=== PATIENT | male | born 1945 | race Caucasian/White ===

== ENCOUNTER → 2017-03-29 | Outpatient (CLI) | payer MEDICARE, BC ==
--- NOTE | 2017-03-29 14:06 | RADIOLOGY REPORT (SQ) ---
EXAM DESCRIPTION: CT ABD/PELVIS WITH IV ONLY COMPLETED DATE/TIME: 03/29/2017 1:30 pm REASON FOR STUDY: ABDOMINAL PAIN R10.11 RIGHT UPPER QUADRANT PAIN R11.2 NAUSEA WITH VOMITING, UNSP ECIFIED R10.9 UNSPECIFIED ABDOMINAL PAIN COMPARISON: None. TECHNIQUE: CT scan of the abdomen and pelvis performed using helical scanning technique with dynamic intravenous contrast injection. No oral contrast. Images reviewed with lung, soft tissue, and bone windows. Reconstructed coronal and sagittal MPR images reviewed. Delayed images for evaluation of the urinary system also acquired. All images stored on PACS. All CT scanners at this facility use dose modulation, iterative reconstruction, and/or weight based d osing when appropriate to reduce radiation dose to as low as reasonably achievable (ALARA). [facility]: Dose Right [facility]: CareDose [facility]: Dose Right [facility]: Teradose 4D [facility]: A V.E.T.S.c.a.r.e. CONTRAST TYPE AND DOSE: contrast/concentration: Isovue 370.00 mg/ml; Total Contrast Delivered: 100.0 ml; Total Saline Delivered: 72.0 ml RENAL FUNCTION: Creatinine 0.8 RADIATION DOSE: Up-to-date CT equipment and radiation dose reduction techniques were employed. CTDIv ol: 16.0 - 18.2 mGy. DLP: 1996 mGy-cm.. LIMITATIONS: None. FINDINGS: LOWER CHEST: Small hiatal hernia. Coronary artery calcifications. Lung bases are clear. LIVER: Normal size. No masses. No dilated ducts. SPLEEN: Normal size. No focal lesions. PANCREAS: No masses. No significant calcifications. No adjacent inflammation or peripancreatic fluid collections. Pancreatic duct not dilated. GALLBLADDER: No identified stones by CT criteria. No inflammatory changes to suggest cholecystitis. ADRENAL GLANDS: No significant masses or asymmetry. RIGHT KIDNEY AND URETER: No solid masses. An 8 mm right ureteral stone is present at the level of t he L3-4 disc space, best shown on axial image 55 and coronal image 58. This causes moderate right-si ded hydronephrosis and upper hydroureter. LEFT KIDNEY AND URETER: No solid masses. No significant calcifications. No hydronephrosis or hydr oureter. AORTA AND VESSELS: No aneurysm. No dissection. Renal arteries, SMA, celiac without stenosis. RETROPERITONEUM: No retroperitoneal adenopathy, hemorrhage or masses. BOWEL AND PERITONEAL CAVITY: No masses or inflammatory changes. No free fluid or peritoneal masses. Few descending and sigmoid colon diverticuli. APPENDIX: Normal. PELVIS: No mass. No free fluid. Normal bladder. ABDOMINAL WALL: No masses. No hernias. BONES: Diffuse degenerative changes lower lumbar spine. OTHER: No other significant finding. IMPRESSION: 8 mm right ureteral stone causing moderate right-sided hydronephrosis and hydroureter. Report called to Alfreda DEGROOT, 1400 hours 03/29/2017 TECHNICAL DOCUMENTATION: JOB ID: [id number] Quality ID # [id number]: Final reports with documentation of one or more dose reduction techniques (e.g., Au tomated exposure control, adjustment of the mA and/or kV according to patient size, use of iterative reconstruction technique) 2010 [employer]- All Rights Reserved
== END ==
LOC: RAD 11:50
PROVIDERS: ATTEND Physician Assistant
DX: R10.9 Unspecified abdominal pain (principal)
CPT/HCPCS: 74177; 82565

== ENCOUNTER 2017-07-13 13:00 | Emergency (ER) | payer MEDICARE, BC ==
--- NOTE | 2017-07-13 13:27 | ER Document Report ---
HPI - HPI Notes: Patient is a 72-year-old male with a history of progressive supranuclear palsy, RLS, hypertension who presents to the ED for evaluation status post fall from his motorized wheelchair prior to arrival. Roller Skater states that his wheel caught an object and tipped him over and he landed in the grass. Roller Skater states that he did not hit his head, lose consciousness, or have any nausea vomiting. Patient states that his glasses cut the left side of his nose, but he has no other pain or discomfort. Family states that they just wanted him checked out as precautionary. Patient states that he feels well and is ready to go home. They have not noticed any other bruising, swelling, or changes in his mentation/speech/behavior. Denies any drug allergies. Denies any headache , fever, head injury, neck pain, recent illness, URI, sore throat, chest pain, palpitations, syncope, cough, shortness of breath, wheeze, dyspnea, abdominal pain, nausea/vomiting/diarrhea, urinary retention, dysuria, hematuria, back pain , joint pain, loss of control of bowel or bladder, numbness/tingling, saddle anesthesia, muscle paralysis/weakness, or rash. - ROS Notes: REVIEW OF SYSTEMS: CONSTITUTIONAL : Denies fever, chills, or sweats. Denies recent illness. EENT: Denies eye, ear, throat, or mouth pain or symptoms. Denies nasal or sinus congestion or discharge. Denies throat, tongue, or mouth swelling or difficulty swallowing. CARDIOVASCULAR: Denies chest pain. Denies palpitations or racing or irregular heart beat. Denies ankle edema. RESPIRATORY: Denies cough, cold, or chest congestion. Denies shortness of breath, difficulty breathing, or wheezing. GASTROINTESTINAL: Denies abdominal pain or distention. Denies nausea, vomiting , or diarrhea. Denies blood in vomitus, stools, or per rectum. Denies black, tarry stools. Denies constipation. GENITOURINARY: Denies difficulty urinating, painful urination, burning, frequency, blood in urine, or discharge. MUSCULOSKELETAL: see hpi. Denies back or neck pain or stiffness. Denies joint pain or swelling. SKIN: see hpi NEUROLOGICAL: see hpi. Denies confusion or altered mental status. Denies passing out or loss of consciousness. Denies dizziness or lightheadedness. Denies headache. Denies weakness or paralysis or loss of use of either side. Denies problems with gait or speech. Denies sensory loss, numbness, or tingling. Denies seizures. PSYCHIATRIC: Denies anxiety or stress. Denies depression, suicidal ideation, or homicidal ideation. ALL OTHER SYSTEMS REVIEWED AND NEGATIVE. Dictation was performed using [employer] voice recognition software Past Medical History - Social History Smoking Status: Never Smoker Family History: Reviewed & Not Pertinent Vertical Provider Document - CONSTITUTIONAL Agree With Documented VS: Yes Notes: PHYSICAL EXAMINATION: GENERAL: Well-appearing, well-nourished and in no acute distress. A&Ox4 HEAD: Atraumatic, normocephalic. Non-tender. No lucero sign EYES: Pupils equal round and reactive to light, extraocular movements intact, sclera anicteric, conjunctiva are normal. No raccoon eyes/entrapment ENT: EAC clear b/l. TM's intact b/l without erythema, fluid, or perforation. Nares patent and without discharge. oropharynx clear without exudates. No tonsilar hypertrophy or erythema. Moist mucous membranes. No sinus tenderness. No hemotympanum/CSF discharge. Nose: Small 0.5cm abrasion to the left lateral nose. Septum midline. No epistaxis. NECK: Normal range of motion, supple without lymphadenopathy. No rigidity. No midline tenderness. Spurling negative. NEXUS negative. Chest: No flail chest. equal rise/fall. Non-tender. no ecchymosis. LUNGS: Breath sounds clear to auscultation bilaterally and equal. No wheezes rales or rhonchi. HEART: Regular rate and rhythm without murmurs, rubs, gallops. ABDOMEN: Soft, nontender, nondistended abdomen. No guarding, no rebound. No masses appreciated. Normal bowel sounds present. No CVA tenderness bilaterally. No ecchymosis. Musculoskeletal: Ext b/l: FROM to passive/active. Strength 5+/5. No deficits noted. No bony tenderness of extremities. Back: FROM to passive/active. Strength 5+/5. No vertebral point tenderness, stepoffs, or deformities. No other bony tenderness or ecchymosis. Extremities: No cyanosis, clubbing, or edema b/l. Peripheral pulses 2+. Capillary refill less than 2 seconds. NEUROLOGICAL: MMSE intact. Cranial nerves grossly intact. Normal speech. Normal sensory, motor exams. Reflexes 2+ b/l. ALDEN's negative. Pronator drift negative. Heel/christianson, finger/nose wnl. PSYCH: Normal mood, normal affect. SKIN: Warm, Dry, normal turgor, no rashes or lesions noted. - INFECTION CONTROL TRAVEL OUTSIDE OF THE [place] IN LAST 30 DAYS: No Course - Re-evaluation Re-evalutation: 07/13/17 13:27 Patient is an afebrile, well-hydrated, 72-year-old male who presents the ED with an abrasion to the left lateral nose. Vitals are stable. PE is otherwise unremarkable for any patient does have a history acute focal neurological deficits. Pt does have a h/o progressive supranuclear palsy and RLS, but family states he is at baseline with his speech/behavior/mentation. No other imaging warranted at this time based on H&P. Low suspicion for any acute glaucoma, temporal arteritis, meningitis, intracranial hemorrhage, ischemic stroke, or fracture at this time. Patient is aware that his condition can change from initial presentation and that he needs to monitor symptoms closely for any acute changes. The small abrasion the left lateral nose was cleaned and bacitracin was placed prior to discharge. Recommend conservative measures for symptoms with close monitoring. Recheck with your PCM in 3-5 days. Return to the ED with any worsening/concerning symptoms otherwise as reviewed in discharge. Patient, family, and caretakers are in agreement. Discharge - Discharge Clinical Impression: Nose abrasion, non-infected Fall from motorized mobility scooter Qualifiers: Encounter type: initial encounter Qualified Code(s): V00.831A - Fall from motorized mobility scooter, initial encounter Condition: Stable Disposition: HOME, SELF-CARE Instructions: Abrasions of the Face ([facility]) Additional Instructions: Rest, Ice if needed Triple antibiotic ointment as directed Monitor for any signs of infection is Tylenol/ibuprofen as needed Light stretches daily Strength exercises as able Moist heat and massage may help F/u with your PCP in 3-5 days for a recheck Consider consult(s) with Orthopedics/physical therapy for ongoing/worsening symptoms Return to the ED with any worsening symptoms and/or development of fever, headache, chest pain, palpitations, syncope, shortness of breath, trouble breathing, abdominal pain, n/v/d, muscle weakness/paralysis, numbness/tingling, swelling, redness, or other worsening symptoms that are concerning to you. Forms: Elevated Blood Pressure Referrals: SADIQ ARMSTRONG MD [NO LOCAL MD] - Follow up in 3-5 days
[2017-07-13 13:41] VITALS: BP 159/77
== END 2017-07-13 13:40 | disposition home or self-care (01) ==
LOC: ER 13:00
DX: S00.31XA Abrasion of nose, initial encounter (principal); V00.831A Fall from motorized mobility scooter, initial encounter; G23.1 Progressive supranuclear ophthalmoplegia [Steele-Richardson-Olszewski]
CPT/HCPCS: 99283

== ENCOUNTER 2018-01-01 10:49 | Inpatient (IN) | payer MEDICARE, BC ==
[2018-01-01] MEDS ORDERED: NORMAL SALINE 1000 ML 1,000 ML IV ONE ×2 (11:02→13:44)
--- NOTE | 2018-01-01 11:04 | ER Document Report ---
ED Medical Screen (RME) - General Chief Complaint: Breathing Difficulty Stated Complaint: BREATHING ISSUES Time Seen by Provider: 01/01/18 10:57 Notes: RAPID MEDICAL EVALUATION DISCLOSURE I have seen this patient as part of a Rapid Medical Evaluation and, if applicable, placed any initially appropriate orders. The patient will be seen and fully evaluated, including a full history and physical exam, by a provider ( in Main ED or Fast Track) when a room becomes available. 72-year-old male PMH Progresive Supranuclear Palsy here with who states he has had cough congestion ongoing for the past few days and has been progressively worsening. They called the PCP and he was prescribed Bactrim, of which he is on day 2, and he is not getting any better per the . He is having not only worsening cough but now shortness of breath. He has no prior history of pneumonia they report. He is also having some subjective fevers but unmeasured. EXAM Diffuse coarse breath sounds Normal aeration Mild tachycardia 110s TRAVEL OUTSIDE OF THE [place] IN LAST 30 DAYS: No - Related Data Allergies/Adverse Reactions: acetaminophen [From Percocet] Allergy (Verified 01/01/18 10:50) erythromycin base [From Staticin] Allergy (Verified 01/01/18 10:50) ethyl alcohol [From Staticin] Allergy (Verified 01/01/18 10:50) oxycodone [From Percocet] Allergy (Verified 01/01/18 10:50) Sulfa (Sulfonamide Antibiotics) Allergy (Verified 01/01/18 10:50) Past Medical History Renal/ Medical History: Denies: Hx Peritoneal Dialysis Past Surgical History: Reports: Hx Open Heart Surgery Physical Exam - Vital signs Vitals: Pulse Resp BP Pulse Ox 113 H 26 H 164/89 H 94 01/01/18 10:54 01/01/18 10:54 01/01/18 10:54 01/01/18 10:54 Course - Vital Signs Vital signs: Temp Pulse Resp BP Pulse Ox 113 H 26 H 164/89 H 94 01/01/18 10:54 01/01/18 10:54 01/01/18 10:54 01/01/18 10:54
--- NOTE | 2018-01-01 11:40 | ER Document Report ---
ED General - General Chief Complaint: Breathing Difficulty Stated Complaint: BREATHING ISSUES Time Seen by Provider: 01/01/18 10:57 TRAVEL OUTSIDE OF THE [place] IN LAST 30 DAYS: No - HPI Patient complains to provider of: Difficulty breathing Notes: Patient has a history of progressive supranuclear palsy coming in today for difficulty breathing PCP is Dr. Frank Mensah according to family members patient was recently seen by Dr. Mensah because of difficulty breathing was started on Bactrim patient is on day 2 of his Bactrim. Patient according to the at bedside does have a DNR. Otherwise no changes in the patient's recent medications no traveled states patient felt hot however no fever noted. Patient's had increased secretions that are thick however no color changes clear sputum. States the difficulty breathing has worsened over the last few days. Upon my evaluation patient is tachypneic however no signs of hypoxia denies any chest pain abdominal pain states slight nausea - Related Data Allergies/Adverse Reactions: acetaminophen [From Percocet] Allergy (Verified 01/01/18 10:50) erythromycin base [From Staticin] Allergy (Verified 01/01/18 10:50) ethyl alcohol [From Staticin] Allergy (Verified 01/01/18 10:50) oxycodone [From Percocet] Allergy (Verified 01/01/18 10:50) Sulfa (Sulfonamide Antibiotics) Allergy (Verified 01/01/18 10:50) Past Medical History - Social History Smoking Status: Former Smoker Chew tobacco use (# tins/day): No Frequency of alcohol use: None Drug Abuse: None Family History: Reviewed & Not Pertinent Patient has suicidal ideation: No Patient has homicidal ideation: No Renal/ Medical History: Denies: Hx Peritoneal Dialysis Past Surgical History: Reports: Hx Open Heart Surgery Review of Systems - Review of Systems Constitutional: No symptoms reported EENT: No symptoms reported Cardiovascular: No symptoms reported Respiratory: Cough, Short of breath Gastrointestinal: No symptoms reported Genitourinary: No symptoms reported Male Genitourinary: No symptoms reported Musculoskeletal: No symptoms reported Skin: No symptoms reported Hematologic/Lymphatic: No symptoms reported Neurological/Psychological: No symptoms reported -: Yes All other systems reviewed and negative Physical Exam - Vital signs Vitals: Pulse Resp BP Pulse Ox 113 H 26 H 164/89 H 94 01/01/18 10:54 01/01/18 10:54 01/01/18 10:54 01/01/18 10:54 Interpretation: Tachypneic - General General appearance: Appears well, Alert - HEENT Head: Normocephalic, Atraumatic Eyes: Normal Pupils: PERRL - Respiratory Respiratory status: Respiratory distress - Mild tachypnea, Tachypnea Chest status: Nontender Breath sounds: Rhonchi - Course right greater than left tracheal sounds as well Chest palpation: Normal - Cardiovascular Rhythm: Regular Heart sounds: Normal auscultation Murmur: No - Abdominal Inspection: Normal Distension: No distension Bowel sounds: Normal Tenderness: Nontender Organomegaly: No organomegaly - Back Back: Normal, Nontender - Extremities General upper extremity: Normal inspection, Nontender General lower extremity: Normal inspection, Nontender - Neurological Neuro grossly intact: Yes Cognition: Normal Orientation: AAOx4 [place] Coma Scale Eye Opening: Spontaneous [place] Coma Scale Verbal: Oriented [place] Coma Scale Motor: Obeys Commands [place] Coma Scale Total: 15 Cranial nerves: Other - Slurring garbled speech according to family members is normal due to his progressive supranuclear palsy Sensory: Normal - Psychological Associated symptoms: Normal affect, Normal mood - Skin Skin Temperature: Warm Skin Moisture: Dry Skin Color: Normal Course - Re-evaluation Re-evalutation: 01/01/18 15:25 Patient is tracheal coarse lung sounds to be distant thick secretions patient was given IV fluids and given DuoNeb and 3% normal saline which did improve his lung sounds however patient continued to be tachypneic no significant hypoxia noted this. He will ranged between 90 and 95 however because of increased respiratory rate and elevation of lactic acid placed patient on BiPAP for further evaluation. Discussed with hospitalist will admit the patient chest x- ray read as negative but I am concerned for possible aspiration is that the patient's lung sounds are more coarse on the right than left therefore we will cover Levaquin - Vital Signs Vital signs: Temp Pulse Resp BP Pulse Ox 113 H 33 H 145/78 H 99 01/01/18 10:54 01/01/18 14:16 01/01/18 11:33 01/01/18 14:16 - Laboratory Result Diagrams: 01/01/18 11:25 01/01/18 11:25 Laboratory results interpreted by me: 01/01/18 01/01/18 01/01/18 11:25 11:25 11:25 Monocytes % 16.1 H VBG pH Glucose 136 H Lactic Acid 2.7 H 01/01/18 11:25 Monocytes % VBG pH 7.44 H Glucose Lactic Acid Critical Care Note - Critical Care Note Total time excluding time spent on procedures (mins): 35 Comments: Patient required BiPAP for mild restrictive stress Discharge - Discharge Clinical Impression: Progressive supranuclear palsy Aspiration pneumonia Qualifiers: Aspiration pneumonia type: unspecified Laterality: unspecified laterality Lung location: unspecified part of lung Qualified Code(s): J69.0 - Pneumonitis due to inhalation of food and vomit Condition: Stable Disposition: ADMITTED INPATIENT [facility] Unit Admitted: [facility]
[2018-01-01 12:09] LABS: ABSOLUTE EOSINOPHILS # (AUTO) 0.1 10^3/uL (0.0-0.6); ABSOLUTE LYMPHOCYTES (AUTO) 0.9 10^3/uL (0.5-4.7); ABSOLUTE NEUT (AUTO) 4.1 10^3/uL (1.7-8.2); BASOPHILS % (AUTO) 0.8 % (0-2); EOSINOPHILS % (AUTO) 1.8 % (0-6); HEMATOCRIT 48.1 % (37.9-51.0); HEMOGLOBIN 16.5 g/dL (13.5-17.0); LYMPHOCYTES % (AUTO) 14.5 % (13-45); MEAN CORPUSCULAR HEMOGLOBIN 32.7 pg (27.0-33.4); MEAN CORPUSCULAR HGB CONC 34.2 g/dL (32.0-36.0); MEAN CORPUSCULAR VOLUME 95 fl (80-97); MONOCYTES % (AUTO) 16.1 % (3-13); PLATELET COUNT 228 10^3/uL (150-450); RED BLOOD COUNT 5.05 10^6/uL (4.35-5.55); RED CELL DISTRIBUTION WIDTH 13.7 % (11.5-14.0); SEGMENTED NEUTROPHILS % (AUTO) 66.8 % (42-78); TOTAL CELLS COUNTED % (AUTO) 100 %; WHITE BLOOD COUNT 6.2 10^3/uL (4.0-10.5)
[2018-01-01 12:10] LABS: VENOUS BLOOD BASE EXCESS 0.8 mmol/L; VENOUS BLOOD HCO3 24.4 mmol/L (20-32); VENOUS BLOOD PCO2 36.4 mmHg (35-63); VENOUS BLOOD PH 7.44 (7.30-7.42)
--- NOTE | 2018-01-01 12:14 | RADIOLOGY REPORT (SQ) ---
EXAM DESCRIPTION: CHEST 2 VIEWS COMPLETED DATE/TIME: 01/01/2018 11:59 am REASON FOR STUDY: cough congestion; eval pneumonia COMPARISON: None. EXAM PARAMETERS: NUMBER OF VIEWS: two views TECHNIQUE: Digital Frontal and Lateral radiographic views of the chest acquired. RADIATION DOSE: NA LIMITATIONS: none FINDINGS: LUNGS AND PLEURA: No opacities, masses or pneumothorax. No pleural effusion. MEDIASTINUM AND HILAR STRUCTURES: No masses or contour abnormalities. HEART AND VASCULAR STRUCTURES: Heart normal size. No evidence for failure. BONES: No acute findings. HARDWARE: CABG. OTHER: No other significant finding. IMPRESSION: NO ACUTE RADIOGRAPHIC FINDING IN THE CHEST. TECHNICAL DOCUMENTATION: JOB ID: [id number] [employer]- All Rights Reserved Reading location - IP/workstation name: [email or web address]
[2018-01-01 12:29] LABS: ALANINE AMINOTRANSFERASE 31 U/L (21-72); ALBUMIN 4.3 g/dL (3.5-5.0); ALKALINE PHOSPHATASE 93 U/L (38-126); ANION GAP 13 (5-19); ASPARTATE AMINO TRANSFERASE 32 U/L (17-59); BILIRUBIN,DIRECT 0.4 mg/dL (0.0-0.4); BILIRUBIN,TOTAL 0.7 mg/dL (0.2-1.3); BLOOD UREA NITROGEN 13 mg/dL (7-20); CALCIUM 9.6 mg/dL (8.4-10.2); CARBON DIOXIDE 24 mmol/L (22-30); CHLORIDE 107 mmol/L (98-107); GLUCOSE 136 mg/dL (75-110); POTASSIUM 3.7 mmol/L (3.6-5.0); SODIUM 144.2 mmol/L (137-145); TOTAL PROTEIN 7.3 g/dL (6.3-8.2)
[2018-01-01] MEDS ORDERED: IPRATROPIUM/ALBUTEROL 0.5-2.5 MG/3 ML AMPUL NEB ONE ×2 (12:30→16:00)
[2018-01-01] MEDS ORDERED: SODIUM CHLORIDE 3% FOR INHALATION 15 ML AMPUL NEB PRN (12:50)
[2018-01-01] MEDS ORDERED: LEVOFLOXACIN 500 MG/D5W RTU 500 MG/100 ML RTUPB IV ONE (14:24)
[2018-01-01] MEDS ORDERED: ONDANSETRON HCL INJ/PF 4 MG/2 ML SDV IV PRN (14:44)
--- NOTE | 2018-01-01 15:03 | PDOC H&P ---
History of Present Illness Admission Date/PCP: SADIQ ARMSTRONG MD History of Present Illness: SURYA ALEXIS is a 72 year old male patient who carries the diagnosis of progressive supranuclear palsy brought by EMS his chief complaint of shortness of breath. Since patient has supra nuclear palsy his speech has profound nasal quality so it is difficult to comprehend his speech. Brief history is obtained from his and reviewing chart this. Per his patient has had cough, congestion and shortness of breath. For the above- mentioned complaint is patient visited his primary care physician who started him on Bactrim. After taking for 2 days his conditions gets worse so they brought him to hospital. When he arrived patient is tachypneic with respiratory rate of 30, and tachycardic with heart rate of 113. His labs are unremarkable with the exception of mildly elevated lactic acid which is 2.7. Chest x-ray is also unremarkable. Probably patient has aspiration pneumonia. Further detailed history and review of systems unobtainable. Past Medical History Neurological History Note: Progressive supranuclear palsy Past Surgical History Past Surgical History: Reports: Other Social History Smoking Status: Former Smoker Frequency of Alcohol Use: None Hx Recreational Drug Use: No Drugs: None - Advance Directive Resuscitation Status: Do Not Resuscitate Family History Family History: Reviewed & Not Pertinent, CAD Parental Family History Reviewed: Yes Children Family History Reviewed: Yes Sibling(s) Family History Reviewed.: Yes Medication/Allergy Allergies/Adverse Reactions: acetaminophen [From Percocet] Allergy (Verified 01/01/18 10:50) erythromycin base [From Staticin] Allergy (Verified 01/01/18 10:50) ethyl alcohol [From Staticin] Allergy (Verified 01/01/18 10:50) oxycodone [From Percocet] Allergy (Verified 01/01/18 10:50) Sulfa (Sulfonamide Antibiotics) Allergy (Verified 01/01/18 10:50) Review of Systems ROS unobtainable: Other - Because of nausea quality of his speech Physical Exam Vital Signs: Temp Pulse Resp BP Pulse Ox 113 H 34 H 145/78 H 95 01/01/18 10:54 01/01/18 11:33 01/01/18 11:33 01/01/18 11:44 Intake & Output 12/31/17 01/01/18 01/02/18 06:59 06:59 06:59 Weight 97.522 kg General appearance: PRESENT: mild distress Head exam: PRESENT: atraumatic, normocephalic Eye exam: PRESENT: conjunctiva pink, EOMI, PERRLA. ABSENT: scleral icterus Neck exam: ABSENT: carotid bruit, JVD, lymphadenopathy, thyromegaly Respiratory exam: PRESENT: crackles, rhonchi, tachypnea Cardiovascular exam: PRESENT: tachycardia GI/Abdominal exam: PRESENT: normal bowel sounds, soft. ABSENT: distended, guarding, mass, organolmegaly, rebound, tenderness Neurological exam: PRESENT: alert, awake Psychiatric exam: PRESENT: appropriate affect, normal mood. ABSENT: homicidal ideation, suicidal ideation Results Laboratory Results: 01/01/18 11:25 01/01/18 11:25 01/01/18 01/01/18 01/01/18 11:25 11:25 11:25 WBC 6.2 RBC 5.05 Hgb 16.5 Hct 48.1 MCV 95 MCH 32.7 MCHC 34.2 RDW 13.7 Plt Count 228 Seg Neutrophils % 66.8 Lymphocytes % 14.5 Monocytes % 16.1 H Eosinophils % 1.8 Basophils % 0.8 Absolute Neutrophils 4.1 Absolute Lymphocytes 0.9 Absolute Monocytes 1.0 Absolute Eosinophils 0.1 Absolute Basophils 0.0 VBG pH VBG pCO2 VBG HCO3 VBG Base Excess Sodium 144.2 Potassium 3.7 Chloride 107 Carbon Dioxide 24 Anion Gap 13 BUN 13 Creatinine 0.81 Est GFR ( Amer) > 60 Est GFR (Non-Af Amer) > 60 Glucose 136 H Lactic Acid 2.7 H Calcium 9.6 Total Bilirubin 0.7 AST 32 ALT 31 Alkaline Phosphatase 93 Total Protein 7.3 Albumin 4.3 01/01/18 11:25 WBC RBC Hgb Hct MCV MCH MCHC RDW Plt Count Seg Neutrophils % Lymphocytes % Monocytes % Eosinophils % Basophils % Absolute Neutrophils Absolute Lymphocytes Absolute Monocytes Absolute Eosinophils Absolute Basophils VBG pH 7.44 H VBG pCO2 36.4 VBG HCO3 24.4 VBG Base Excess 0.8 Sodium Potassium Chloride Carbon Dioxide Anion Gap BUN Creatinine Est GFR ( Amer) Est GFR (Non-Af Amer) Glucose Lactic Acid Calcium Total Bilirubin AST ALT Alkaline Phosphatase Total Protein Albumin Impressions: Chest X-Ray 01/01/18 11:01 IMPRESSION: NO ACUTE RADIOGRAPHIC FINDING IN THE CHEST. Assessment & Plan - Diagnosis (1) Aspiration pneumonia Qualifiers: Lung location: unspecified part of lung Is this a current diagnosis for this admission?: Yes Plan: Patient has been started on clindamycin, DuoNeb, BiPAP and supplemental oxygen. (2) Progressive supranuclear palsy Is this a current diagnosis for this admission?: Yes Plan: Continue his home medication. - Time Time Spent: 30 to 50 Minutes - Inpatient Certification Medical Necessity: Need Close Monitoring Due to Risk of Patient Decompensation, Need for IV Antibiotics
[2018-01-01] MEDS ORDERED: ENOXAPARIN SODIUM INJ 40 MG/0.4 ML DISP.SYRIN SUBCUT ONE (15:30)
[2018-01-01] MEDS ORDERED: CLINDAMYCIN RTU 600 MG/D5W 50 ML IV ONE (16:00)
[2018-01-01] MEDS ORDERED: NITROGLYCERIN 0.4 MG/TAB 25 TAB/BOTTLE SL PRN (17:37)
[2018-01-01] MEDS ORDERED: (PENDING PHARMACY ID) (Ketotifen Fumarate [Refresh] 1 DROP) OU SCH (18:00)
[2018-01-01] MEDS ORDERED: ASPIRIN 81 MG TABLET, ENT COATED PO ONE (18:30)
[2018-01-01] MEDS ORDERED: EZETIMIBE 10 MG TABLET PO ONE (18:30)
[2018-01-01] MEDS ORDERED: CITALOPRAM HYDROBROMIDE 20 MG TABLET PO ONE (18:30)
[2018-01-01] MEDS ORDERED: IPRATROPIUM BROMIDE HFA 17 MCG/PUFF 200 PUFF/12.9 GM MDI IH ONE (19:26)
[2018-01-01] MEDS: PANTOPRAZOLE SODIUM 40 MG VIAL IV SCH (19:30)
[2018-01-01] MEDS: IPRATROPIUM BROMIDE 0.06% NASAL SPRAY 15 ML NASL SCH (19:31)
[2018-01-01] MEDS: IPRATROPIUM/ALBUTEROL 0.5-2.5 MG/3 ML AMPUL NEB SCH (20:03)
[2018-01-01] MEDS ORDERED: TEMAZEPAM 15 MG CAPSULE ONE (20:57)
[2018-01-01] MEDS: QUETIAPINE FUMARATE 25 MG TABLET PO SCH (21:12)
[2018-01-01] MEDS: TEMAZEPAM 15 MG CAPSULE PO SCH (21:12)
[2018-01-01] MEDS: CLINDAMYCIN 600 MG/D5W RTU 600 MG/50 ML RTUPB IV SCH (21:12)
[2018-01-01] MEDS: HYDROCODONE/ACETAMINOPHEN 5-325 MG TABLET PO SCH (21:12)
[2018-01-01] MEDS ORDERED: MINERAL OIL OU SCH (22:00)
[2018-01-01] MEDS ORDERED: PETROLATUM WHITE OU SCH (22:00)
[2018-01-02] MEDS: IPRATROPIUM/ALBUTEROL 0.5-2.5 MG/3 ML AMPUL NEB SCH ×4 (01:54→19:56)
[2018-01-02 05:13] LABS: ABSOLUTE EOSINOPHILS # (AUTO) 0.1 10^3/uL (0.0-0.6); ABSOLUTE LYMPHOCYTES (AUTO) 1.3 10^3/uL (0.5-4.7); ABSOLUTE MONOCYTES (AUTO) 0.9 10^3/uL (0.1-1.4); ABSOLUTE NEUT (AUTO) 2.8 10^3/uL (1.7-8.2); BASOPHILS % (AUTO) 0.5 % (0-2); LYMPHOCYTES % (AUTO) 24.5 % (13-45); MEAN CORPUSCULAR HEMOGLOBIN 32.9 pg (27.0-33.4); MEAN CORPUSCULAR HGB CONC 33.9 g/dL (32.0-36.0); MEAN CORPUSCULAR VOLUME 97 fl (80-97); MONOCYTES % (AUTO) 18.5 % (3-13); PLATELET COUNT 190 10^3/uL (150-450); RED BLOOD COUNT 4.34 10^6/uL (4.35-5.55); RED CELL DISTRIBUTION WIDTH 13.8 % (11.5-14.0); SEGMENTED NEUTROPHILS % (AUTO) 55.5 % (42-78); TOTAL CELLS COUNTED % (AUTO) 100 %; WHITE BLOOD COUNT 5.1 10^3/uL (4.0-10.5)
[2018-01-02 05:17] LABS: HEMOGLOBIN 14.3 g/dL (13.5-17.0)
[2018-01-02 05:29] LABS: ANION GAP 11 (5-19); BLOOD UREA NITROGEN 19 mg/dL (7-20); CALCIUM 8.8 mg/dL (8.4-10.2); CARBON DIOXIDE 26 mmol/L (22-30); CHLORIDE 109 mmol/L (98-107); GLUCOSE 92 mg/dL (75-110); POTASSIUM 3.7 mmol/L (3.6-5.0); SODIUM 145.8 mmol/L (137-145)
[2018-01-02] MEDS: CLINDAMYCIN 600 MG/D5W RTU 600 MG/50 ML RTUPB IV SCH ×3 (05:40→21:13)
[2018-01-02] MEDS: HYDROCODONE/ACETAMINOPHEN 5-325 MG TABLET PO SCH ×3 (05:41→21:13)
[2018-01-02] MEDS ORDERED: (PENDING PHARMACY ID) (Multivit-Min/Fa/Lycopen/Lutein [Centrum Silver Men Tablet] 1 EACH) PO SCH (10:00)
[2018-01-02] MEDS ORDERED: RAMIPRIL 10 MG CAPSULE PO SCH (10:00)
[2018-01-02] MEDS: EZETIMIBE 10 MG TABLET PO SCH (10:35)
[2018-01-02] MEDS: AMLODIPINE BESYLATE 10 MG TABLET PO SCH (10:35)
[2018-01-02] MEDS: ASPIRIN 81 MG TABLET, ENT COATED PO SCH (10:36)
[2018-01-02] MEDS: CITALOPRAM HYDROBROMIDE 20 MG TABLET PO SCH (10:36)
[2018-01-02] MEDS: IPRATROPIUM BROMIDE 0.06% NASAL SPRAY 15 ML NASL SCH ×3 (10:38→17:33)
[2018-01-02] MEDS: PREDNISOLONE ACETATE 1% OPH SUSP 5 ML OD SCH (10:39)
[2018-01-02] MEDS: POLYETHYLENE GLYCOL 3350 POWDER 17 GM/1 PACKET PO SCH (10:39)
[2018-01-02] MEDS: ENOXAPARIN SODIUM INJ 40 MG/0.4 ML DISP.SYRIN SUBCUT SCH (10:40)
[2018-01-02] MEDS ORDERED: RAMIPRIL 2.5 MG CAPSULE PO ONE (11:30)
[2018-01-02] MEDS ORDERED: RAMIPRIL 10 MG CAPSULE PO ONE (11:30)
--- NOTE | 2018-01-02 13:21 | PDOC PROGRESS REPORT ---
Subjective Progress Note for:: 01/02/18 Subjective:: I seen patient prepped and draped in bed and radiating to his breakfast. He is awake alert and communicative. Reportedly patient has a restful night after he started on BiPAP. Reason For Visit: ASPIRATION PNEUMONIA Physical Exam Vital Signs: Temp Pulse Resp BP Pulse Ox 98.1 F 83 30 H 133/74 H 96 01/02/18 07:10 01/02/18 08:19 01/02/18 08:19 01/02/18 07:10 01/02/18 08:19 Intake & Output 01/01/18 01/02/18 01/03/18 06:59 06:59 06:59 Intake Total 120 Output Total 0 Balance 120 Weight 96.9 kg General appearance: PRESENT: no acute distress, well-developed, well-nourished Eye exam: PRESENT: conjunctiva pink, EOMI, PERRLA. ABSENT: scleral icterus Neck exam: ABSENT: carotid bruit, JVD, lymphadenopathy, thyromegaly Respiratory exam: PRESENT: clear to auscultation feliz Cardiovascular exam: PRESENT: RRR. ABSENT: diastolic murmur, rubs, systolic murmur GI/Abdominal exam: PRESENT: normal bowel sounds, soft. ABSENT: distended, guarding, mass, organolmegaly, rebound, tenderness Neurological exam: PRESENT: alert, awake Psychiatric exam: PRESENT: normal mood Results Laboratory Results: 01/02/18 04:43 01/02/18 04:43 01/01/18 01/02/18 01/02/18 15:49 04:43 04:43 WBC 5.1 RBC 4.34 L Hgb 14.3 D Hct 42.0 MCV 97 MCH 32.9 MCHC 33.9 RDW 13.8 Plt Count 190 Seg Neutrophils % 55.5 Lymphocytes % 24.5 Monocytes % 18.5 H Eosinophils % 1.0 Basophils % 0.5 Absolute Neutrophils 2.8 Absolute Lymphocytes 1.3 Absolute Monocytes 0.9 Absolute Eosinophils 0.1 Absolute Basophils 0.0 Sodium 145.8 H Potassium 3.7 Chloride 109 H Carbon Dioxide 26 Anion Gap 11 BUN 19 Creatinine 0.67 Est GFR ( Amer) > 60 Est GFR (Non-Af Amer) > 60 Glucose 92 Lactic Acid 1.4 Calcium 8.8 Magnesium 2.4 H Impressions: Chest X-Ray 01/01/18 11:01 IMPRESSION: NO ACUTE RADIOGRAPHIC FINDING IN THE CHEST. Assessment & Plan - Diagnosis (1) Aspiration pneumonia Qualifiers: Aspiration pneumonia type: unspecified Laterality: unspecified laterality Lung location: unspecified part of lung Qualified Code(s): J69.0 - Pneumonitis due to inhalation of food and vomit Is this a current diagnosis for this admission?: Yes Plan: I will continue his clindamycin. (2) Progressive supranuclear palsy Is this a current diagnosis for this admission?: Yes Plan: Continue his home medication. - Time Time Spent with patient: 25-34 minutes
[2018-01-02] MEDS: PANTOPRAZOLE SODIUM 40 MG VIAL IV SCH (17:33)
[2018-01-02] MEDS: QUETIAPINE FUMARATE 25 MG TABLET PO SCH (21:13)
[2018-01-02] MEDS: TEMAZEPAM 15 MG CAPSULE PO SCH (21:13)
[2018-01-03] MEDS: IPRATROPIUM/ALBUTEROL 0.5-2.5 MG/3 ML AMPUL NEB SCH ×3 (02:08→14:04)
[2018-01-03 05:29] LABS: ABSOLUTE EOSINOPHILS # (AUTO) 0.1 10^3/uL (0.0-0.6); ABSOLUTE MONOCYTES (AUTO) 0.9 10^3/uL (0.1-1.4); BASOPHILS % (AUTO) 0.6 % (0-2); EOSINOPHILS % (AUTO) 1.5 % (0-6); HEMATOCRIT 42.1 % (37.9-51.0); HEMOGLOBIN 14.4 g/dL (13.5-17.0); LYMPHOCYTES % (AUTO) 14.7 % (13-45); MEAN CORPUSCULAR HEMOGLOBIN 32.6 pg (27.0-33.4); MEAN CORPUSCULAR HGB CONC 34.1 g/dL (32.0-36.0); MEAN CORPUSCULAR VOLUME 95 fl (80-97); MONOCYTES % (AUTO) 12.7 % (3-13); PLATELET COUNT 211 10^3/uL (150-450); RED BLOOD COUNT 4.42 10^6/uL (4.35-5.55); RED CELL DISTRIBUTION WIDTH 13.6 % (11.5-14.0); SEGMENTED NEUTROPHILS % (AUTO) 70.5 % (42-78); TOTAL CELLS COUNTED % (AUTO) 100 %
[2018-01-03 05:53] LABS: ANION GAP 12 (5-19); BLOOD UREA NITROGEN 14 mg/dL (7-20); CALCIUM 8.9 mg/dL (8.4-10.2); CARBON DIOXIDE 27 mmol/L (22-30); CHLORIDE 108 mmol/L (98-107); GLUCOSE 113 mg/dL (75-110); POTASSIUM 3.9 mmol/L (3.6-5.0); SODIUM 147.4 mmol/L (137-145)
[2018-01-03] MEDS: HYDROCODONE/ACETAMINOPHEN 5-325 MG TABLET PO SCH (06:28)
[2018-01-03] MEDS: CLINDAMYCIN 600 MG/D5W RTU 600 MG/50 ML RTUPB IV SCH (06:28)
--- NOTE | 2018-01-03 09:12 | PDOC DISCHARGE SUMMARY ---
General - Admit/Disc Date/PCP Admission Date/Primary Care Provider: 01/01/18 15:37 SADIQ ARMSTRONG MD Discharge Date: 01/03/18 - Discharge Diagnosis (1) Aspiration pneumonia Is this a current diagnosis for this admission?: Yes (2) Progressive supranuclear palsy Is this a current diagnosis for this admission?: Yes - Additional Information Resuscitation Status: Do Not Resuscitate Discharge Diet: Regular Discharge Activity: Other - Patient does not ambulate Prescriptions: Clindamycin HCl 300 mg PO Q8 #14 capsule Ipratropium/Albuterol Sulfate [Duoneb 3 ml Ampul] 3 ml NEB RTQ12 #14 [email or web address] Home Medications: Amlodipine Besylate [Norvasc 10 mg Tablet] 10 mg PO DAILY 01/01/18 Aspirin [Aspirin EC] 81 mg PO DAILY 01/01/18 Citalopram Hydrobromide [Celexa] 20 mg PO DAILY 01/01/18 Ezetimibe [Zetia 10 mg Tablet] 10 mg PO DAILY 01/01/18 Famotidine [Pepcid 20 mg Tablet] 20 mg PO BID 01/01/18 Hydrocodone/Acetaminophen [Hydrocodone-Acetamin 5-325 mg] 1 each PO Q8 01/01/18 Ipratropium [place] [Atrovent 0.06% Nasal [place]] 2 spray NASL TID 01/01/18 Ketotifen Fumarate [Refresh] 1 drop OU TID 01/01/18 Mineral Oil/Petrolatum,White [Refresh P.m. Ointment] 1 drop OU QHS 01/01/18 Multivit-Min/FA/Lycopen/Lutein [Centrum Silver Men Tablet] 1 each PO DAILY 01/01 Nitroglycerin [Nitrostat 0.4 mg (1/150 Gr) Tabs 25/Bottle] 1 tab SL Q5MP PRN Polyethylene Glycol 3350 [Miralax Powder 17 gm/Packet] 1 packet PO DAILY Prednisolone Acetate [Pred Forte] 1 drop OD DAILY 01/01/18 Quetiapine Fumarate [Seroquel] 25 mg PO QHS 01/01/18 Ramipril [Altace 10 mg Capsule] 12.5 mg PO DAILY 01/01/18 Temazepam [Restoril] 30 mg PO QHS 01/01/18 Clindamycin HCl 300 mg PO Q8 #14 capsule 01/03/18 Ipratropium/Albuterol Sulfate [Duoneb 3 ml Ampul] 3 ml NEB RTQ12 #14 vial.neb History of Present Illness History of Present Illness: SRUYA ALEXIS is a 72 year old male patient who carries the diagnosis of progressive supranuclear palsy brought by EMS his chief complaint of shortness of breath. Since patient has supra nuclear palsy his speech has profound nasal quality so it is difficult to comprehend his speech. Brief history is obtained from his and reviewing chart this. Per his patient has had cough, congestion and shortness of breath. For the above- mentioned complaint is patient visited his primary care physician who started him on Bactrim. After taking for 2 days his conditions gets worse so they brought him to hospital. When he arrived patient is tachypneic with respiratory rate of 30, and tachycardic with heart rate of 113. His labs are unremarkable with the exception of mildly elevated lactic acid which is 2.7. Chest x-ray is also unremarkable. Probably patient has aspiration pneumonia. Further detailed history and review of systems unobtainable. Hospital Course Hospital Course: This is a 72 years old male patient presented with chief complaint of shortness of breath. Since patient has underlying progressive supranuclear palsy which affected his his respiration and swallowing the possibility of aspiration pneumonia considered and patient has been managed with supplemental oxygen, clindamycin and bronchodilators. Patient has been doing throughout his stay. His vital signs are stable and his labs are within normal limits and patient is good for discharge. Patient discharged with clindamycin and nebulizer machine for bronchodilator. I will continue all his home medication and follow-up with his primary care physician. Physical Exam Vital Signs: Temp Pulse Resp BP Pulse Ox 97.5 F 97 18 144/70 H 97 01/03/18 07:47 01/03/18 08:37 01/03/18 08:37 01/03/18 07:47 01/03/18 08:37 Intake & Output 01/02/18 01/03/18 01/04/18 06:59 06:59 06:59 Intake Total 120 694 Output Total 0 770 Balance 120 -76 Weight 96.9 kg 98.2 kg General appearance: PRESENT: no acute distress, well-developed, well-nourished Head exam: PRESENT: atraumatic, normocephalic Respiratory exam: PRESENT: clear to auscultation feliz. ABSENT: rales, rhonchi, wheezes Cardiovascular exam: PRESENT: RRR. ABSENT: diastolic murmur, rubs, systolic murmur GI/Abdominal exam: PRESENT: normal bowel sounds, soft. ABSENT: distended, guarding, mass, organolmegaly, rebound, tenderness Neurological exam: PRESENT: alert, awake Results Laboratory Results: 01/03/18 05:15 01/03/18 05:15 01/03/18 01/03/18 05:15 05:15 WBC 7.0 RBC 4.42 Hgb 14.4 Hct 42.1 MCV 95 MCH 32.6 MCHC 34.1 RDW 13.6 Plt Count 211 Seg Neutrophils % 70.5 Lymphocytes % 14.7 Monocytes % 12.7 Eosinophils % 1.5 Basophils % 0.6 Absolute Neutrophils 5.0 Absolute Lymphocytes 1.0 Absolute Monocytes 0.9 Absolute Eosinophils 0.1 Absolute Basophils 0.0 Sodium 147.4 H Potassium 3.9 Chloride 108 H Carbon Dioxide 27 Anion Gap 12 BUN 14 Creatinine 0.63 Est GFR ( Amer) > 60 Est GFR (Non-Af Amer) > 60 Glucose 113 H Calcium 8.9 Impressions: Chest X-Ray 01/01/18 11:01 IMPRESSION: NO ACUTE RADIOGRAPHIC FINDING IN THE CHEST. Qualifiers - * PATIENT BEING DISCHARGED WITH ANY OF THE FOLLOWING DIAGNOSIS: No
[2018-01-03 09:26] VITALS: BP 147/76
[2018-01-03] MEDS ORDERED: RAMIPRIL 10 MG CAPSULE PO SCH (10:00)
[2018-01-03] MEDS ORDERED: RAMIPRIL 2.5 MG CAPSULE PO SCH (10:00)
[2018-01-03] MEDS: POLYETHYLENE GLYCOL 3350 POWDER 17 GM/1 PACKET PO SCH (10:17)
[2018-01-03] MEDS: CITALOPRAM HYDROBROMIDE 20 MG TABLET PO SCH (10:19)
[2018-01-03] MEDS: ASPIRIN 81 MG TABLET, ENT COATED PO SCH (10:20)
[2018-01-03] MEDS: EZETIMIBE 10 MG TABLET PO SCH (10:20)
[2018-01-03] MEDS: AMLODIPINE BESYLATE 10 MG TABLET PO SCH (10:20)
[2018-01-03] MEDS: PREDNISOLONE ACETATE 1% OPH SUSP 5 ML OD SCH (10:21)
[2018-01-03] MEDS: IPRATROPIUM BROMIDE 0.06% NASAL SPRAY 15 ML NASL SCH (10:21)
[2018-01-03] MEDS: ENOXAPARIN SODIUM INJ 40 MG/0.4 ML DISP.SYRIN SUBCUT SCH (10:22)
[2018-01-03] MEDS ORDERED: CARBOXYMETHYLCELLULOSE SOD 0.5% 0.4 ML DROPERETTE OU SCH ×2 (14:00)
[2018-01-03] MEDS ORDERED: MINERAL OIL/PETROLATUM,WHITE OPH OINT 3.5 GM OU SCH (22:00)
[2018-01-04] MEDS ORDERED: MULTIVITAMIN TABLET PO SCH (10:00)
== END 2018-01-03 14:43 | disposition home or self-care (01) | DRG 178 ==
LOC: ER 10:49 → EH 15:37 → 3W 16:52
PROVIDERS: ADMIT Internal Medicine; ATTEND Internal Medicine
PROC: 3E0F73Z Introduction of Anti-inflammatory into Respiratory Tract, Via Natural or Artificial Opening (ICD-10-PCS; principal; 2018-01-01)
PROC: 5A09457 Assistance with Respiratory Ventilation, 24-96 Consecutive Hours, Continuous Positive Airway Pressure (ICD-10-PCS; 2018-01-01)
DX: J69.0 Pneumonitis due to inhalation of food and vomit (principal); G23.1 Progressive supranuclear ophthalmoplegia [Steele-Richardson-Olszewski]; Z66 Do not resuscitate; Z79.899 Other long term (current) drug therapy; Z79.82 Long term (current) use of aspirin; Z87.891 Personal history of nicotine dependence; Z82.49 Family history of ischemic heart disease and other diseases of the circulatory system; Z88.6 Allergy status to analgesic agent; Z88.3 Allergy status to other anti-infective agents; Z88.2 Allergy status to sulfonamides
CPT/HCPCS: 36415; 71046; 80048; 80053; 82803; 83605; 83735; 84443; 85025; 87040; 94640; 94660; 96361; 96365; 99291; J1650; J1956; J3490; J7030; J7620; S0164

== ENCOUNTER 2018-01-10 09:41 | Inpatient (IN) | payer MEDICARE, BC ==
--- NOTE | 2018-01-10 10:20 | ER Document Report ---
ED Medical Screen (RME) - General Chief Complaint: Breathing Difficulty Stated Complaint: BREATHING ISSUES Time Seen by Provider: 01/10/18 10:16 Notes: RAPID MEDICAL EVALUATION DISCLOSURE I have seen this patient as part of a Rapid Medical Evaluation and, if applicable, placed any initially appropriate orders. The patient will be seen and fully evaluated, including a full history and physical exam, by a provider ( in Main ED or Fast Track) when a room becomes available. 72-year-old male recently discharged for aspiration pneumonia back again with complaints of shortness of breath and cough that has worsened since discharge. He is on his last day of antibiotics today. The cough is not productive. They deny fevers chills. EXAM CTAB RRR TRAVEL OUTSIDE OF THE [place] IN LAST 30 DAYS: No - Related Data Allergies/Adverse Reactions: acetaminophen [From Percocet] Allergy (Verified 01/10/18 10:18) erythromycin base [From Staticin] Allergy (Verified 01/10/18 10:18) ethyl alcohol [From Staticin] Allergy (Verified 01/10/18 10:18) oxycodone [From Percocet] Allergy (Verified 01/10/18 10:18) Njjfdwb-Xxq-Vwo Reductase Inhibitor Allergy (Verified 01/10/18 10:18) Sulfa (Sulfonamide Antibiotics) Allergy (Verified 01/10/18 10:18) Past Medical History - Social History Chew tobacco use (# tins/day): No Frequency of alcohol use: None Drug Abuse: None Renal/ Medical History: Denies: Hx Peritoneal Dialysis Psychiatric Medical History: Reports: Hx Depression Past Surgical History: Reports: Hx Open Heart Surgery, Other - Immunizations History of Influenza Vaccine for 05/2017 - 10/2017 Season: Unknown Physical Exam - Vital signs Vitals: Temp Resp BP 98.4 F 22 H 144/87 H 01/10/18 09:48 01/10/18 09:48 01/10/18 09:48 Course - Vital Signs Vital signs: Temp Pulse Resp BP Pulse Ox 98.4 F 22 H 144/87 H 01/10/18 09:48 01/10/18 09:48 01/10/18 09:48 Doctor's Discharge - Discharge Referrals: SADIQ ARMSTRONG MD [Primary Care Provider] - Follow up as needed
--- NOTE | 2018-01-10 11:16 | RADIOLOGY REPORT (SQ) ---
EXAM DESCRIPTION: CHEST 2 VIEWS COMPLETED DATE/TIME: 01/10/2018 11:07 am REASON FOR STUDY: cough SOB COMPARISON: 01/01/2018. EXAM PARAMETERS: NUMBER OF VIEWS: two views TECHNIQUE: Digital Frontal and Lateral radiographic views of the chest acquired. RADIATION DOSE: NA LIMITATIONS: none FINDINGS: LUNGS AND PLEURA: No opacities, masses or pneumothorax. No pleural effusion. MEDIASTINUM AND HILAR STRUCTURES: No masses or contour abnormalities. HEART AND VASCULAR STRUCTURES: Heart normal size. No evidence for failure. BONES: No acute findings. HARDWARE: Sternotomy wires. OTHER: No other significant finding. IMPRESSION: NO ACUTE RADIOGRAPHIC FINDING IN THE CHEST. TECHNICAL DOCUMENTATION: JOB ID: [id number]- All Rights Reserved Reading location - IP/workstation name: [email or web address]
[2018-01-10] MEDS ORDERED: IPRATROPIUM/ALBUTEROL 0.5-2.5 MG/3 ML AMPUL NEB ONE ×2 (11:17→18:00)
[2018-01-10 11:18] LABS: ABSOLUTE BASOPHILS # (AUTO) 0.1 10^3/uL (0.0-0.2); ABSOLUTE EOSINOPHILS # (AUTO) 0.1 10^3/uL (0.0-0.6); ABSOLUTE LYMPHOCYTES (AUTO) 1.4 10^3/uL (0.5-4.7); ABSOLUTE MONOCYTES (AUTO) 1.4 10^3/uL (0.1-1.4); BASOPHILS % (AUTO) 0.4 % (0-2); EOSINOPHILS % (AUTO) 0.8 % (0-6); HEMATOCRIT 49.7 % (37.9-51.0); HEMOGLOBIN 16.8 g/dL (13.5-17.0); LYMPHOCYTES % (AUTO) 8.7 % (13-45); MEAN CORPUSCULAR HEMOGLOBIN 32.5 pg (27.0-33.4); MEAN CORPUSCULAR HGB CONC 33.9 g/dL (32.0-36.0); MEAN CORPUSCULAR VOLUME 96 fl (80-97); MONOCYTES % (AUTO) 8.6 % (3-13); PLATELET COUNT 335 10^3/uL (150-450); RED BLOOD COUNT 5.18 10^6/uL (4.35-5.55); RED CELL DISTRIBUTION WIDTH 14.1 % (11.5-14.0); SEGMENTED NEUTROPHILS % (AUTO) 81.5 % (42-78); TOTAL CELLS COUNTED % (AUTO) 100 %; WHITE BLOOD COUNT 15.9 10^3/uL (4.0-10.5)
[2018-01-10 11:33] LABS: ANION GAP 10 (5-19); BLOOD UREA NITROGEN 14 mg/dL (7-20); CALCIUM 9.6 mg/dL (8.4-10.2); CARBON DIOXIDE 26 mmol/L (22-30); CHLORIDE 109 mmol/L (98-107); GLUCOSE 145 mg/dL (75-110); POTASSIUM 4.6 mmol/L (3.6-5.0); SODIUM 144.8 mmol/L (137-145)
[2018-01-10 12:12] LABS: VENOUS BLOOD BASE EXCESS -9.4 mmol/L; VENOUS BLOOD HCO3 12.4 mmol/L (20-32); VENOUS BLOOD PH 7.46 (7.30-7.42)
--- NOTE | 2018-01-10 12:17 | ER Document Report ---
ED Respiratory Problem - General Chief Complaint: Breathing Difficulty Stated Complaint: BREATHING ISSUES Time Seen by Provider: 01/10/18 10:16 Notes: Patient is here complaining of difficulty breathing. Patient has a history of apparent aspiration pneumonia recently and was admitted to this hospital over a week ago and discharge after a few days stay, exactly 1 week ago on an antibiotic and a nebulizer to use twice a day. He is not on any steroids. He says he has a cough which sounds congested, but is not able to get up any phlegm. Patient complains of abdominal pains when he does cough. Last bowel movement was yesterday. No vomiting. Has not been running any fevers. He has a known diagnosis of PSP (progressive supranuclear palsy) which apparently causes him some difficulty with his breathing. He does not have a history of COPD or other lung disease. Does not smoke. TRAVEL OUTSIDE OF THE [place] IN LAST 30 DAYS: No - Related Data Allergies/Adverse Reactions: acetaminophen [From Percocet] Allergy (Verified 01/10/18 10:18) erythromycin base [From Staticin] Allergy (Verified 01/10/18 10:18) ethyl alcohol [From Staticin] Allergy (Verified 01/10/18 10:18) oxycodone [From Percocet] Allergy (Verified 01/10/18 10:18) Rhwtrct-Ryv-Wyq Reductase Inhibitor Allergy (Verified 01/10/18 10:18) Sulfa (Sulfonamide Antibiotics) Allergy (Verified 01/10/18 10:18) Past Medical History - Social History Smoking Status: Never Smoker Chew tobacco use (# tins/day): No Frequency of alcohol use: None Drug Abuse: None Family History: Reviewed & Not Pertinent Patient has suicidal ideation: No Patient has homicidal ideation: No - Past Medical History Cardiac Medical History: Reports: Hx Hypertension Pulmonary Medical History: Reports: Hx Pneumonia - Aspiration Denies: Hx Asthma, Hx COPD Neurological Medical History: Denies: Hx Cerebrovascular Accident Psychiatric Medical History: Reports: Hx Depression Past Surgical History: Reports: Hx Coronary Artery Bypass Graft, Hx Open Heart Surgery - CABGx3, Other Review of Systems - Review of Systems Notes: REVIEW OF SYSTEMS: CONSTITUTIONAL : Denies fever. Vital signs are essentially normal. EENT: Denies eye, ear, nose or mouth or throat pain or other symptoms. Speech sounds as if patient is having difficulty controlling his sputum. CARDIOVASCULAR: Denies chest pain. RESPIRATORY: Has a cough, but can get phlegm up. Shortness of breath. See HPI. GASTROINTESTINAL: Has abdominal pain with coughing. Last bowel movement yesterday. GENITOURINARY: Denies difficulty or painful urinating, urinary frequency, blood in urine. MUSCULOSKELETAL: Denies back or neck pain. Denies joint pain or swelling. SKIN: Denies rash or skin lesions. NEUROLOGICAL: Denies LOC or altered mental status. Denies headache. Denies sensory loss or motor deficits. Difficulty swallowing. ALL OTHER SYSTEMS REVIEWED AND NEGATIVE. Physical Exam - Vital signs Vitals: Temp Resp BP 98.4 F 22 H 144/87 H 01/10/18 09:48 01/10/18 09:48 01/10/18 09:48 Interpretation: Normal - Notes Notes: PHYSICAL EXAMINATION: GENERAL: Ill-appearing, although in no acute distress. Triage vital signs are all essentially normal. HEAD: Atraumatic, normocephalic. EYES: Pupils equal round and reactive to light, extraocular movements intact. ENT: oropharynx clear without exudates. Moist mucous membranes. Patient speech sounds as if he is having difficulty handling secretions. NECK: Normal range of motion, supple. LUNGS: Breath sounds with a few scattered rhonchi, but no significant wheezes. Somewhat shallow and increased heart rate. HEART: Regular rate and rhythm without murmurs. ABDOMEN: Soft, nontender. Appears somewhat distended, but not tender and no guarding or rebound. No masses. BACK: No tenderness throughout entire back. EXTREMITIES: Normal range of motion without pain. NEUROLOGICAL: Speech sounds slightly slurred and compromised by oral secretions and handling the same. Gait not tested because of patient's discomfort. Grossly normal sensory, motor, and reflex exams. Awake, alert, and oriented x3. PSYCH: Normal mood, normal affect. SKIN: Warm, dry, no rashes. Course - Re-evaluation Re-evalutation: 01/10/18 12:35 Nebulizer treatments seem to help some, but patient says he cannot cough up any phlegm. In light of the patient's elevated white count as well as his significantly decreased PCO2, I have spoken with the hospitalist who will readmit the patient for more aggressive pulmonary care. - Vital Signs Vital signs: Temp Pulse Resp BP Pulse Ox 98.4 F 22 H 144/87 H 01/10/18 09:48 01/10/18 09:48 01/10/18 09:48 - Laboratory Result Diagrams: 01/10/18 10:44 01/10/18 10:44 Laboratory results interpreted by me: 01/10/18 01/10/18 01/10/18 10:44 10:44 11:50 WBC 15.9 H RDW 14.1 H Seg Neutrophils % 81.5 H Lymphocytes % 8.7 L Absolute Neutrophils 13.0 H VBG pH 7.46 H VBG pCO2 18.0 L* VBG HCO3 12.4 L Chloride 109 H Glucose 145 H 01/10/18 12:36 WBC noted. Venous PCO2 noted. - Diagnostic Test Radiology results interpreted by ri: 01/10/18 12:35 Chest x-ray is normal. Discharge - Discharge Clinical Impression: Pneumonia Condition: Fair Disposition: ADMITTED INPATIENT Admitting Provider: Hospitalist Unit Admitted: Telemetry Referrals: SADIQ ARMSTRONG MD [Primary Care Provider] - Follow up as needed
[2018-01-10] MEDS ORDERED: LIDOCAINE 1% INJ-PF (10 MG/ML) 30 ML SDV NEB ONE (14:12)
--- NOTE | 2018-01-10 14:13 | RADIOLOGY REPORT (SQ) ---
EXAM DESCRIPTION: CTA CHEST COMPLETED DATE/TIME: 01/10/2018 1:53 pm REASON FOR STUDY: sob, cough. r/o PE or PNA COMPARISON: None. TECHNIQUE: CT scan of the chest performed using helical scanning technique with dynamic intravenous contrast injection. Images reviewed with lung, soft tissue and bone windows. Reconstructed coronal and sagittal MPR images reviewed. Additional 3 dimensional post-processing performed to develop Maximal Intensity Projection images (HI P). All images stored on PACS. All CT scanners at this facility use dose modulation, iterative reconstruction, and/or weight based d osing when appropriate to reduce radiation dose to as low as reasonably achievable (ALARA). [facility]: Dose Right [facility]: CareDose [facility]: Dose Right [facility]: Teradose 4D [facility]: [place] CONTRAST TYPE AND DOSE: contrast/concentration: Isovue 370.00 mg/ml; Total Contrast Delivered: 80.0 ml; Total Saline Delivered: 90.0 ml Contrast bolus optimized for the pulmonary arteries. Not diagnostic for the aorta. RENAL FUNCTION: BUN 14 creatinine 0.69. RADIATION DOSE: CT Rad equipment meets quality standard of care and radiation dose reduction techniq ues were employed. CTDIvol: 28.1 - 30.7 mGy. DLP: 1131 mGy-cm. . LIMITATIONS: None. FINDINGS: LUNGS AND PLEURA: No masses, infiltrates, pneumothorax. No pleural effusions, calcificati ons. AORTA AND GREAT VESSELS: No aneurysm. Contrast bolus not optimized for the aorta. HEART: No pericardial effusion. No significant coronary artery calcifications. PULMONARY ARTERIES: No emboli visualized in the main pulmonary arteries or the segmental branches. HILAR AND MEDIASTINAL STRUCTURES: No identified masses or abnormal nodes. HARDWARE: Sternotomy wires. UPPER ABDOMEN: No significant findings. Limited exam. THYROID AND OTHER SOFT TISSUES: No masses. No adenopathy. BONES: No acute or significant finding. 3D MIPS: Confirm above findings. OTHER: No other significant finding. IMPRESSION: NORMAL CTA OF THE CHEST. NO PULMONARY EMBOLI. COMMENT: Quality ID # [id number]: Final reports with documentation of one or more dose reduction techniques (e.g., Automated exposure control, adjustment of the mA and/or kV according to patient size, use of iterative reconstruction technique) TECHNICAL DOCUMENTATION: JOB ID: [id number] [employer]- All Rights Reserved Reading location - IP/workstation name: [email or web address]
[2018-01-10] MEDS ORDERED: ONDANSETRON 4 MG TAB.RAPDIS PO PRN (16:25)
[2018-01-10] MEDS ORDERED: ONDANSETRON HCL INJ/PF 4 MG/2 ML SDV IV PRN (16:25)
[2018-01-10] MEDS: PIPERACILLIN SODIUM/TAZOBACTAM 3.375 GM in NORMAL SALINE 100 ML IV SCH ×2 (18:40→23:51)
[2018-01-10] MEDS: NORMAL SALINE 1000 ML 1,000 ML IV PRN (18:41)
[2018-01-10] MEDS: IPRATROPIUM/ALBUTEROL 0.5-2.5 MG/3 ML AMPUL NEB SCH ×2 (20:14→23:49)
--- NOTE | 2018-01-10 20:14 | PDOC H&P ---
History of Present Illness Admission Date/PCP: 01/10/18 13:12 SADIQ ARMSTRONG MD History of Present Illness: SURYA LUNSFORD is a 72 year old male with progressive supranuclear palsy. He was just discharged from our facility a week ago where he was treated for aspiration pneumonia. He was sent out on p.o. clindamycin. The patient's neurologic status has worsened over recent months. The patient's family states that he was doing fine at home but developed increasing cough and congestion and he was brought back to the hospital for further evaluation and treatment. Today when I saw the patient he states that he has to cough. He states that his abdomen is sore from the frequent coughing. It is very difficult for him to communicate. A good review of systems could not be obtained Past Medical History Cardiac Medical History: Reports: Hypertension Pulmonary Medical History: Reports: Pneumonia - Aspiration Denies: Asthma, Chronic Obstructive Pulmonary Disease (COPD) EENT Medical History: Reports: None Neurological Medical History: Reports: None Endocrine Medical History: Reports: None Renal/ Medical History: Reports: None Malignancy Medical History: Reports: None GI Medical History: Reports: None Musculoskeltal Medical History: Reports: None Skin Medical History: Reports: None Psychiatric Medical History: Reports: Depression Traumatic Medical History: Reports: None Hematology: Reports: None Past Surgical History Past Surgical History: Reports: Coronary Artery Bypass Graft, Other Social History Information Source: Relative Lives with: Spouse/Significant other Smoking Status: Never Smoker Frequency of Alcohol Use: None Hx Recreational Drug Use: No Drugs: None Hx Prescription Drug Abuse: No - Advance Directive Resuscitation Status: Do Not Resuscitate Surrogate healthcare decision maker:: His Emma Lunsford is his surrogate decision maker. Family History Family History: Reviewed & Not Pertinent Parental Family History Reviewed: Yes Children Family History Reviewed: Yes Sibling(s) Family History Reviewed.: Yes Medication/Allergy Home Medications: Amlodipine Besylate [Norvasc 10 mg Tablet] 10 mg PO DAILY 01/10/18 Aspirin [Ecotrin 81 mg EC Tablet] 81 mg PO DAILY 01/10/18 Baclofen [Baclofen 10 mg Tablet] 5 mg PO Q8 01/10/18 Carboxymethylcellulos/Glycerin [Refresh Optive Gel Eye Drops] 1 drop OU BID 12/23 Citalopram Hydrobromide [Citalopram HBr] 20 mg PO DAILY 01/10/18 Ezetimibe [Zetia 10 mg Tablet] 10 mg PO QHS 01/10/18 Famotidine [Pepcid 20 mg Tablet] 20 mg PO BID 01/10/18 Hydrocodone/Acetaminophen [Hydrocodone-Acetamin 7.5-325] 1 tab PO Q8HP PRN 01/10 Ipratropium/Albuterol Sulfate [Iprat-Albut 0.5-3(2.5) mg/3 ml] 3 ml NEB Q8HP PRN 01/10/18 Mineral Oil/Petrolatum,White [Refresh P.m. Ointment] 1 applic OU QHS 01/10/18 Polyethylene Glycol 3350 [Miralax Powder 17 gm/Packet] 17 gm PO DAILY 01/10/18 Prednisolone Acetate [Pred Forte] 1 drop OD DAILY 01/10/18 Quetiapine Fumarate [Seroquel 25 mg Tablet] 25 mg PO QHS 01/10/18 Ramipril [Altace 10 mg Capsule] 10 mg PO DAILY 01/10/18 Ramipril [Altace 2.5 mg Capsule] 2.5 mg PO DAILY 01/10/18 Temazepam [Restoril] 30 mg PO QHS 01/10/18 Allergies/Adverse Reactions: erythromycin base [From Staticin] Allergy (Verified 01/10/18 10:18) ethyl alcohol [From Staticin] Allergy (Verified 01/10/18 10:18) oxycodone [From Percocet] Allergy (Verified 01/10/18 10:18) Nigvlfr-Cpy-Ssp Reductase Inhibitor Allergy (Verified 01/10/18 10:18) Sulfa (Sulfonamide Antibiotics) Allergy (Verified 01/10/18 10:18) Review of Systems ROS unobtainable: Other - The patient is unable to speak coherently. He is able to tell me that he is having shortness of breath and that the coughing hurts his abdomen. Otherwise further review of systems could not be obtained Physical Exam Vital Signs: Temp Pulse Resp BP Pulse Ox 97.8 F 89 28 H 152/73 H 97 01/10/18 14:41 01/10/18 14:41 01/10/18 14:41 01/10/18 14:41 01/10/18 14:41 Intake & Output 01/09/18 01/10/18 01/11/18 06:59 06:59 06:59 Weight 92.2 kg General appearance: PRESENT: other - Acutely ill appearing patient that is frequently coughing and moaning. Head exam: PRESENT: atraumatic, normocephalic Eye exam: PRESENT: conjunctiva pink, EOMI, PERRLA. ABSENT: scleral icterus Mouth exam: PRESENT: moist, tongue midline Neck exam: ABSENT: carotid bruit, JVD, lymphadenopathy, thyromegaly Respiratory exam: PRESENT: clear to auscultation feliz, other - This was not an ideal exam. He is frequently coughing but his lungs sound fairly clear Cardiovascular exam: PRESENT: RRR. ABSENT: diastolic murmur, rubs, systolic murmur Vascular exam: PRESENT: normal capillary refill GI/Abdominal exam: PRESENT: normal bowel sounds, soft, tenderness - Somewhat tender in the upper abdomen due to the frequent coughing. ABSENT: distended, guarding, mass, organolmegaly, rebound Rectal exam: PRESENT: deferred Extremities exam: ABSENT: calf tenderness, clubbing, pedal edema Musculoskeletal exam: ABSENT: ambulatory Neurological exam: PRESENT: alert, awake, oriented to person, oriented to place , oriented to time, oriented to situation, other - Poor coordination but good muscle strength.. ABSENT: motor sensory deficit Psychiatric exam: PRESENT: appropriate affect, normal mood. ABSENT: homicidal ideation, suicidal ideation Skin exam: PRESENT: dry, intact, warm. ABSENT: cyanosis, rash Results Impressions: Chest/Abdomen CTA 01/10/18 00:00 IMPRESSION: NORMAL CTA OF THE CHEST. NO PULMONARY EMBOLI. Chest X-Ray 01/10/18 10:19 IMPRESSION: NO ACUTE RADIOGRAPHIC FINDING IN THE CHEST. Assessment & Plan - Diagnosis (1) Aspiration pneumonitis Is this a current diagnosis for this admission?: Yes Plan: The patient did have a CT scan of his chest. No evidence of a kim pneumonia. I do believe he is chronically aspirating. I am going to get speech therapy to evaluate him. He had a video swallow about a year ago. This likely will need to be repeated. We may need to further modify his diet. I am going to place him on IV Zosyn. (2) Progressive supranuclear palsy Is this a current diagnosis for this admission?: Yes Plan: Again this seems to be worsening. The patient's family states that he was supposed to be evaluated as an outpatient by physical therapy and occupational therapy but he got sick with the pneumonia and was hospitalized during his previous hospitalization. I am going to consult physical therapy and occupational therapy to see what they can do. Again speech therapy will be consulted as well. (3) Dysphagia Is this a current diagnosis for this admission?: Yes Plan: I will consult speech therapy. (4) Ambulatory dysfunction Is this a current diagnosis for this admission?: Yes Plan: I am going to get physical therapy and occupational therapy to see the patient. The patient can no longer ambulate. He has good muscle tone but poor coordination and truncal instability. The patient's family picks him up and puts him in a wheelchair every day. (5) Hyperglycemia Is this a current diagnosis for this admission?: Yes Plan: Of undetermined significance. He will have a chemistry panel drawn in the morning. (6) Do not resuscitate Is this a current diagnosis for this admission?: Yes Plan: I did confirm this with the patient. He does not want to be intubated and he does not want his care escalated to the ICU. He does not want pressors or chest compressions. He does want aggressive treatment otherwise for now. - Time Time Spent: 50 to 70 Minutes - Inpatient Certification Medical Necessity: Need for IV Antibiotics - The patient will be fully admitted to the hospital. I expect his hospitalization will span greater than 2 midnights. He needs evaluation by the therapist. He needs treatment for his aspiration pneumonitis. Timing of disposition will be determined by his clinical course, Other
[2018-01-10] MEDS: TEMAZEPAM 15 MG CAPSULE PO SCH (21:21)
[2018-01-10] MEDS: HYDROCODONE/ACETAMINOPHEN 7.5-325 MG TABLET PO PRN (21:21)
[2018-01-10] MEDS: EZETIMIBE 10 MG TABLET PO SCH (21:21)
[2018-01-10] MEDS: QUETIAPINE FUMARATE 25 MG TABLET PO SCH (21:21)
[2018-01-10] MEDS: BACLOFEN 10 MG TABLET PO SCH (21:26)
[2018-01-10] MEDS ORDERED: (PENDING PHARMACY ID) (Temazepam [Restoril] 30 MG) PO SCH (22:00)
[2018-01-11] MEDS: IPRATROPIUM/ALBUTEROL 0.5-2.5 MG/3 ML AMPUL NEB SCH ×5 (03:42→20:53)
[2018-01-11 05:29] LABS: ABSOLUTE BASOPHILS # (AUTO) 0.1 10^3/uL (0.0-0.2); ABSOLUTE EOSINOPHILS # (AUTO) 0.2 10^3/uL (0.0-0.6); ABSOLUTE LYMPHOCYTES (AUTO) 1.7 10^3/uL (0.5-4.7); ABSOLUTE MONOCYTES (AUTO) 1.1 10^3/uL (0.1-1.4); ABSOLUTE NEUT (AUTO) 3.9 10^3/uL (1.7-8.2); BASOPHILS % (AUTO) 0.8 % (0-2); EOSINOPHILS % (AUTO) 2.2 % (0-6); LYMPHOCYTES % (AUTO) 24.2 % (13-45); MEAN CORPUSCULAR HEMOGLOBIN 32.7 pg (27.0-33.4); MEAN CORPUSCULAR HGB CONC 33.9 g/dL (32.0-36.0); MEAN CORPUSCULAR VOLUME 96 fl (80-97); PLATELET COUNT 222 10^3/uL (150-450); RED BLOOD COUNT 4.36 10^6/uL (4.35-5.55); RED CELL DISTRIBUTION WIDTH 14.1 % (11.5-14.0); SEGMENTED NEUTROPHILS % (AUTO) 56.8 % (42-78); TOTAL CELLS COUNTED % (AUTO) 100 %; WHITE BLOOD COUNT 6.9 10^3/uL (4.0-10.5)
[2018-01-11 05:42] LABS: ALANINE AMINOTRANSFERASE 30 U/L (21-72); ALBUMIN 3.3 g/dL (3.5-5.0); ALKALINE PHOSPHATASE 55 U/L (38-126); ANION GAP 8 (5-19); ASPARTATE AMINO TRANSFERASE 23 U/L (17-59); BILIRUBIN,DIRECT 0.3 mg/dL (0.0-0.4); BILIRUBIN,TOTAL 1.1 mg/dL (0.2-1.3); BLOOD UREA NITROGEN 17 mg/dL (7-20); CARBON DIOXIDE 27 mmol/L (22-30); CHLORIDE 109 mmol/L (98-107); GLUCOSE 88 mg/dL (75-110); PHOSPHORUS 4.2 mg/dL (2.5-4.5); SODIUM 144.2 mmol/L (137-145); TOTAL PROTEIN 5.7 g/dL (6.3-8.2)
[2018-01-11 05:45] LABS: HEMOGLOBIN 14.2 g/dL (13.5-17.0)
[2018-01-11] MEDS: BACLOFEN 10 MG TABLET PO SCH ×3 (05:48→20:51)
[2018-01-11] MEDS: PIPERACILLIN SODIUM/TAZOBACTAM 3.375 GM in NORMAL SALINE 100 ML IV SCH ×3 (06:05→17:44)
[2018-01-11] MEDS: LANSOPRAZOLE 30 MG TAB.RAP.DR PO SCH (06:06)
[2018-01-11] MEDS: HYDROCODONE/ACETAMINOPHEN 7.5-325 MG TABLET PO PRN ×2 (08:22→17:58)
[2018-01-11] MEDS: MAG HYDROX/AL HYDROX/SIMETH SUSP 30 ML UDCUP PO PRN ×2 (08:39→18:02)
[2018-01-11] MEDS: AMLODIPINE BESYLATE 10 MG TABLET PO SCH (09:12)
[2018-01-11] MEDS: CITALOPRAM HYDROBROMIDE 20 MG TABLET PO SCH (09:13)
[2018-01-11] MEDS: ENOXAPARIN SODIUM INJ 40 MG/0.4 ML DISP.SYRIN SUBCUT SCH (09:13)
[2018-01-11] MEDS: DOCUSATE SODIUM 100 MG CAPSULE PO SCH (09:13)
[2018-01-11] MEDS: RAMIPRIL 10 MG CAPSULE PO SCH (09:14)
[2018-01-11 10:56] LABS: ARTERIAL BLOOD BASE EXCESS 0.6 mmol/L; ARTERIAL BLOOD H2CO3 1.19 mmol/L (1.05-1.35); ARTERIAL BLOOD O2 SATURATION 95.3 % (94-98); ARTERIAL BLOOD PCO2 39.7 mmHg (35-45); ARTERIAL BLOOD PH 7.42 (7.35-7.45); ARTERIAL BLOOD PO2 74.9 mmHg (80-100); ARTERIAL BLOOD TOTAL CO2 26.2 mmol/L (23-27)
[2018-01-11 10:57] LABS: ARTERIAL BLOOD FIO2 21%
[2018-01-11] MEDS: NORMAL SALINE 1000 ML 1,000 ML IV PRN (13:10)
--- NOTE | 2018-01-11 13:23 | RADIOLOGY REPORT (SQ) ---
EXAM DESCRIPTION: DIMAS SWALLOW COMPLETED DATE/TIME: 01/11/2018 10:14 am REASON FOR STUDY: difficulty swallowing COMPARISON: None. TECHNIQUE: Videofluoroscopic swallowing examination was performed in conjunction with speech patholo gy. Videofluoroscopic imaging was obtained and reviewed and these are the findings: RADIATION DOSE: 1 minutes 56 seconds of fluoroscopy was used. 1 images saved to PACS. LIMITATIONS: None FINDINGS: The patient was brought into the fluoro room and placed upright on a modified barium swall ow chair. The patient was then given multiple consistencies mixed with barium to swallow under live fluoroscopic video guidance. According to the Speech Pathologist there was suggestion of aspiration with thin liquids. Contrast was not seen entering the trachea although the patient did have a coughi ng fit. IMPRESSION: SUSPECT TRACHEAL ASPIRATION WITH THIN LIQUIDS.PLEASE SEE SPEECH PATHOLOGIST REPORT FOR O THER FINDINGS AND RECOMMENDATIONS. COMMENT: Quality ID [id number]: Final reports for procedures using fluoroscopy that document radiation exp osure indices, or exposure time and number of fluorographic images (if radiation exposure indices are not available) TECHNICAL DOCUMENTATION: JOB ID: [id number] [employer]- All Rights Reserved Reading location - IP/workstation name: [email or web address]
--- NOTE | 2018-01-11 15:12 | PDOC CONSULTATION ---
Consultation Consult Date: 01/10/18 Attending physician:: DEBORAH GARCIA Consult reason:: dypsnea History of Present Illness Admission Date/PCP: 01/10/18 13:12 SADIQ ARMSTRONG MD History of Present Illness: SURYA ALEXIS is a 72 year old male,, admitted for acute onset of shortness of breath patient status post discharge 2 weeks ago for hospitalization resulting in aspiration pneumonitis. 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 History is difficult as the patient cannot speak. He has made it known to his family that no way should perform only like to have a feeding tube. Past Medical History Cardiac Medical History: Reports: Hypertension Pulmonary Medical History: Reports: Pneumonia - Aspiration Denies: Asthma, Chronic Obstructive Pulmonary Disease (COPD) Psychiatric Medical History: Reports: Depression Past Surgical History Past Surgical History: Reports: Coronary Artery Bypass Graft, Other Social History Information Source: [facility] Records Lives with: Family Smoking Status: Never Smoker Frequency of Alcohol Use: None Hx Recreational Drug Use: No Drugs: None Hx Prescription Drug Abuse: No - Advance Directive Resuscitation Status: Do Not Resuscitate Family History Parental Family History Reviewed: No Children Family History Reviewed: No Sibling(s) Family History Reviewed.: No Medication/Allergy Home Medications: Amlodipine Besylate [Norvasc 10 mg Tablet] 10 mg PO DAILY 01/10/18 Aspirin [Ecotrin 81 mg EC Tablet] 81 mg PO DAILY 01/10/18 Baclofen [Baclofen 10 mg Tablet] 5 mg PO Q8 01/10/18 Carboxymethylcellulos/Glycerin [Refresh Optive Gel Eye Drops] 1 drop OU BID 12/23 Citalopram Hydrobromide [Citalopram HBr] 20 mg PO DAILY 01/10/18 Ezetimibe [Zetia 10 mg Tablet] 10 mg PO QHS 01/10/18 Famotidine [Pepcid 20 mg Tablet] 20 mg PO BID 01/10/18 Hydrocodone/Acetaminophen [Hydrocodone-Acetamin 7.5-325] 1 tab PO Q8HP PRN 01/10 Ipratropium/Albuterol Sulfate [Iprat-Albut 0.5-3(2.5) mg/3 ml] 3 ml NEB Q8HP PRN 01/10/18 Mineral Oil/Petrolatum,White [Refresh P.m. Ointment] 1 applic OU QHS 01/10/18 Polyethylene Glycol 3350 [Miralax Powder 17 gm/Packet] 17 gm PO DAILY 01/10/18 Prednisolone Acetate [Pred Forte] 1 drop OD DAILY 01/10/18 Quetiapine Fumarate [Seroquel 25 mg Tablet] 25 mg PO QHS 01/10/18 Ramipril [Altace 10 mg Capsule] 10 mg PO DAILY 01/10/18 Ramipril [Altace 2.5 mg Capsule] 2.5 mg PO DAILY 01/10/18 Temazepam [Restoril] 30 mg PO QHS 01/10/18 Multivitamin [Multiple Vitamins] 1 each PO DAILY 01/11/18 Allergies/Adverse Reactions: erythromycin base [From Staticin] Allergy (Verified 01/10/18 10:18) ethyl alcohol [From Staticin] Allergy (Verified 01/10/18 10:18) oxycodone [From Percocet] Allergy (Verified 01/10/18 10:18) Gcintnq-Qap-Imr Reductase Inhibitor Allergy (Verified 01/10/18 10:18) Sulfa (Sulfonamide Antibiotics) Allergy (Verified 01/10/18 10:18) Review of Systems ROS unobtainable: Due to mental status Physical Exam Vital Signs: Temp Pulse Resp BP Pulse Ox 97.8 F 89 28 H 152/73 H 97 01/10/18 14:41 01/10/18 14:41 01/10/18 14:41 01/10/18 14:41 01/10/18 14:41 Intake & Output 01/09/18 01/10/18 01/11/18 06:59 06:59 06:59 Weight 92.2 kg General appearance: PRESENT: no acute distress, disheveled, obese Head exam: PRESENT: atraumatic, normocephalic Eye exam: PRESENT: conjunctiva pale, EOMI. ABSENT: nystagmus, periorbital swelling, scleral icterus Mouth exam: PRESENT: dry mucosa, neck supple, tongue midline Neck exam: ABSENT: carotid bruit, JVD, lymphadenopathy, thyromegaly, tracheal deviation, tracheostomy Respiratory exam: PRESENT: decreased breath sounds, prolonged expiratory phas, rales, rhonchi, unlabored, wheezes. ABSENT: retraction, stridor Cardiovascular exam: PRESENT: RRR, +S1, +S2 Pulses: PRESENT: normal radial pulses GI/Abdominal exam: PRESENT: normal bowel sounds, soft Extremities exam: ABSENT: calf tenderness, clubbing Musculoskeletal exam: ABSENT: deformity, dislocation Neurological exam: PRESENT: awake, oriented to person, oriented to place Skin exam: PRESENT: dry, warm Results Impressions: Chest/Abdomen CTA 01/10/18 00:00 IMPRESSION: NORMAL CTA OF THE CHEST. NO PULMONARY EMBOLI. Chest X-Ray 01/10/18 10:19 IMPRESSION: NO ACUTE RADIOGRAPHIC FINDING IN THE CHEST. Assessment & Plan - Diagnosis (1) Aspiration pneumonitis Is this a current diagnosis for this admission?: Yes Plan: Aspiration demonstrated on modified barium swallow (2) Progressive supranuclear palsy Is this a current diagnosis for this admission?: Yes Plan: He stated currently patient does not want feeding to essentially will have an overwhelming aspiration pneumonitis which cannot be cured.
--- NOTE | 2018-01-11 15:14 | PDOC PROGRESS REPORT ---
Subjective Progress Note for:: 01/11/18 Subjective:: Unchanged Reason For Visit: PNEUMONIA Physical Exam Vital Signs: Temp Pulse Resp BP Pulse Ox 98.4 F 94 22 H 150/98 H 100 01/11/18 08:00 01/11/18 08:00 01/11/18 08:00 01/11/18 08:00 01/11/18 08:00 Intake & Output 01/10/18 01/11/18 01/12/18 06:59 06:59 06:59 Intake Total 40 1198 Balance 40 1198 Weight 92.3 kg General appearance: PRESENT: no acute distress, disheveled Head exam: PRESENT: atraumatic, normocephalic Eye exam: PRESENT: conjunctiva pale, EOMI. ABSENT: nystagmus, periorbital swelling, scleral icterus Mouth exam: PRESENT: dry mucosa, neck supple, tongue midline Neck exam: ABSENT: carotid bruit, JVD, lymphadenopathy, thyromegaly, tracheal deviation, tracheostomy Respiratory exam: PRESENT: decreased breath sounds, prolonged expiratory phas, rales, rhonchi, unlabored. ABSENT: retraction, stridor Cardiovascular exam: PRESENT: RRR, +S1, +S2 Pulses: PRESENT: normal radial pulses GI/Abdominal exam: PRESENT: normal bowel sounds, soft Extremities exam: ABSENT: calf tenderness, clubbing Musculoskeletal exam: ABSENT: deformity, dislocation Neurological exam: PRESENT: awake, oriented to person Skin exam: PRESENT: dry, warm Results Laboratory Results: 01/11/18 04:56 01/11/18 04:56 01/11/18 01/11/18 04:56 04:56 WBC 6.9 RBC 4.36 Hgb 14.2 D Hct 42.0 MCV 96 MCH 32.7 MCHC 33.9 RDW 14.1 H Plt Count 222 Seg Neutrophils % 56.8 Lymphocytes % 24.2 Monocytes % 16.0 H Eosinophils % 2.2 Basophils % 0.8 Absolute Neutrophils 3.9 Absolute Lymphocytes 1.7 Absolute Monocytes 1.1 Absolute Eosinophils 0.2 Absolute Basophils 0.1 Sodium 144.2 Potassium 4.0 Chloride 109 H Carbon Dioxide 27 Anion Gap 8 BUN 17 Creatinine 0.74 Est GFR ( Amer) > 60 Est GFR (Non-Af Amer) > 60 Glucose 88 Calcium 9.0 Phosphorus 4.2 Magnesium 2.5 H Total Bilirubin 1.1 AST 23 ALT 30 Alkaline Phosphatase 55 Total Protein 5.7 L Albumin 3.3 L 01/11/18 04:56 NT-Pro-B Natriuret Pep 116 Impressions: Chest/Abdomen CTA 01/10/18 00:00 IMPRESSION: NORMAL CTA OF THE CHEST. NO PULMONARY EMBOLI. Chest X-Ray 01/10/18 10:19 IMPRESSION: NO ACUTE RADIOGRAPHIC FINDING IN THE CHEST. Assessment & Plan - Diagnosis (1) Aspiration pneumonitis Is this a current diagnosis for this admission?: Yes Plan: Aspiration demonstrated on modified barium swallow (2) Progressive supranuclear palsy Is this a current diagnosis for this admission?: Yes Plan: He stated currently patient does not want feeding to essentially will have an overwhelming aspiration pneumonitis which cannot be cured.
[2018-01-11] MEDS ORDERED: HYDROCODONE BIT/HOMATROPINE SYRUP 5 ML UDCUP PO PRN (15:31)
--- NOTE | 2018-01-11 15:47 | PDOC PROGRESS REPORT ---
Subjective Progress Note for:: 01/11/18 Subjective:: The patient is resting in his bed with his family at the bedside. He states he is having pain in his lower abdomen when he coughs. He continues to have a cough. He states he feels bad. His speech is quite limited so a good review of systems cannot be obtained. Reason For Visit: PNEUMONIA Physical Exam Vital Signs: Temp Pulse Resp BP Pulse Ox 98.4 F 94 22 H 128/71 H 96 01/11/18 11:51 01/11/18 11:51 01/11/18 11:51 01/11/18 11:51 01/11/18 11:51 Intake & Output 01/10/18 01/11/18 01/12/18 06:59 06:59 06:59 Intake Total 40 1198 Balance 40 1198 Weight 92.3 kg General appearance: PRESENT: no acute distress - This is, other - Quite ill- appearing. He is frequently coughing and holding his abdomen. He does look much improved since yesterday however Head exam: PRESENT: atraumatic, normocephalic Mouth exam: PRESENT: moist, tongue midline Respiratory exam: PRESENT: other - It is difficult to listen to his lungs as he moans with every breath. Cardiovascular exam: PRESENT: RRR. ABSENT: diastolic murmur, rubs, systolic murmur GI/Abdominal exam: PRESENT: normal bowel sounds, soft, tenderness - Across the suprapubic area. ABSENT: distended, guarding, mass, organolmegaly, rebound Rectal exam: PRESENT: deferred Neurological exam: PRESENT: alert, awake, oriented to person, oriented to place , oriented to time, oriented to situation, CN II-XII grossly intact, other - He has speech difficulties. ABSENT: motor sensory deficit Psychiatric exam: PRESENT: appropriate affect, normal mood. ABSENT: homicidal ideation, suicidal ideation Skin exam: PRESENT: dry, intact, warm. ABSENT: cyanosis, rash Results Laboratory Results: 01/11/18 04:56 01/11/18 04:56 01/11/18 01/11/18 01/11/18 04:56 04:56 10:39 WBC 6.9 RBC 4.36 Hgb 14.2 D Hct 42.0 MCV 96 MCH 32.7 MCHC 33.9 RDW 14.1 H Plt Count 222 Seg Neutrophils % 56.8 Lymphocytes % 24.2 Monocytes % 16.0 H Eosinophils % 2.2 Basophils % 0.8 Absolute Neutrophils 3.9 Absolute Lymphocytes 1.7 Absolute Monocytes 1.1 Absolute Eosinophils 0.2 Absolute Basophils 0.1 Carbonic Acid 1.19 HCO3/H2CO3 Ratio 21:1 ABG pH 7.42 ABG pCO2 39.7 ABG pO2 74.9 L ABG HCO3 25.0 ABG O2 Saturation 95.3 ABG Base Excess 0.6 FiO2 21% Sodium 144.2 Potassium 4.0 Chloride 109 H Carbon Dioxide 27 Anion Gap 8 BUN 17 Creatinine 0.74 Est GFR ( Amer) > 60 Est GFR (Non-Af Amer) > 60 Glucose 88 Calcium 9.0 Phosphorus 4.2 Magnesium 2.5 H Total Bilirubin 1.1 AST 23 ALT 30 Alkaline Phosphatase 55 Total Protein 5.7 L Albumin 3.3 L 01/11/18 04:56 NT-Pro-B Natriuret Pep 116 Impressions: Chest/Abdomen CTA 01/10/18 00:00 IMPRESSION: NORMAL CTA OF THE CHEST. NO PULMONARY EMBOLI. Chest X-Ray 01/10/18 10:19 IMPRESSION: NO ACUTE RADIOGRAPHIC FINDING IN THE CHEST. Modified Barium Swallow 01/11/18 07:00 IMPRESSION: SUSPECT TRACHEAL ASPIRATION WITH THIN LIQUIDS.PLEASE SEE SPEECH PATHOLOGIST REPORT FOR OTHER FINDINGS AND RECOMMENDATIONS. Assessment & Plan - Diagnosis (1) Aspiration pneumonitis Is this a current diagnosis for this admission?: Yes Plan: For now he will continue IV Zosyn. This is day #2 of treatment. Certainly his white blood cell count is normalized and he looks much better. He still has a significant cough. Going to give him some Hycodan cough syrup to quiet it. I will also place him on Mucinex. He did have a video swallow today that revealed aspiration. We will await recommendations from the speech therapist. (2) Progressive supranuclear palsy Is this a current diagnosis for this admission?: Yes Plan: The patient was evaluated by physical therapy and occupational therapy today. He actually was able to ambulate a short distance with lots of assistance. We will await recommendations from physical therapy but per the family they would like home health services set up at discharge. (3) Dysphagia Is this a current diagnosis for this admission?: Yes Plan: A video swallow revealed aspiration. We will await recommendations from speech therapy. (4) Ambulatory dysfunction Is this a current diagnosis for this admission?: Yes Plan: The patient is actually doing fairly well with physical therapy. We will set up home health at discharge. (5) Hyperglycemia Is this a current diagnosis for this admission?: Yes Plan: Resolved. Likely reactive (6) Do not resuscitate Is this a current diagnosis for this admission?: Yes - Time Time Spent with patient: 15-24 minutes - Inpatient Certification Medical Necessity: Need for IV Antibiotics, Other - Inpatient hospitalization remains necessary. I am going to continue parenteral antibiotics for a few days as he was just discharged last week and readmitted. We will continue to work with the therapist and look forward to speech therapy's recommendations.
[2018-01-11] MEDS: IPRATROPIUM 0.03% NASL SCH (17:43)
--- NOTE | 2018-01-11 17:51 | ST Inp Modified Barium Swallow ---
Medical Diagnosis - Medical Diagnoses Medical Diagnosis Description & ICD-10 Code(s): aspiration pneumonia ST Inpatient [facility] [place] - General Date: 01/11/18 - History History Obtained From: Other - EMR -: Medical - prior medical history of aspiration pneumonia, progressive supraneuclear palsy. baseline diet mechanical soft and thin liquids Medications: Medications Reviewed Allergies: No known allergies - Subjective Current Nutritional Means: PO Current PO Diet: Soft - with thin liquids Current Symptoms: Hx of asp. pneumonia Pain: Patient reports, 0/5 - Objective Assessment: Upright, Left Lateral - Food Trials Food Trials Used: Thin liquids, Pureed, Regular The Patient: Was Able to Self Feed - Assessment Labial Function: Within Normal Limits Lingual Function: Impaired - mild - Pharyngeal Stage Initiation of Pharyngeal Stage: Normal Decreased Laryngeal Elevation: No Reduced Pressure Generation: No Reduced Tongue Base Retraction: No Pre-Swallowing Pooling in Valleculae: Mild - with liquids only Pre-Swallowing Pooling in Pyriforms: None Reduced Thyro-Hyiod Approximation: No Reduced Epiglottic Excursion: No Reduced Pharyngeal Peristalsis: No Multiple Swallows With: Cleared w/ Dry Swallow Post Swallow Residuals in Valleculae: None Post Swallow Residuals in Pyriforms: None - Impression/Summary Laryngeal Penetration: Yes, Cough, after swallow - seen only with subsequent sips of thin liquid, possible aspiration, not definitive Patient Presents With: Pharyngeal stage dysph., Mild-Moderate Risk of Aspiration: Mild - Recommendations Solid Diet Recommendations: Mechanical Soft Liquid Diet Recommendations: Thin Strict Aspitarion Precautions: Yes Dysphagia Therapy with BROKER ASSISTANT: No Recommended Techniques: Fully Upright During Meal, Small Bites and Sips - single cup sips for liquids - Time Total Time: 20 Total Timed Minutes: 20
[2018-01-11] MEDS: GUAIFENESIN 600 MG TABLET.SA PO SCH (22:18)
[2018-01-11] MEDS: QUETIAPINE FUMARATE 25 MG TABLET PO SCH (22:19)
[2018-01-11] MEDS: EZETIMIBE 10 MG TABLET PO SCH (22:19)
[2018-01-11] MEDS: TEMAZEPAM 15 MG CAPSULE PO SCH (22:19)
[2018-01-12] MEDS: PIPERACILLIN SODIUM/TAZOBACTAM 3.375 GM in NORMAL SALINE 100 ML IV SCH ×4 (00:09→17:48)
[2018-01-12] MEDS: IPRATROPIUM/ALBUTEROL 0.5-2.5 MG/3 ML AMPUL NEB SCH ×7 (00:24→23:42)
[2018-01-12] MEDS: LANSOPRAZOLE 30 MG TAB.RAP.DR PO SCH (05:23)
[2018-01-12] MEDS: BACLOFEN 10 MG TABLET PO SCH ×3 (05:23→22:31)
[2018-01-12 05:27] LABS: ABSOLUTE EOSINOPHILS # (AUTO) 0.2 10^3/uL (0.0-0.6); ABSOLUTE LYMPHOCYTES (AUTO) 1.6 10^3/uL (0.5-4.7); ABSOLUTE MONOCYTES (AUTO) 0.9 10^3/uL (0.1-1.4); BASOPHILS % (AUTO) 0.8 % (0-2); EOSINOPHILS % (AUTO) 3.7 % (0-6); HEMATOCRIT 40.9 % (37.9-51.0); HEMOGLOBIN 13.8 g/dL (13.5-17.0); LYMPHOCYTES % (AUTO) 27.8 % (13-45); MEAN CORPUSCULAR HEMOGLOBIN 32.3 pg (27.0-33.4); MEAN CORPUSCULAR HGB CONC 33.6 g/dL (32.0-36.0); MEAN CORPUSCULAR VOLUME 96 fl (80-97); MONOCYTES % (AUTO) 15.6 % (3-13); PLATELET COUNT 206 10^3/uL (150-450); RED BLOOD COUNT 4.26 10^6/uL (4.35-5.55); SEGMENTED NEUTROPHILS % (AUTO) 52.1 % (42-78); TOTAL CELLS COUNTED % (AUTO) 100 %; WHITE BLOOD COUNT 5.8 10^3/uL (4.0-10.5)
[2018-01-12 05:57] LABS: ALANINE AMINOTRANSFERASE 25 U/L (21-72); ALBUMIN 3.2 g/dL (3.5-5.0); ALKALINE PHOSPHATASE 56 U/L (38-126); ANION GAP 9 (5-19); ASPARTATE AMINO TRANSFERASE 21 U/L (17-59); BILIRUBIN,DIRECT 0.3 mg/dL (0.0-0.4); BILIRUBIN,TOTAL 0.8 mg/dL (0.2-1.3); BLOOD UREA NITROGEN 14 mg/dL (7-20); CALCIUM 8.6 mg/dL (8.4-10.2); CARBON DIOXIDE 27 mmol/L (22-30); CHLORIDE 110 mmol/L (98-107); GLUCOSE 81 mg/dL (75-110); PHOSPHORUS 3.7 mg/dL (2.5-4.5); POTASSIUM 3.9 mmol/L (3.6-5.0); SODIUM 145.6 mmol/L (137-145); TOTAL PROTEIN 5.5 g/dL (6.3-8.2)
[2018-01-12] MEDS: HYDROCODONE/ACETAMINOPHEN 7.5-325 MG TABLET PO PRN ×2 (09:30→22:42)
[2018-01-12] MEDS: ENOXAPARIN SODIUM INJ 40 MG/0.4 ML DISP.SYRIN SUBCUT SCH (09:30)
[2018-01-12] MEDS: IPRATROPIUM 0.03% NASL SCH ×2 (09:30→17:48)
--- NOTE | 2018-01-12 11:22 | RADIOLOGY REPORT (SQ) ---
EXAM DESCRIPTION: U/S ABDOMEN COMPLETE W/O DOP COMPLETED DATE/TIME: 01/12/2018 11:05 am REASON FOR STUDY: abdominal pain. Hx of kidney stones, suprapubic pa COMPARISON: None TECHNIQUE: Dynamic and static grayscale images acquired of the abdomen and recorded on PACS. Graceo nal selected color Doppler and spectral images recorded. LIMITATIONS: Study limited due to acoustical interference from fat or from air in the bowel. FINDINGS: PANCREAS: Obscured. LIVER: Partially obscured. No masses. No dilated ducts. LIVER VASCULATURE: Normal directional flow of the main portal vein and hepatic veins. GALLBLADDER: No stones. Normal wall thickness. No pericholecystic fluid. ULTRASOUND-DETECTED BENTLEY'S SIGN: Negative. INTRAHEPATIC DUCTS AND COMMON DUCT:CBD obscured. Intrahepatic ducts normal caliber. No filling defec ts. INFERIOR VENA CAVA: Obscured. AORTA: Partially obscured. RIGHT KIDNEY: Normal size. Normal echogenicity. No solid or suspicious masses. No hydronephrosis. No calcifications. LEFT KIDNEY: Normal size. Normal echogenicity. No solid or suspicious masses. No hydronephrosis. No calcifications. SPLEEN:Normal size. No solid masses. PERITONEAL AND PLEURAL SPACES: No ascites or effusions. OTHER: No other significant finding. IMPRESSION: NO SIGNIFICANT FINDING IN THE VISUALIZED ABDOMEN. TECHNICAL DOCUMENTATION: JOB ID: [id number] [employer]- All Rights Reserved Reading location - IP/workstation name: [facility]
--- NOTE | 2018-01-12 12:20 | PDOC PROGRESS REPORT ---
Subjective Progress Note for:: 01/12/18 Subjective:: The patient is resting in his bed. He continues to do quite well. Speech therapy has not made any changes to his diet. I discussed the plan of care with family at the bedside. I am tentatively thinking about discharging the patient home tomorrow and they are in agreement with this plan. We are going to give him 1 more day of broad-spectrum IV antibiotics here in the hospital. The patient himself it is difficult to understand. He is able to tell me that he still has some abdominal pain. I did give the patient the results of his abdominal ultrasound which was normal. I believe he just has musculoskeletal pain from the frequent coughing and I have told him this. He was bladder scanned yesterday he did not have any significant residual urine. Reason For Visit: PNEUMONIA Physical Exam Vital Signs: Temp Pulse Resp BP Pulse Ox 98.7 F 88 18 134/75 H 95 01/12/18 08:00 01/12/18 11:44 01/12/18 11:44 01/12/18 08:00 01/12/18 11:44 Intake & Output 01/11/18 01/12/18 01/13/18 06:59 06:59 06:59 Intake Total 40 2982 Output Total 550 Balance 40 2432 Weight 92.3 kg 93.2 kg General appearance: PRESENT: no acute distress, well-developed, well-nourished, other - Chronically ill-appearing. Head exam: PRESENT: atraumatic, normocephalic Mouth exam: PRESENT: moist, tongue midline Neck exam: ABSENT: carotid bruit, JVD, lymphadenopathy, thyromegaly Respiratory exam: PRESENT: clear to auscultation feliz. ABSENT: rales, rhonchi, wheezes Cardiovascular exam: PRESENT: RRR. ABSENT: diastolic murmur, rubs, systolic murmur GI/Abdominal exam: PRESENT: normal bowel sounds, soft. ABSENT: distended, guarding, mass, organolmegaly, rebound, tenderness Rectal exam: PRESENT: deferred Extremities exam: PRESENT: full ROM. ABSENT: calf tenderness, clubbing, pedal edema Neurological exam: PRESENT: alert, altered, awake, oriented to person, oriented to place, oriented to time, oriented to situation, abnormal gait, ataxia - He has significant speech issues and coordination issues as well. Good muscle strength however, other Psychiatric exam: PRESENT: appropriate affect, normal mood. ABSENT: homicidal ideation, suicidal ideation Skin exam: PRESENT: dry, intact, warm. ABSENT: cyanosis, rash Results Laboratory Results: 01/12/18 04:54 01/12/18 04:54 01/12/18 01/12/18 04:54 04:54 WBC 5.8 RBC 4.26 L Hgb 13.8 Hct 40.9 MCV 96 MCH 32.3 MCHC 33.6 RDW 14.0 Plt Count 206 Seg Neutrophils % 52.1 Lymphocytes % 27.8 Monocytes % 15.6 H Eosinophils % 3.7 Basophils % 0.8 Absolute Neutrophils 3.0 Absolute Lymphocytes 1.6 Absolute Monocytes 0.9 Absolute Eosinophils 0.2 Absolute Basophils 0.0 Sodium 145.6 H Potassium 3.9 Chloride 110 H Carbon Dioxide 27 Anion Gap 9 BUN 14 Creatinine 0.72 Est GFR ( Amer) > 60 Est GFR (Non-Af Amer) > 60 Glucose 81 Calcium 8.6 Phosphorus 3.7 Magnesium 2.6 H Total Bilirubin 0.8 AST 21 ALT 25 Alkaline Phosphatase 56 Total Protein 5.5 L Albumin 3.2 L 01/11/18 04:56 NT-Pro-B Natriuret Pep 116 Impressions: Chest/Abdomen CTA 01/10/18 00:00 IMPRESSION: NORMAL CTA OF THE CHEST. NO PULMONARY EMBOLI. Chest X-Ray 01/10/18 10:19 IMPRESSION: NO ACUTE RADIOGRAPHIC FINDING IN THE CHEST. Modified Barium Swallow 01/11/18 07:00 IMPRESSION: SUSPECT TRACHEAL ASPIRATION WITH THIN LIQUIDS.PLEASE SEE SPEECH PATHOLOGIST REPORT FOR OTHER FINDINGS AND RECOMMENDATIONS. Abdomen Ultrasound 01/12/18 00:00 IMPRESSION: NO SIGNIFICANT FINDING IN THE VISUALIZED ABDOMEN. Assessment & Plan - Diagnosis (1) Aspiration pneumonitis Is this a current diagnosis for this admission?: Yes Plan: For now he will continue IV Zosyn. This is day #3 of treatment. Certainly his white blood cell count has normalized and he looks much better. He still has a significant cough. He did have a video swallow yesterday that revealed aspiration. Speech therapy does not recommend modifying his diet. (2) Progressive supranuclear palsy Is this a current diagnosis for this admission?: Yes Plan: The patient was evaluated by physical therapy and occupational therapy today. He actually was able to ambulate a short distance with lots of assistance. The patient will be discharged with home health services (3) Dysphagia Is this a current diagnosis for this admission?: Yes Plan: A video swallow revealed aspiration. No changes to his diet (4) Ambulatory dysfunction Is this a current diagnosis for this admission?: Yes Plan: The patient is actually doing fairly well with physical therapy. We will set up home health at discharge. (5) Hyperglycemia Is this a current diagnosis for this admission?: Yes (6) Do not resuscitate Is this a current diagnosis for this admission?: Yes - Time Time Spent with patient: 25-34 minutes - Inpatient Certification Medical Necessity: Need for IV Antibiotics - Inpatient hospitalization is necessary for iv ABX. Hopefully home tomorrow.
[2018-01-12] MEDS: RAMIPRIL 10 MG CAPSULE PO SCH (13:54)
[2018-01-12] MEDS: AMLODIPINE BESYLATE 10 MG TABLET PO SCH (13:55)
[2018-01-12] MEDS: DOCUSATE SODIUM 100 MG CAPSULE PO SCH (13:55)
[2018-01-12] MEDS: GUAIFENESIN 600 MG TABLET.SA PO SCH ×2 (13:55→22:38)
[2018-01-12] MEDS: CITALOPRAM HYDROBROMIDE 20 MG TABLET PO SCH (13:56)
[2018-01-12] MEDS: HYDROCODONE BIT/HOMATROPINE 5-1.5 MG TABLET PO PRN ×2 (16:23→22:46)
[2018-01-12] MEDS: TEMAZEPAM 15 MG CAPSULE PO SCH (22:38)
[2018-01-12] MEDS: QUETIAPINE FUMARATE 25 MG TABLET PO SCH (22:38)
[2018-01-12] MEDS: EZETIMIBE 10 MG TABLET PO SCH (22:39)
[2018-01-13] MEDS: PIPERACILLIN SODIUM/TAZOBACTAM 3.375 GM in NORMAL SALINE 100 ML IV SCH ×3 (00:22→12:00)
[2018-01-13] MEDS: IPRATROPIUM/ALBUTEROL 0.5-2.5 MG/3 ML AMPUL NEB SCH ×3 (04:00→11:39)
[2018-01-13 05:25] LABS: ABSOLUTE EOSINOPHILS # (AUTO) 0.2 10^3/uL (0.0-0.6); ABSOLUTE LYMPHOCYTES (AUTO) 1.7 10^3/uL (0.5-4.7); ABSOLUTE NEUT (AUTO) 3.7 10^3/uL (1.7-8.2); BASOPHILS % (AUTO) 0.6 % (0-2); EOSINOPHILS % (AUTO) 2.8 % (0-6); HEMATOCRIT 41.5 % (37.9-51.0); HEMOGLOBIN 14.3 g/dL (13.5-17.0); LYMPHOCYTES % (AUTO) 25.4 % (13-45); MEAN CORPUSCULAR HEMOGLOBIN 32.8 pg (27.0-33.4); MEAN CORPUSCULAR HGB CONC 34.4 g/dL (32.0-36.0); MEAN CORPUSCULAR VOLUME 95 fl (80-97); MONOCYTES % (AUTO) 14.9 % (3-13); PLATELET COUNT 213 10^3/uL (150-450); RED BLOOD COUNT 4.35 10^6/uL (4.35-5.55); RED CELL DISTRIBUTION WIDTH 13.7 % (11.5-14.0); SEGMENTED NEUTROPHILS % (AUTO) 56.3 % (42-78); TOTAL CELLS COUNTED % (AUTO) 100 %; WHITE BLOOD COUNT 6.7 10^3/uL (4.0-10.5)
[2018-01-13 05:57] LABS: ALANINE AMINOTRANSFERASE 21 U/L (21-72); ALBUMIN 3.3 g/dL (3.5-5.0); ALKALINE PHOSPHATASE 58 U/L (38-126); ANION GAP 11 (5-19); ASPARTATE AMINO TRANSFERASE 23 U/L (17-59); BILIRUBIN,DIRECT 0.3 mg/dL (0.0-0.4); BILIRUBIN,TOTAL 0.7 mg/dL (0.2-1.3); BLOOD UREA NITROGEN 9 mg/dL (7-20); CALCIUM 8.9 mg/dL (8.4-10.2); CARBON DIOXIDE 24 mmol/L (22-30); CHLORIDE 110 mmol/L (98-107); GLUCOSE 93 mg/dL (75-110); PHOSPHORUS 3.3 mg/dL (2.5-4.5); POTASSIUM 3.6 mmol/L (3.6-5.0); SODIUM 145.1 mmol/L (137-145); TOTAL PROTEIN 5.6 g/dL (6.3-8.2)
[2018-01-13] MEDS: BACLOFEN 10 MG TABLET PO SCH (06:48)
[2018-01-13] MEDS: LANSOPRAZOLE 30 MG TAB.RAP.DR PO SCH (07:20)
[2018-01-13] MEDS: HYDROCODONE/ACETAMINOPHEN 7.5-325 MG TABLET PO PRN (08:25)
[2018-01-13] MEDS: CITALOPRAM HYDROBROMIDE 20 MG TABLET PO SCH (11:00)
[2018-01-13] MEDS: IPRATROPIUM 0.03% NASL SCH (11:00)
[2018-01-13] MEDS: GUAIFENESIN 600 MG TABLET.SA PO SCH (11:00)
[2018-01-13] MEDS: ENOXAPARIN SODIUM INJ 40 MG/0.4 ML DISP.SYRIN SUBCUT SCH (11:00)
[2018-01-13] MEDS: DOCUSATE SODIUM 100 MG CAPSULE PO SCH (11:00)
[2018-01-13] MEDS: AMLODIPINE BESYLATE 10 MG TABLET PO SCH (11:00)
[2018-01-13] MEDS: RAMIPRIL 10 MG CAPSULE PO SCH (11:00)
--- NOTE | 2018-01-13 11:25 | PDOC DISCHARGE SUMMARY ---
General - Admit/Disc Date/PCP Admission Date/Primary Care Provider: 01/10/18 13:12 SADIQ ARMSTRONG MD Discharge Date: 01/13/18 - Discharge Diagnosis (1) Aspiration pneumonitis Is this a current diagnosis for this admission?: Yes Summary: The patient presented with increased shortness of breath. CT scan did not reveal a definite pneumonia but he certainly had leukocytosis and increased work of breathing at the time of admission. He was placed on IV Zosyn and he quickly improved. He will complete a course of p.o. Augmentin as an outpatient. (2) Progressive supranuclear palsy Is this a current diagnosis for this admission?: Yes Summary: He was evaluated by physical therapy and occupational therapy. He did quite well. The patient's is requesting home health services at the time of discharge. He will follow-up with his neurologist at his next regular appointment. Certainly he seems to be having increasing issues lately. (3) Dysphagia Is this a current diagnosis for this admission?: Yes Summary: He was evaluated by speech therapy. He does have signs of aspiration. They did not recommend making any changes to his diet. At this point he is being discharged on a mechanical soft diet with thin liquids. I am setting up speech therapy at home. (4) Ambulatory dysfunction Is this a current diagnosis for this admission?: Yes Summary: He will continue to work with the therapist in the home setting initially. As he grows stronger the would like him to transition to an outpatient program. (5) Hyperglycemia Is this a current diagnosis for this admission?: Yes Summary: Resolved. Likely reactive (6) Do not resuscitate Is this a current diagnosis for this admission?: Yes - Additional Information Resuscitation Status: Do Not Resuscitate Discharge Diet: Other (Comments) - Mechanical soft with thin liquids Discharge Activity: Activity As Tolerated, Slowly Increase Activity, Supervised Activity Prescriptions: Hydrocodone Bit/Homatropine [Hycodan Syrup 5-1.5 mg/5 ml Ud Cup] 5 ml PO Q4HP PRN #120 ml PRN Reason: Amox Tr/Potassium Clavulanate [Augmentin 875-125 mg Tablet] 1 tab PO BID #20 tablet Guaifenesin [Mucinex Sr 600 mg Tablet.sa] 600 mg PO Q12 #60 tablet.sa Home Medications: Amlodipine Besylate [Norvasc 10 mg Tablet] 10 mg PO DAILY 01/10/18 Aspirin [Ecotrin 81 mg EC Tablet] 81 mg PO DAILY 01/10/18 Baclofen [Baclofen 10 mg Tablet] 5 mg PO Q8 01/10/18 Carboxymethylcellulos/Glycerin [Refresh Optive Gel Eye Drops] 1 drop OU BID 12/23 Citalopram Hydrobromide [Citalopram HBr] 20 mg PO DAILY 01/10/18 Ezetimibe [Zetia 10 mg Tablet] 10 mg PO QHS 01/10/18 Famotidine [Pepcid 20 mg Tablet] 20 mg PO BID 01/10/18 Hydrocodone/Acetaminophen [Hydrocodone-Acetamin 7.5-325] 1 tab PO Q8HP PRN 01/10 Ipratropium/Albuterol Sulfate [Iprat-Albut 0.5-3(2.5) mg/3 ml] 3 ml NEB Q8HP PRN 01/10/18 Mineral Oil/Petrolatum,White [Refresh P.m. Ointment] 1 applic OU QHS 01/10/18 Polyethylene Glycol 3350 [Miralax Powder 17 gm/Packet] 17 gm PO DAILY 01/10/18 Prednisolone Acetate [Pred Forte] 1 drop OD DAILY 01/10/18 Quetiapine Fumarate [Seroquel 25 mg Tablet] 25 mg PO QHS 01/10/18 Ramipril [Altace 10 mg Capsule] 10 mg PO DAILY 01/10/18 Temazepam [Restoril] 30 mg PO QHS 01/10/18 Multivitamin [Multiple Vitamins] 1 each PO DAILY 01/11/18 Amox Tr/Potassium Clavulanate [Augmentin 875-125 mg Tablet] 1 tab PO BID #20 tablet 01/13/18 Guaifenesin [Mucinex Sr 600 mg Tablet.sa] 600 mg PO Q12 #60 tablet.sa 01/13/18 Hydrocodone Bit/Homatropine [Hycodan Syrup 5-1.5 mg/5 ml Ud Cup] 5 ml PO Q4HP PRN #120 ml 01/13/18 History of Present Illness History of Present Illness: SURYA ALEXIS is a 72 year old male with progressive supranuclear palsy. He was just discharged from our facility a week ago where he was treated for aspiration pneumonia. He was sent out on p.o. clindamycin. The patient's neurologic status has worsened over recent months. The patient's family states that he was doing fine at home but developed increasing cough and congestion and he was brought back to the hospital for further evaluation and treatment. Hospital Course Hospital Course: He was admitted to the hospital and started on IV Zosyn. His leukocytosis that was present on admission quickly resolved and his respiratory status improved. The patient did complain of abdominal pain. He had an abdominal ultrasound which was unremarkable. It was felt that his abdominal pain is due to his frequent coughing and he was given Hycodan cough syrup with some relief. He was evaluated by physical therapy and occupational therapy and actually was able to ambulate a short distance. Speech therapy evaluated the patient and performed a video swallow which did reveal some tracheal aspiration. They did not recommend any changes to his diet and wanted him to continue a mechanical soft diet with thin liquids. Over the course of the hospitalization the patient is greatly improved. At the request of the patient's he will be set up with home health physical therapy, occupational therapy speech therapy and nursing at the time of discharge. I would like physical therapy to see the patient to assist with strength and safety training. Occupational therapy for training with ADLs. Speech therapy to help with his speech and also to monitor his swallowing. Nursing to keep an eye on his respiratory status, medications and any lab draws needed by Dr. Armstrong. At this point it is felt that he can safely be discharged home with close outpatient follow-up. He is in stable condition on the day of discharge. Physical Exam Vital Signs: Temp Pulse Resp BP Pulse Ox 97.9 F 91 20 142/78 H 98 01/13/18 08:34 01/13/18 08:34 01/13/18 08:34 01/13/18 08:34 01/13/18 08:34 Intake & Output 01/12/18 01/13/18 01/14/18 06:59 06:59 06:59 Intake Total 2982 2734 Output Total 350 500 Balance 2432 2234 Weight 93.2 kg 93.2 kg General appearance: PRESENT: well-developed, well-nourished Head exam: PRESENT: atraumatic, normocephalic Eye exam: PRESENT: conjunctiva pink, EOMI, PERRLA. ABSENT: scleral icterus Ear exam: PRESENT: normal external ear exam Respiratory exam: PRESENT: other - He has some upper airway rhonchi but overall his lungs sound fairly clear Cardiovascular exam: PRESENT: RRR. ABSENT: diastolic murmur, rubs, systolic murmur Pulses: PRESENT: normal dorsalis pedis pul GI/Abdominal exam: PRESENT: normal bowel sounds, soft. ABSENT: distended, guarding, mass, organolmegaly, rebound, tenderness Rectal exam: PRESENT: deferred Extremities exam: PRESENT: full ROM. ABSENT: calf tenderness, clubbing, pedal edema Neurological exam: PRESENT: alert, awake, oriented to person, oriented to place , oriented to time, oriented to situation, CN II-XII grossly intact, other - The patient has issues with his speech. He has good muscle strength in all 4 of his extremities but lack of motor coordination.. ABSENT: motor sensory deficit Psychiatric exam: PRESENT: appropriate affect, normal mood. ABSENT: homicidal ideation, suicidal ideation Skin exam: PRESENT: dry, intact, warm. ABSENT: cyanosis, rash Results Laboratory Results: 01/13/18 05:00 01/13/18 05:00 01/13/18 01/13/18 05:00 05:00 WBC 6.7 RBC 4.35 Hgb 14.3 Hct 41.5 MCV 95 MCH 32.8 MCHC 34.4 RDW 13.7 Plt Count 213 Seg Neutrophils % 56.3 Lymphocytes % 25.4 Monocytes % 14.9 H Eosinophils % 2.8 Basophils % 0.6 Absolute Neutrophils 3.7 Absolute Lymphocytes 1.7 Absolute Monocytes 1.0 Absolute Eosinophils 0.2 Absolute Basophils 0.0 Sodium 145.1 H Potassium 3.6 Chloride 110 H Carbon Dioxide 24 Anion Gap 11 BUN 9 Creatinine 0.66 Est GFR ( Amer) > 60 Est GFR (Non-Af Amer) > 60 Glucose 93 Calcium 8.9 Phosphorus 3.3 Magnesium 2.5 H Total Bilirubin 0.7 AST 23 ALT 21 Alkaline Phosphatase 58 Total Protein 5.6 L Albumin 3.3 L 01/11/18 04:56 NT-Pro-B Natriuret Pep 116 Impressions: Chest/Abdomen CTA 01/10/18 00:00 IMPRESSION: NORMAL CTA OF THE CHEST. NO PULMONARY EMBOLI. Chest X-Ray 01/10/18 10:19 IMPRESSION: NO ACUTE RADIOGRAPHIC FINDING IN THE CHEST. Modified Barium Swallow 01/11/18 07:00 IMPRESSION: SUSPECT TRACHEAL ASPIRATION WITH THIN LIQUIDS.PLEASE SEE SPEECH PATHOLOGIST REPORT FOR OTHER FINDINGS AND RECOMMENDATIONS. Abdomen Ultrasound 01/12/18 00:00 IMPRESSION: NO SIGNIFICANT FINDING IN THE VISUALIZED ABDOMEN. Qualifiers - * PATIENT BEING DISCHARGED WITH ANY OF THE FOLLOWING DIAGNOSIS: No Plan Time Spent: Greater than 30 Minutes
[2018-01-13 12:52] VITALS: BP 153/92
== END 2018-01-13 13:30 | disposition home health service (06) | DRG 178 ==
LOC: ER 09:41 → EH 13:12 → 4W 15:25
PROVIDERS: ADMIT Internal Medicine; ATTEND Internal Medicine
DX: J69.0 Pneumonitis due to inhalation of food and vomit (principal); G23.1 Progressive supranuclear ophthalmoplegia [Steele-Richardson-Olszewski]; Z66 Do not resuscitate; R13.10 Dysphagia, unspecified; R73.9 Hyperglycemia, unspecified; I10 Essential (primary) hypertension; R26.9 Unspecified abnormalities of gait and mobility; F32.9 Major depressive disorder, single episode, unspecified; Z95.1 Presence of aortocoronary bypass graft; Z79.82 Long term (current) use of aspirin; Z79.899 Other long term (current) drug therapy
CPT/HCPCS: 36415; 36600; 71046; 71275; 74230; 76700; 80048; 80076; 82803; 83605; 83735; 83880; 84100; 85025; 87040; 87070; 87205; 94640; 99285; G8978-GP; G8979-GP; G8987-GO; G8988-GO; G8989-GO; G8996-GN; G8997-GN; G8998-GN; J1650; J2405; J2543; J3490; J7030; J7620

== ENCOUNTER 2019-05-28 19:31 | Inpatient (IN) | payer MEDICARE, BC ==
[2019-05-28 19:52] LABS: HEMATOCRIT 45.5 % (37.9-51.0); HEMOGLOBIN 15.3 g/dL (13.5-17.0); MEAN CORPUSCULAR HEMOGLOBIN 32.2 pg (27.0-33.4); MEAN CORPUSCULAR HGB CONC 33.5 g/dL (32.0-36.0); MEAN CORPUSCULAR VOLUME 96 fl (80-97); PLATELET COUNT 292 10^3/uL (150-450); RED BLOOD COUNT 4.73 10^6/uL (4.35-5.55); WHITE BLOOD COUNT 22.1 10^3/uL (4.0-10.5)
[2019-05-28 19:59] LABS: PROTHROMBIN TIME 15.2 SEC (11.4-15.4)
[2019-05-28 20:05] LABS: ALBUMIN 4.2 g/dL (3.5-5.0); ALKALINE PHOSPHATASE 73 U/L (38-126); ANION GAP 18 (5-19); ASPARTATE AMINO TRANSFERASE 36 U/L (17-59); BILIRUBIN,DIRECT 0.3 mg/dL (0.0-0.4); BILIRUBIN,TOTAL 1.7 mg/dL (0.2-1.3); BLOOD UREA NITROGEN 57 mg/dL (7-20); CALCIUM 10.4 mg/dL (8.4-10.2); CARBON DIOXIDE 21 mmol/L (22-30); CHLORIDE 108 mmol/L (98-107); GLUCOSE 163 mg/dL (75-110); POTASSIUM 4.1 mmol/L (3.6-5.0); TOTAL PROTEIN 7.1 g/dL (6.3-8.2)
[2019-05-28] MEDS ORDERED: ACETAMINOPHEN 650 MG SUPP.RECT PR ONE (20:07)
[2019-05-28] MEDS ORDERED: NORMAL SALINE 1000 ML 1,000 ML IV ONE (20:10)
[2019-05-28] MEDS ORDERED: FAMOTIDINE INJ/PF 20 MG/2 ML SDV IV ONE (20:12)
[2019-05-28 20:13] LABS: ABSOLUTE LYMPHOCYTES# (MANUAL) 1.3 10^3/uL (0.5-4.7); ABSOLUTE MONOCYTES # (MANUAL) 1.3 10^3/uL (0.1-1.4); ANISOCYTOSIS SLIGHT; BASOPHILS % (MANUAL) 0 % (0-2); EOSINOPHILS % (MANUAL) 0 % (0-6); LYMPHOCYTES % (MANUAL) 4 % (13-45); MONOCYTES % (MANUAL) 6 % (3-13); PLATELET COMMENT ADEQUATE; SEGMENTED NEUTROPHILS % (MAN) 88 % (42-78); TOTAL CELLS COUNTED 100
[2019-05-28] MEDS ORDERED: PANTOPRAZOLE SODIUM 40 MG VIAL IV ONE (20:13)
[2019-05-28 20:32] LABS: VENOUS BLOOD BASE EXCESS 1.5 mmol/L; VENOUS BLOOD HCO3 23.9 mmol/L (20-32); VENOUS BLOOD PCO2 31.8 mmHg (35-63); VENOUS BLOOD PH 7.49 (7.30-7.42)
--- NOTE | 2019-05-28 20:32 | RADIOLOGY REPORT (SQ) ---
EXAM DESCRIPTION: XR CHEST 1 VIEW COMPLETED DATE/TME: 05/28/2019 19:34 CLINICAL HISTORY: 74 years, Male, resp distress COMPARISON: Prior study from 02/09/2018 NUMBER OF VIEWS: One TECHNIQUE: Single frontal view of the chest was obtained portably LIMITATIONS: None. FINDINGS: Status post median sternotomy. Cardiac and mediastinal contours are stable. Lungs are clear. No pleural effusion or pneumothorax. IMPRESSION: No acute disease. copyright 2010 [employer]- All Rights Reserved
[2019-05-28] MEDS ORDERED: PIPERACILLIN/TAZOBACTAM 3.375 GM VIAL IV ONE (20:49)
[2019-05-28] MEDS ORDERED: NORMAL SALINE 1000 ML 500 ML IV ONE (22:04)
--- NOTE | 2019-05-28 22:07 | ER Document Report ---
ED General - General Chief Complaint: General Weakness Stated Complaint: FEVER Time Seen by Provider: 05/28/19 20:06 Primary Care Provider: SADIQ ARMSTRONG MD [Primary Care Provider] - Follow up as needed Mode of Arrival: Medic Information source: Patient TRAVEL OUTSIDE OF THE [place] IN LAST 30 DAYS: No - HPI Notes: Patient is a 18-year-old male presents the emergency department with report of a long-standing history of supranuclear palsy Who is unable to ambulate without significant assistance with a gait belt only with bed to chair transfers, has a history of dysphagia and recurrent aspiration pneumonia presents to the emergency department with family with report of increased cough recently with decreased oral intake and one episode of vomiting noted at home that did not have obvious coffee-ground emesis, although when the patient arrived he did have one episode of vomiting that had a slight coffee-ground character but very minimal productivity. The patient was picked up by EMS and had a axillary temperature of 101 and patient was given 1 L normal saline bolus by EMS and temperature on arrival was under 100. Patient reports abdominal pain diffusely but worse through the lower abdomen. There is been no reported constipation or diarrhea or melena. No prior history of urinary retention. patient does have a history of previous decubitus ulcers, but these have currently healed according to family. For at baseline, the patient is Able to answer yes and no but does have significant difficulty with other verbal interactions. Patient is a DNR. - Related Data Allergies/Adverse Reactions: erythromycin base [From Staticin] Allergy (Verified 01/10/18 10:18) ethyl alcohol [From Staticin] Allergy (Verified 01/10/18 10:18) oxycodone [From Percocet] Allergy (Verified 01/10/18 10:18) Aozepgi-Tas-Gxc Reductase Inhibitor Allergy (Verified 01/10/18 10:18) Sulfa (Sulfonamide Antibiotics) Allergy (Verified 01/10/18 10:18) Past Medical History - General Information source: Patient - Social History Smoking Status: Never Smoker Frequency of alcohol use: None Drug Abuse: None Lives with: Family Family History: Reviewed & Not Pertinent Patient has suicidal ideation: No Patient has homicidal ideation: No - Past Medical History Cardiac Medical History: Reports: Hx Hypertension Pulmonary Medical History: Reports: Hx Pneumonia - Aspiration Denies: Hx Asthma, Hx COPD Neurological Medical History: Denies: Hx Cerebrovascular Accident Renal/ Medical History: Denies: Hx Peritoneal Dialysis Psychiatric Medical History: Reports: Hx Depression Past Surgical History: Reports: Hx Coronary Artery Bypass Graft, Hx Open Heart Surgery - CABGx3, Other - Immunizations Hx Pneumococcal Vaccination: 08/08/15 Review of Systems - Review of Systems -: Yes All other systems reviewed and negative Physical Exam - Vital signs Vitals: Resp Pulse Ox 38 H 92 05/28/19 19:39 05/28/19 19:39 - Notes Notes: PHYSICAL EXAMINATION: GENERAL: well-nourished, obvious shaking and rigors on arrival. HEAD: Atraumatic, normocephalic. EYES: Pupils equal round and reactive to light, extraocular movements intact, sclera anicteric, conjunctiva are normal. ENT: Nares patent, oropharynx clear without exudates. Moist mucous membranes. NECK: Normal range of motion, supple without lymphadenopathy LUNGS: Breath sounds clear to auscultation bilaterally and equal. No wheezes rales or rhonchi. HEART: Tachycardic rate of 115 with regular rhythm with 1/6 systolic ejection murmur over apex. ABDOMEN: No masses appreciated. Diffusely tender with distention through the abdomen with pain midepigastric and discomfort mainly over the lower midline abdominal region with minimal bladder distention noted. Musculoskeletal: Normal range of motion, no pitting or edema. No cyanosis. NEUROLOGICAL: Generalized weakness noted without focal unilateral findings. The patient is able to communicate by answering yes and no and other interactions, per the patient's baseline according to the family. PSYCH: Normal mood, normal affect. SKIN: Warm, Dry, normal turgor, no rashes or lesions noted. Patient has areas of healed decubitus ulcers on the gluteal regions bilaterally. No active evidence for infection. Course - Re-evaluation Re-evalutation: 05/28/19 22:14 Blood cultures were obtained on the patient prior to patient receiving IV antibiotics with Zosyn. Patient was given normal saline bolus of greater than 30 cc/kg of normal saline for possible sepsis. Patient was given rectal Tylenol for fever. Patient had a very minimal amount of vomitus that was heme positive with a very slight coffee-ground character. Patient was given IV Pepcid and Protonix. Fernandez catheter was placed in patient and 1 L of urine was returned. Patient has no prior history of urinary retention or small bowel obstruction. Troponin remained stable. No evidence for acute GA or ischemia. Repeat lactic acid improved after rehydration. On repeat exam, the patient was still reporting some abdominal pain with distention. 05/29/19 00:04 Discussion was undertaken with the patient's family, and they confirmed that the patient was a DO NOT RESUSCITATE and the DO NOT RESUSCITATE order was written. The family did request IV fluids and antibiotics and other interventions as indicated. Discussion was undertaken with the hospitalist Dr. Rojas, and he agreed to admit the patient for further evaluation and care. 05/29/19 00:06 - Vital Signs Vital signs: Temp Pulse Resp BP Pulse Ox 99.5 F 28 H 152/81 H 96 05/28/19 23:01 05/28/19 23:01 05/28/19 23:00 05/28/19 23:31 - Laboratory Result Diagrams: 05/28/19 19:10 05/28/19 19:10 Laboratory results interpreted by me: 05/28/19 05/28/19 05/28/19 19:10 19:10 19:10 WBC 22.1 H Seg Neuts % (Manual) 88 H Lymphocytes % (Manual) 4 L Abs Neuts (Manual) 19.4 H VBG pH VBG pCO2 Sodium 146.8 H Chloride 108 H Carbon Dioxide 21 L BUN 57 H Creatinine 1.50 H Est GFR ( Amer) 55 L Est GFR (MDRD) Non-Af 46 L Glucose 163 H POC Glucose Lactic Acid Calcium 10.4 H Total Bilirubin 1.7 H NT-Pro-B Natriuret Pep 2240 H Urine Protein Urine Ketones Urine Urobilinogen Urine Ascorbic Acid 05/28/19 05/28/19 05/28/19 19:55 20:17 20:20 WBC Seg Neuts % (Manual) Lymphocytes % (Manual) Abs Neuts (Manual) VBG pH 7.49 H VBG pCO2 31.8 L Sodium Chloride Carbon Dioxide BUN Creatinine Est GFR ( Amer) Est GFR (MDRD) Non-Af Glucose POC Glucose 127 H Lactic Acid 3.9 H Calcium Total Bilirubin NT-Pro-B Natriuret Pep Urine Protein Urine Ketones Urine Urobilinogen Urine Ascorbic Acid 05/28/19 21:20 WBC Seg Neuts % (Manual) Lymphocytes % (Manual) Abs Neuts (Manual) VBG pH VBG pCO2 Sodium Chloride Carbon Dioxide BUN Creatinine Est GFR ( Amer) Est GFR (MDRD) Non-Af Glucose POC Glucose Lactic Acid Calcium Total Bilirubin NT-Pro-B Natriuret Pep Urine Protein 100 H Urine Ketones TRACE H Urine Urobilinogen 4.0 H Urine Ascorbic Acid 40 H - EKG Interpretation by Me EKG shows normal: Sinus rhythm Additional EKG results interpreted by me: 05/28/19 22:17 EKG as interpreted by me showed sinus tachycardia heart rate of 117 with baseline artifact. There was no gross evidence for acute GA or ischemia noted. There was a slight right axis deviation. There was no old EKG available for comparison. Critical Care Note - Critical Care Note Total time excluding time spent on procedures (mins): 53 Discharge - Discharge Clinical Impression: Lactic acidosis, Small bowel obstruction, Dehydration, Urinary retention Fever Qualifiers: Fever type: unspecified Qualified Code(s): R50.9 - Fever, unspecified Urinary tract infection Qualifiers: Urinary tract infection type: site unspecified Hematuria presence: without hematuria Qualified Code(s): N39.0 - Urinary tract infection, site not specified Vomiting Qualifiers: Vomiting type: unspecified Vomiting Intractability: non-intractable Nausea pre sence: with nausea Qualified Code(s): R11.2 - Nausea with vomiting, unspecified Condition: Serious Disposition: ADMITTED INPATIENT Admitting Provider: Bob (Hospitalist) Unit Admitted: IMCU Referrals: SADIQ ARMSTRONG MD [Primary Care Provider] - Follow up as needed
--- NOTE | 2019-05-28 22:11 | RADIOLOGY REPORT (SQ) ---
EXAM DESCRIPTION: CT ABDOMEN PELVIS WITH IV CONTRAST COMPLETED DATE/TME: 05/28/2019 20:11 CLINICAL HISTORY: 74 years, Male, Fever, abd pain, hematemesis This exam was performed according to our departmental dose-optimization program which includes automated exposure control, adjustment of the mA and/or kVp according to patient size and/or use of iterative reconstruction technique where applicable. FINDINGS: Visualized lung bases are within normal limits. Liver, spleen, pancreas, adrenal glands and kidneys are within normal limits. No hydronephrosis or biliary dilatation. Gallbladder is unremarkable. The stomach is moderately dilated. The proximal small bowel loops are moderately dilated. These can be traced to an abrupt transition in the mid pelvis, beyond which there are decompressed small bowel loops. The appendix is normal. Mild amount of stool in the colon. Bladder decompressed by Fernandez catheter. Prostate is mildly enlarged, measuring 5.5 x 4.2 cm. No abdominal, retroperitoneal or pelvic lymphadenopathy. Abdominal aorta is mildly calcified without aneurysm. IMPRESSION: High-grade distal small bowel obstruction with transition point in the mid pelvis, likely from mechanical bowel obstruction.
[2019-05-28 22:51] LABS: APPEARANCE,URINE CLOUDY; BILIRUBIN,URINE NEGATIVE (NEGATIVE); CALCIUM OXALATE CRYSTALS,URINE FEW /HPF; COLOR,URINE AMBER; GLUCOSE, URINE NEGATIVE (NEGATIVE); KETONES,URINE TRACE mg/dL (NEGATIVE); LEUKOCYTE ESTERASE,URINE NEGATIVE (NEGATIVE); NITRITE,URINE NEGATIVE (NEGATIVE); PROTEIN,URINE 100 mg/dL (NEGATIVE); URINE SPECIFIC GRAVITY 1.027
[2019-05-29] MEDS ORDERED: LIDOCAINE 2% JELLY 30 ML TUBE TOP ONE (00:21)
[2019-05-29] MEDS ORDERED: LIDOCAINE 2% INJ (20 MG/ML) 20 ML MDV INJ ONE (00:46)
[2019-05-29] MEDS ORDERED: PROMETHAZINE HCL INJ 25 MG/1 ML VIAL IV PRN (01:19)
[2019-05-29] MEDS ORDERED: DEXTROSE 50%-WATER 25 GM/50 ML DISP.SYRIN IV PRN ×2 (01:19)
[2019-05-29] MEDS ORDERED: DEXTROSE 40% GEL 15 GM TUBE PO PRN ×2 (01:19)
[2019-05-29] MEDS ORDERED: GLUCAGON,HUMAN RECOMB 1 MG INJ SUBCUT PRN (01:19)
[2019-05-29] MEDS ORDERED: LEVALBUTEROL HCL NEB 0.63 MG/3 ML AMPUL NEB PRN (01:19)
[2019-05-29] MEDS ORDERED: HYDRALAZINE HCL INJ/PF 20 MG/1 ML SDV IV PRN (01:29)
[2019-05-29] MEDS ORDERED: NALBUPHINE HCL INJ 10 MG/1 ML AMPULE IV PRN (01:29)
[2019-05-29] MEDS ORDERED: PHARMACY COMMUNICATION ORDER MC NR (01:30)
[2019-05-29] MEDS ORDERED: MORPHINE SULFATE 10 MG/ML INJ IV ONE (01:36)
[2019-05-29] MEDS ORDERED: PIPERACILLIN/TAZOBACTAM 3.375 GM VIAL IV PRN (01:45)
[2019-05-29 02:17] LABS: FREE T3 2.87 pg/mL (2.77-5.27); FREE T4 (FREE THYROXINE) 1.2 ng/dL (0.78-2.19)
[2019-05-29 02:31] LABS: THYROID STIMULATING HORMONE 1.79 uIU/mL (0.47-4.68)
[2019-05-29] MEDS ORDERED: PIPERACILLIN SODIUM/TAZOBACTAM 3.375 GM in NORMAL SALINE 100 ML IV SCH (03:00)
--- NOTE | 2019-05-29 03:50 | PDOC H&P ---
History of Present Illness Admission Date/PCP: 05/29/19 00:18 SADIQ ARMSTRONG MD Patient complains of: Cough History of Present Illness: SURYA LUNSFORD is a 74 year old male who presents the emergency room via EMS with his family complaining of a cough. Patient has supranuclear palsy and is unable to assist with the communication of his history. Family members admit that he has had a recently increased cough with decreased oral intake and one episode of vomiting at home prior to transport to the ER. EMS reported finding a fever of 101 F at the time of transport. In the emergency room patient was found to have an elevated lactic acid, tachycardia, leukocytosis, fever, r adiographic evidence of a bowel obstruction and acute urinary retention. Patient was treated with IV fluids, Fernandez catheter and an NG tube was placed. He was started on Zosyn as antibiotic therapy and was subsequently admitted to the hospital service for further evaluation treatment. Past Medical History Cardiac Medical History: Reports: Coronary Artery Disease, Hypertension Denies: Myocardial Infarction Pulmonary Medical History: Reports: Pneumonia - Aspiration Denies: Asthma, Chronic Obstructive Pulmonary Disease (COPD) EENT Medical History: Denies: Cataracts, Ears - Hearing aids Neurological Medical History: Reports: Other - Supranuclear palsy Denies: Hemorrhagic CVA, Ischemic CVA, Multiple Sclerosis, Seizures Endocrine Medical History: Denies: Diabetes Mellitus Type 1, Diabetes Mellitus Type 2, Hyperthyroidism, Hypothyroidism Renal/ Medical History: Denies: Chronic Kidney Disease, Nephrolithiasis Malignancy Medical History: Reports: None GI Medical History: Denies: Cirrhosis, Gastroesophageal Reflux Disease, Hepatitis, Peptic Ulcer Disease Musculoskeltal Medical History: Denies: Arthritis, Gout Skin Medical History: Denies: Eczema, Psoriasis Psychiatric Medical History: Reports: Depression Denies: Alcohol Dependency, Substance Abuse, Tobacco Dependency Traumatic Medical History: Reports: None Hematology: Denies: Anemia, Bleeding Tendencies Infectious Medical History: Reports: None Past Surgical History Past Surgical History: Reports: Coronary Artery Bypass Graft, Other - Left eye corneal transplant Social History Information Source: Relative Lives with: Family Smoking Status: Never Smoker Electronic Cigarette use?: No Frequency of Alcohol Use: None Hx Recreational Drug Use: No Drugs: None Hx Prescription Drug Abuse: No - Advance Directive Resuscitation Status: Do Not Resuscitate Surrogate healthcare decision maker:: Emma Lunsford Family History Family History: CAD, Malignancy Parental Family History Reviewed: Yes Children Family History Reviewed: No Sibling(s) Family History Reviewed.: Yes Medication/Allergy Home Medications: Amlodipine Besylate [Norvasc 10 mg Tablet] 10 mg PO DAILY 01/10/18 Aspirin [Ecotrin 81 mg EC Tablet] 81 mg PO DAILY 01/10/18 Baclofen [Baclofen 10 mg Tablet] 5 mg PO Q8 01/10/18 Carboxymethylcellulos/Glycerin [Refresh Optive Gel Eye Drops] 1 drop OU BID 01/10/18 Citalopram Hydrobromide [Citalopram HBr] 20 mg PO DAILY 01/10/18 Ezetimibe [Zetia 10 mg Tablet] 10 mg PO QHS 01/10/18 Famotidine [Pepcid 20 mg Tablet] 20 mg PO BID 01/10/18 Hydrocodone/Acetaminophen [Hydrocodone-Acetamin 7.5-325] 1 tab PO Q8HP PRN 01/10/18 Mineral Oil/Petrolatum,White [Refresh P.m. Ointment] 1 applic OU QHS 01/10/18 Polyethylene Glycol 3350 [Miralax Powder 17 gm/Packet] 17 gm PO DAILY 01/10/18 Prednisolone Acetate [Pred Forte] 1 drop OD DAILY 01/10/18 Quetiapine Fumarate [Seroquel 25 mg Tablet] 25 mg PO QHS 01/10/18 Ramipril [Altace 10 mg Capsule] 10 mg PO DAILY 01/10/18 Temazepam [Restoril] 30 mg PO QHS 01/10/18 Multivitamin [Multiple Vitamins] 1 each PO DAILY 01/11/18 Amox Tr/Potassium Clavulanate [Augmentin 875-125 mg Tablet] 1 tab PO BID #20 tablet 01/13/18 Guaifenesin [Mucinex Sr 600 mg Tablet.sa] 600 mg PO Q12 #60 tablet.sa 01/13/18 Hydrocodone Bit/Homatropine [Hycodan Syrup 5-1.5 mg/5 ml Ud Cup] 5 ml PO Q4HP PRN #120 ml 01/13/18 Ipratropium/Albuterol Sulfate [Iprat-Albut 0.5-3(2.5) mg/3 ml] 3 ml NEB Q8HP PRN #1 pkt 01/13/18 Allergies/Adverse Reactions: erythromycin base [From Staticin] Allergy (Verified 01/10/18 10:18) ethyl alcohol [From Staticin] Allergy (Verified 01/10/18 10:18) oxycodone [From Percocet] Allergy (Verified 01/10/18 10:18) Hoouogc-Bri-Wfv Reductase Inhibitor Allergy (Verified 01/10/18 10:18) Sulfa (Sulfonamide Antibiotics) Allergy (Verified 01/10/18 10:18) Review of Systems ROS unobtainable: Due to mental status - Progressive supranuclear palsy limits patient's ability to communicate Physical Exam Vital Signs: Temp Pulse Resp BP Pulse Ox 99.5 F 28 H 152/81 H 96 05/28/19 23:01 05/28/19 23:01 05/28/19 23:00 05/28/19 23:31 Intake & Output 05/27/19 05/28/19 05/29/19 23:59 23:59 23:59 Intake Total 1500 Output Total 600 Balance 900 Weight 77.111 kg General appearance: PRESENT: cooperative, mild distress - Due to abdominal discomfort Head exam: PRESENT: atraumatic, normocephalic Eye exam: PRESENT: conjunctiva pink. ABSENT: conjunctival injection, scleral icterus Ear exam: PRESENT: normal external ear exam. ABSENT: bleeding, drainage Mouth exam: PRESENT: dry mucosa, neck supple Neck exam: ABSENT: thyromegaly, tracheal deviation Respiratory exam: PRESENT: clear to auscultation feliz, symmetrical, unlabored Cardiovascular exam: PRESENT: RRR, rubs. ABSENT: clicks, gallop Pulses: PRESENT: normal radial pulses, normal dorsalis pedis pul Vascular exam: PRESENT: normal capillary refill. ABSENT: pallor GI/Abdominal exam: PRESENT: diminished bowel sounds, distended, hypoactive bowel sounds, tenderness - Generalized mild tenderness Rectal exam: PRESENT: deferred Extremities exam: ABSENT: joint swelling, pedal edema Musculoskeletal exam: ABSENT: deformity, dislocation Neurological exam: PRESENT: awake, other - Answers yes or no to simple questions and can identify some objects in the room by pointing Psychiatric exam: PRESENT: appropriate affect, normal mood Skin exam: PRESENT: dry, intact, warm. ABSENT: jaundice, rash, urticaria Results Laboratory Results: 05/28/19 19:10 05/28/19 19:10 05/28/19 05/28/19 05/28/19 19:10 19:10 19:55 WBC 22.1 H RBC 4.73 Hgb 15.3 Hct 45.5 MCV 96 MCH 32.2 MCHC 33.5 RDW 14.0 Plt Count 292 Seg Neutrophils % Not Reportable VBG pH VBG pCO2 VBG HCO3 VBG Base Excess Sodium 146.8 H Potassium 4.1 Chloride 108 H Carbon Dioxide 21 L Anion Gap 18 BUN 57 H Creatinine 1.50 H Est GFR ( Amer) 55 L Glucose 163 H Lactic Acid 3.9 H Calcium 10.4 H Total Bilirubin 1.7 H AST 36 Alkaline Phosphatase 73 Total Protein 7.1 Albumin 4.2 Urine Color Urine Appearance Urine pH Ur Specific [place] Urine Protein Urine Glucose (UA) Urine Ketones Urine Blood Urine Nitrite Ur Leukocyte Esterase Urine WBC (Auto) Urine RBC (Auto) 05/28/19 05/28/19 05/28/19 20:17 21:20 22:25 WBC RBC Hgb Hct MCV MCH MCHC RDW Plt Count Seg Neutrophils % VBG pH 7.49 H VBG pCO2 31.8 L VBG HCO3 23.9 VBG Base Excess 1.5 Sodium Potassium Chloride Carbon Dioxide Anion Gap BUN Creatinine Est GFR ( Amer) Glucose Lactic Acid 2.1 Calcium Total Bilirubin AST Alkaline Phosphatase Total Protein Albumin Urine Color GHANSHYAM Urine Appearance CLOUDY Urine pH 5.0 Ur Specific [place] 1.027 Urine Protein 100 H Urine Glucose (UA) NEGATIVE Urine Ketones TRACE H Urine Blood NEGATIVE Urine Nitrite NEGATIVE Ur Leukocyte Esterase NEGATIVE Urine WBC (Auto) 8 Urine RBC (Auto) 3 05/28/19 05/28/19 05/28/19 19:10 19:10 22:25 Troponin I 0.050 0.054 NT-Pro-B Natriuret Pep 2240 H Impressions: Chest X-Ray 05/28/19 19:34 IMPRESSION: No acute disease. copyright 2010 [employer]- All Rights Reserved Abdomen/Pelvis CT 05/28/19 20:11 IMPRESSION: High-grade distal small bowel obstruction with transition point in the mid pelvis, likely from mechanical bowel obstruction. Assessment and Plan - Diagnosis (1) Small bowel obstruction Is this a current diagnosis for this admission?: Yes Plan: Patient will be treated with an NG tube and intermittent suction to decompress his upper GI tract. He will be given supportive and symptomatic cares for nausea, vomiting and abdominal pain. Patient will be treated with Nubain 5 to 10 mg IV every 3 hours on an as needed basis using a sliding scale for pain. Serial laboratory evaluations with CBCs metabolic profiles and magnesium levels will be obtained. Surgical consultation will be obtained if patient is not showing resolution over the next few days. Enemas will be administered as needed to eliminate the constipation/fecal impaction portion of the causation of the bowel obstruction. Patient will receive Reglan 10 mg IV every 6 hours. (2) Urinary tract infection Qualifiers: Urinary tract infection type: site unspecified Hematuria presence: without hematuria Qualified Code(s): N39.0 - Urinary tract infection, site not specified Is this a current diagnosis for this admission?: Yes Plan: Cultures of the urine and blood are pending. Patient will be treated with IV fluid and Zosyn 3.375 grams IV every 6 hours. (3) Urinary retention Is this a current diagnosis for this admission?: Yes Plan: Patient's urinary retention has been addressed with Fernandez catheter which be maintained until he is more medically stable. (4) Acute kidney injury (nontraumatic) Is this a current diagnosis for this admission?: Yes Plan: Patient's acute kidney injury will be treated with IV fluids and will be monitored with frequent evaluation of the patient's metabolic profile. (5) Fever Qualifiers: Fever type: unspecified Qualified Code(s): R50.9 - Fever, unspecified Is this a current diagnosis for this admission?: Yes Plan: Patient's fever will be treated symptomatically with Tylenol 650 mg suppositories every for hours as needed. (6) Lactic acidosis Is this a current diagnosis for this admission?: Yes Plan: Serial lactic acids will be obtained to evaluate for possible sepsis/SIRS (7) Progressive supranuclear palsy Is this a current diagnosis for this admission?: Yes Plan: The patient will be placed back on his medical regimen as soon as he is able to take oral medications. - Time Time Spent with patient: 25-34 minutes Medications reviewed and adjusted accordingly: Yes Anticipated discharge: Home - Inpatient Certification Based on my medical assessment, after consideration of the patient's comorbidities, presenting symptoms, or acuity I expect that the services needed warrant INPATIENT care.: Yes I certify that my determination is in accordance with my understanding of Medicare's requirements for reasonable and necessary INPATIENT services [42 CFR 412.3e].: Yes Medical Necessity: Significant Comorbidiites Make Outpatient Treatment Too Risky, Need Close Monitoring Due to Risk of Patient Decompensation, Need For IV Fluids, Need For Continuous Telemetry Monitoring, Need for Pain Control, Need for IV Antibiotics, Risk of Complication if Not Cared For in Hospital, Risk of Diagnosis Which Will Require Inpatient Eval/Care/Monitoring
[2019-05-29] MEDS: NALBUPHINE HCL INJ 10 MG/1 ML AMPULE IV PRN (04:46)
[2019-05-29] MEDS: METOCLOPRAMIDE HCL INJ/PF 10 MG/2 ML SDV IV SCH ×4 (06:13→21:32)
[2019-05-29] MEDS: IPRATROPIUM BROMIDE 0.02% NEB 0.5 MG/2.5 ML AMPUL NEB SCH ×3 (08:30→23:59)
[2019-05-29] MEDS: LEVALBUTEROL HCL NEB 1.25 MG/3 ML AMPUL NEB SCH ×3 (08:30→23:59)
--- NOTE | 2019-05-29 09:00 | RADIOLOGY REPORT (SQ) ---
EXAM DESCRIPTION: KUB/ABDOMEN (SINGLE VIEW) COMPLETED DATE/TIME: 05/29/2019 1:59 am REASON FOR STUDY: Check Placement of NG Tube COMPARISON: None. NUMBER OF VIEWS: One view. TECHNIQUE: Supine radiographic image of the abdomen acquired. LIMITATIONS: None. FINDINGS: The tip and side hole of the enteric tube project past the gastroesophageal junction and w ithin the gastric lumen. There are sternotomy wires in place. There is no basilar consolidation or pleural effusion. IMPRESSION: The tip and side hole of the enteric tube project past the gastroesophageal junction and within the gastric lumen. TECHNICAL DOCUMENTATION: JOB ID: [id number] [employer]- All Rights Reserved Reading location - IP/workstation name: [email or web address]
--- NOTE | 2019-05-29 09:28 | EKG REPORT ---
SEVERITY:- ABNORMAL ECG - SINUS TACHYCARDIA BORDERLINE RIGHT AXIS DEVIATION NONSPECIFIC REPOL ABNORMALITY, DIFFUSE LEADS : Confirmed by: Anel Anton MD 29-May-2019 09:27:28
[2019-05-29] MEDS: PANTOPRAZOLE SODIUM 40 MG VIAL IV SCH ×2 (10:15→21:32)
[2019-05-29 11:06] LABS: ABSOLUTE LYMPHOCYTES (AUTO) 0.9 10^3/uL (0.5-4.7); ABSOLUTE MONOCYTES (AUTO) 1.8 10^3/uL (0.1-1.4); ABSOLUTE NEUT (AUTO) 11.8 10^3/uL (1.7-8.2); BASOPHILS % (AUTO) 0.2 % (0-2); HEMATOCRIT 40.5 % (37.9-51.0); HEMOGLOBIN 13.5 g/dL (13.5-17.0); LYMPHOCYTES % (AUTO) 6.3 % (13-45); MEAN CORPUSCULAR HEMOGLOBIN 32.4 pg (27.0-33.4); MEAN CORPUSCULAR HGB CONC 33.2 g/dL (32.0-36.0); MEAN CORPUSCULAR VOLUME 97 fl (80-97); MONOCYTES % (AUTO) 12.3 % (3-13); PLATELET COUNT 246 10^3/uL (150-450); RED BLOOD COUNT 4.16 10^6/uL (4.35-5.55); RED CELL DISTRIBUTION WIDTH 14.2 % (11.5-14.0); SEGMENTED NEUTROPHILS % (AUTO) 81.2 % (42-78); TOTAL CELLS COUNTED % (AUTO) 100 %; WHITE BLOOD COUNT 14.5 10^3/uL (4.0-10.5)
[2019-05-29 11:27] LABS: ANION GAP 8 (5-19); BLOOD UREA NITROGEN 54 mg/dL (7-20); CALCIUM 9.3 mg/dL (8.4-10.2); CARBON DIOXIDE 30 mmol/L (22-30); CHLORIDE 109 mmol/L (98-107); GLUCOSE 117 mg/dL (75-110); POTASSIUM 3.9 mmol/L (3.6-5.0)
[2019-05-29] MEDS: RINGERS SOLUTION,LACTATED 1,000 ML IV PRN ×2 (11:35→21:32)
[2019-05-29] MEDS: PIPERACILLIN SODIUM/TAZOBACTAM 3.375 GM in NORMAL SALINE 100 ML IV SCH ×2 (12:53→18:06)
--- NOTE | 2019-05-29 16:38 | PDOC CONSULTATION ---
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 Patient apparently has been constipated for a long time and has been taking MiraLAX almost every day for the past year or so. Family claims the patient's condition is affecting his the muscles for the bowel movement mechanism. He came in with abdominal pains yesterday and CT scan of the abdomen revealed possible small bowel obstruction. Patient denies any nausea or vomiting. Past Medical History Cardiac Medical History: Reports: Coronary Artery Disease, Hypertension Denies: Myocardial Infarction Pulmonary Medical History: Reports: Pneumonia - Aspiration Denies: Asthma, Chronic Obstructive Pulmonary Disease (COPD) EENT Medical History: Denies: Cataracts, Ears - Hearing aids Neurological Medical History: Reports: Other - Supranuclear palsy Denies: Hemorrhagic CVA, Ischemic CVA, Multiple Sclerosis, Seizures Endocrine Medical History: Denies: Diabetes Mellitus Type 1, Diabetes Mellitus Type 2, Hyperthyroidism, Hypothyroidism Renal/ Medical History: Denies: Chronic Kidney Disease, Nephrolithiasis Malignancy Medical History: Reports: None GI Medical History: Denies: Cirrhosis, Gastroesophageal Reflux Disease, Hepatitis, Peptic Ulcer Disease Musculoskeltal Medical History: Denies: Arthritis, Gout Skin Medical History: Denies: Eczema, Psoriasis Psychiatric Medical History: Reports: Depression Denies: Alcohol Dependency, Substance Abuse, Tobacco Dependency Traumatic Medical History: Reports: None Hematology: Denies: Anemia, Bleeding Tendencies Infectious Medical History: Reports: None Past Surgical History Past Surgical History: Reports: Coronary Artery Bypass Graft, Other - Left eye corneal transplant Social History Lives with: Family Smoking Status: Never Smoker Electronic Cigarette use?: No Last Time Smoked: 1961 Frequency of Alcohol Use: None Hx Recreational Drug Use: No Drugs: None Hx Prescription Drug Abuse: No - Advance Directive Resuscitation Status: Do Not Resuscitate Family History Family History: CAD, Malignancy Parental Family History Reviewed: Yes Children Family History Reviewed: No Sibling(s) Family History Reviewed.: No Medication/Allergy Home Medications: Amlodipine Besylate [Norvasc 10 mg Tablet] 10 mg PO DAILY 05/29/19 Aspirin [[place] Aspirin] 81 mg PO DAILY 05/29/19 Baclofen [Baclofen 10 mg Tablet] 10 mg PO QHS 05/29/19 Cetirizine HCl [Zyrtec] 10 mg PO DAILY 05/29/19 Duloxetine HCl [Cymbalta] 60 mg PO DAILY 05/29/19 Erythromycin Base [Erythromycin Oph Oint 1 Gm Ud] 1 applic OD QHS 05/29/19 Ezetimibe [Zetia 10 mg Tablet] 10 mg PO DAILY 05/29/19 Famotidine [Pepcid 20 mg Tablet] 20 mg PO BID 05/29/19 Guaifenesin [Mucinex] 600 mg PO BID 05/29/19 Hydrocodone/Acetaminophen [[place] 5-325 mg Tablet] 1 tab PO Q12 05/29/19 Ipratropium [place] [Atrovent 0.06% Nasal [place]] 2 spray NASL ASDIR PRN 05/29/19 Ketotifen Fumarate [Refresh] 1 drop OP ASDIR PRN 05/29/19 Polyethylene Glycol 3350 [Miralax Powder 17 gm/Packet] 1 packet PO DAILY 05/29/19 Prednisolone Acetate/Pf [Prednisolone Acet 1% Eye Drop] 1 drop OD QAM 05/29/19 Quetiapine Fumarate [Quetiapine Fumarate ER] 300 mg PO QHS 05/29/19 Ramipril [Altace 10 mg Capsule] 15 mg PO DAILY 05/29/19 Scopolamine 1 each TD Q3DAYS 05/29/19 Temazepam [Restoril] 30 mg PO QHS 05/29/19 Allergies/Adverse Reactions: erythromycin base [From Staticin] Allergy (Verified 01/10/18 10:18) ethyl alcohol [From Staticin] Allergy (Verified 01/10/18 10:18) oxycodone [From Percocet] Allergy (Verified 01/10/18 10:18) [id number]-Qvk-Cet Reductase Inhibitor Allergy (Verified 01/10/18 10:18) Sulfa (Sulfonamide Antibiotics) Allergy (Verified 01/10/18 10:18) Review of Systems Constitutional: PRESENT: other - No fever or chills Cardiovascular: PRESENT: other - No chest pains nor cough Gastrointestinal: PRESENT: abdominal pain, constipation Neurological: PRESENT: abnormal movements, abnormal speech, lack of coordination Physical Exam Vital Signs: Temp Pulse Resp BP Pulse Ox 99.3 F 103 H 18 125/68 95 10/22/19 11:33 05/29/19 11:33 05/29/19 11:33 05/29/19 11:33 05/29/19 11:33 Intake & Output 05/28/19 05/29/19 05/30/19 06:59 06:59 06:59 Intake Total 1600 100 Output Total 900 Balance 700 100 Weight 79.3 kg 79.3 kg General appearance: PRESENT: mild distress Head exam: PRESENT: atraumatic Eye exam: PRESENT: conjunctiva pink Respiratory exam: PRESENT: clear to auscultation feliz Cardiovascular exam: PRESENT: RRR Pulses: PRESENT: normal radial pulses Vascular exam: PRESENT: normal capillary refill GI/Abdominal exam: PRESENT: soft, tenderness - Mild diffuse, other - NGT has been draining dark greenish fluid Rectal exam: PRESENT: other - Inferior sphincteric tone, rectal vault is empty with no evidence of fecal impaction. Patient just had a enema given by the nurse 20 minutes ago and the nurse also felt no impaction prior to enema Neurological exam: PRESENT: awake, other - Not conversant but appears to cooperate by moving his thumb up when asked about pain Psychiatric exam: PRESENT: anxious - Appears anxious Skin exam: PRESENT: normal color, warm Results Laboratory Results: 05/29/19 10:45 05/29/19 10:45 05/28/19 05/28/19 05/28/19 19:10 19:10 19:10 WBC 22.1 H RBC 4.73 Hgb 15.3 Hct 45.5 MCV 96 MCH 32.2 MCHC 33.5 RDW 14.0 Plt Count 292 Seg Neutrophils % Not Reportable VBG pH VBG pCO2 VBG HCO3 VBG Base Excess Sodium 146.8 H Potassium 4.1 Chloride 108 H Carbon Dioxide 21 L Anion Gap 18 BUN 57 H Creatinine 1.50 H Est GFR ( Amer) 55 L Glucose 163 H Lactic Acid Calcium 10.4 H Total Bilirubin 1.7 H AST 36 Alkaline Phosphatase 73 Total Protein 7.1 Albumin 4.2 TSH 1.79 Free T4 1.20 Free T3 pg/mL 2.87 Urine Color Urine Appearance Urine pH Ur Specific [place] Urine Protein Urine Glucose (UA) Urine Ketones Urine Blood Urine Nitrite Ur Leukocyte Esterase Urine WBC (Auto) Urine RBC (Auto) 05/28/19 05/28/19 05/28/19 19:55 20:17 21:20 WBC RBC Hgb Hct MCV MCH MCHC RDW Plt Count Seg Neutrophils % VBG pH 7.49 H VBG pCO2 31.8 L VBG HCO3 23.9 VBG Base Excess 1.5 Sodium Potassium Chloride Carbon Dioxide Anion Gap BUN Creatinine Est GFR ( Amer) Glucose Lactic Acid 3.9 H Calcium Total Bilirubin AST Alkaline Phosphatase Total Protein Albumin TSH Free T4 Free T3 pg/mL Urine Color GHANSHYAM Urine Appearance CLOUDY Urine pH 5.0 Ur Specific [place] 1.027 Urine Protein 100 H Urine Glucose (UA) NEGATIVE Urine Ketones TRACE H Urine Blood NEGATIVE Urine Nitrite NEGATIVE Ur Leukocyte Esterase NEGATIVE Urine WBC (Auto) 8 Urine RBC (Auto) 3 05/28/19 05/29/19 05/29/19 22:25 06:39 10:45 WBC RBC Hgb Hct MCV MCH MCHC RDW Plt Count Seg Neutrophils % VBG pH VBG pCO2 VBG HCO3 VBG Base Excess Sodium Potassium Chloride Carbon Dioxide Anion Gap BUN Creatinine Est GFR ( Amer) Glucose Lactic Acid 2.1 1.2 1.4 Calcium Total Bilirubin AST Alkaline Phosphatase Total Protein Albumin TSH Free T4 Free T3 pg/mL Urine Color Urine Appearance Urine pH Ur Specific [place] Urine Protein Urine Glucose (UA) Urine Ketones Urine Blood Urine Nitrite Ur Leukocyte Esterase Urine WBC (Auto) Urine RBC (Auto) 05/29/19 05/29/19 05/29/19 10:45 10:45 14:40 WBC 14.5 H RBC 4.16 L Hgb 13.5 Hct 40.5 MCV 97 MCH 32.4 MCHC 33.2 RDW 14.2 H Plt Count 246 Seg Neutrophils % 81.2 H VBG pH VBG pCO2 VBG HCO3 VBG Base Excess Sodium 147.4 H Potassium 3.9 Chloride 109 H Carbon Dioxide 30 Anion Gap 8 BUN 54 H Creatinine 1.04 Est GFR ( Amer) > 60 Glucose 117 H Lactic Acid 1.4 Calcium 9.3 Total Bilirubin AST Alkaline Phosphatase Total Protein Albumin TSH Free T4 Free T3 pg/mL Urine Color Urine Appearance Urine pH Ur Specific [place] Urine Protein Urine Glucose (UA) Urine Ketones Urine Blood Urine Nitrite Ur Leukocyte Esterase Urine WBC (Auto) Urine RBC (Auto) 05/28/19 05/28/19 05/28/19 19:10 19:10 22:25 Troponin I 0.050 0.054 NT-Pro-B Natriuret Pep 2240 H Impressions: Chest X-Ray 05/28/19 19:34 IMPRESSION: No acute disease. copyright 2011 [employer]- All Rights Reserved Abdomen/Pelvis CT 05/28/19 20:11 IMPRESSION: High-grade distal small bowel obstruction with transition point in the mid pelvis, likely from mechanical bowel obstruction. KUB X-Ray 05/29/19 01:21 IMPRESSION: The tip and side hole of the enteric tube project past the gastroesophageal junction and within the gastric lumen. Assessment & Plan - Diagnosis (1) Constipation due to neurogenic bowel Is this a current diagnosis for this admission?: Yes - Time Time Spent: 30 to 50 Minutes - Inpatient Certification Medical Necessity: Need Close Monitoring Due to Risk of Patient Decompensation, Need For IV Fluids - Plan Summary Plan Summary: Plans: Agree with NGT Continue with the enemas If no results with the enemas then a small bowel follow-through with Gastrografin may help delineate the obstruction versus relieving the obstruction close for a 10 doctor on the knee just called me the hospitalist yet this is 414 lower GI bleed right told him to start her on on GoLYTELY and n.p.o. from the n.p.o. from midnight colonoscopy tomorrow with Dr. Angel he
[2019-05-29] MEDS: ACETAMINOPHEN 650 MG SUPP.RECT PR PRN (20:22)
[2019-05-29] MEDS ORDERED: VANCOMYCIN HCL 0 MG in DEXTROSE 5%-WATER 250 ML IV NR (20:45)
[2019-05-29] MEDS ORDERED: VANCOMYCIN HCL 1,250 MG in DEXTROSE 5%-WATER 250 ML IV ONE (22:00)
[2019-05-29] MEDS ORDERED: KETOROLAC TROMETHAMINE INJ/PF 30 MG/1 ML SDV IV ONE (23:45)
[2019-05-30] MEDS: PIPERACILLIN SODIUM/TAZOBACTAM 3.375 GM in NORMAL SALINE 100 ML IV SCH ×4 (00:07→18:39)
[2019-05-30] MEDS: NALBUPHINE HCL INJ 10 MG/1 ML AMPULE IV PRN ×7 (00:07→22:26)
[2019-05-30] MEDS: METOCLOPRAMIDE HCL INJ/PF 10 MG/2 ML SDV IV SCH ×4 (01:22→18:39)
[2019-05-30] MEDS: ACETAMINOPHEN 650 MG SUPP.RECT PR PRN ×2 (06:26→21:30)
[2019-05-30] MEDS: RINGERS SOLUTION,LACTATED 1,000 ML IV PRN ×3 (06:26→22:26)
[2019-05-30 07:05] LABS: HEMATOCRIT 35.5 % (37.9-51.0); HEMOGLOBIN 11.9 g/dL (13.5-17.0); MEAN CORPUSCULAR HEMOGLOBIN 32.7 pg (27.0-33.4); MEAN CORPUSCULAR HGB CONC 33.5 g/dL (32.0-36.0); MEAN CORPUSCULAR VOLUME 97 fl (80-97); PLATELET COUNT 192 10^3/uL (150-450); RED BLOOD COUNT 3.64 10^6/uL (4.35-5.55); RED CELL DISTRIBUTION WIDTH 14.2 % (11.5-14.0); WHITE BLOOD COUNT 8.8 10^3/uL (4.0-10.5)
[2019-05-30 07:22] LABS: ANION GAP 7 (5-19); BLOOD UREA NITROGEN 40 mg/dL (7-20); CALCIUM 8.7 mg/dL (8.4-10.2); CARBON DIOXIDE 29 mmol/L (22-30); CHLORIDE 111 mmol/L (98-107); GLUCOSE 102 mg/dL (75-110); POTASSIUM 3.7 mmol/L (3.6-5.0)
[2019-05-30] MEDS: IPRATROPIUM BROMIDE 0.02% NEB 0.5 MG/2.5 ML AMPUL NEB SCH ×2 (08:18→16:37)
[2019-05-30] MEDS: LEVALBUTEROL HCL NEB 1.25 MG/3 ML AMPUL NEB SCH ×2 (08:18→16:37)
--- NOTE | 2019-05-30 09:43 | RADIOLOGY REPORT (SQ) ---
EXAM DESCRIPTION: KUB/ABDOMEN (SINGLE VIEW) COMPLETED DATE/TIME: 05/30/2019 9:34 am REASON FOR STUDY: sbo COMPARISON: CT dated 05/28/2019, limited KUB dated 05/29/2019 NUMBER OF VIEWS: One view. TECHNIQUE: Supine radiographic image of the abdomen acquired. LIMITATIONS: None. FINDINGS: BOWEL GAS PATTERN: Markedly dilated small bowel. There is air in stool within the colon. Small bowel loops measure greater than 6 cm in diameter. CALCIFICATIONS: No suspicious calcifications. SOFT TISSUES: No gross mass or suggestion of organomegaly. HARDWARE: NG tube remains in place. BONES: No acute fracture. No worrisome bone lesions. OTHER: No other significant finding. IMPRESSION: Persistent small-bowel distention consistent with small-bowel obstruction. Large amount of fecal material throughout the colon. TECHNICAL DOCUMENTATION: JOB ID: [id number] [employer]- All Rights Reserved Reading location - IP/workstation name: [email or web address]
[2019-05-30] MEDS: VANCOMYCIN HCL 750 MG in DEXTROSE 5%-WATER 250 ML IV SCH ×2 (09:55→22:26)
[2019-05-30] MEDS: PANTOPRAZOLE SODIUM 40 MG VIAL IV SCH ×2 (09:56→22:26)
[2019-05-30] MEDS ORDERED: GLYCERIN 99.5% (ANHYDROUS) 177 ML PR PRN (09:58)
[2019-05-30] MEDS ORDERED: MINERAL OIL ENEMA 133 ML PR PRN (10:00)
--- NOTE | 2019-05-30 14:53 | PDOC PROGRESS REPORT ---
Subjective Progress Note for:: 05/30/19 Subjective:: Patient developed fever overnight. Blood culture came back growing GPC 2/2. Patient did continue to require IV pain medications. He appears relatively comfortable upon encounter this morning. Repeat KUB shows persistent SBO pattern. Family apparently has initiated process to transition to home hospice with their home health company. Reason For Visit: ACUTE BOWEL OBSTRUCTION,ACUTE URINARY RETENTION Physical Exam Vital Signs: Temp Pulse Resp BP Pulse Ox 98.5 F 107 H 16 161/79 H 91 L 05/30/19 10:53 05/30/19 10:53 05/30/19 10:53 05/30/19 10:53 05/30/19 10:53 Intake & Output 05/29/19 05/30/19 05/31/19 06:59 06:59 06:59 Intake Total 1600 2650 350 Output Total 900 2650 Balance 700 0 350 Weight 174 lb 13.225 oz 173 lb 4.533 oz General appearance: PRESENT: no acute distress, well-developed, well-nourished Head exam: PRESENT: atraumatic, normocephalic Eye exam: PRESENT: conjunctiva pink, EOMI, PERRLA. ABSENT: scleral icterus Ear exam: PRESENT: normal external ear exam Mouth exam: PRESENT: moist, tongue midline Neck exam: ABSENT: carotid bruit, JVD, lymphadenopathy, thyromegaly Respiratory exam: PRESENT: clear to auscultation feliz. ABSENT: rales, rhonchi, wheezes Cardiovascular exam: PRESENT: RRR. ABSENT: diastolic murmur, rubs, systolic murmur Pulses: PRESENT: normal dorsalis pedis pul GI/Abdominal exam: PRESENT: normal bowel sounds, soft, tenderness. ABSENT: d istended, guarding, mass, organolmegaly, rebound Rectal exam: PRESENT: deferred Results Laboratory Results: 05/30/19 05:50 05/30/19 05:50 05/29/19 05/30/19 05/30/19 14:40 05:50 05:50 WBC 8.8 RBC 3.64 L Hgb 11.9 L Hct 35.5 L MCV 97 MCH 32.7 MCHC 33.5 RDW 14.2 H Plt Count 192 Sodium 147.0 H Potassium 3.7 Chloride 111 H Carbon Dioxide 29 Anion Gap 7 BUN 40 H Creatinine 0.82 Est GFR ( Amer) > 60 Glucose 102 Lactic Acid 1.4 Calcium 8.7 Magnesium 2.5 H 05/28/19 05/28/19 05/28/19 19:10 19:10 22:25 Troponin I 0.050 0.054 NT-Pro-B Natriuret Pep 2240 H Impressions: Chest X-Ray 05/28/19 19:34 IMPRESSION: No acute disease. copyright 2011 [employer]- All Rights Reserved Abdomen/Pelvis CT 05/28/19 20:11 IMPRESSION: High-grade distal small bowel obstruction with transition point in the mid pelvis, likely from mechanical bowel obstruction. KUB X-Ray 05/30/19 00:00 IMPRESSION: Persistent small-bowel distention consistent with small-bowel obstruction. Large amount of fecal material throughout the colon. Assessment and Plan - Diagnosis (1) Small bowel obstruction Is this a current diagnosis for this admission?: Yes Plan: Repeat KUB shows persistent SBO pattern. Surgery following and ordered an enema cocktail/regimen. Possible transition to hospice (2) Acute kidney injury (nontraumatic) Is this a current diagnosis for this admission?: Yes Plan: Resolving with IV fluids. (3) Progressive supranuclear palsy Is this a current diagnosis for this admission?: Yes - Time Time Spent with patient: 25-34 minutes
--- NOTE | 2019-05-30 19:22 | PDOC PROGRESS REPORT ---
Subjective Progress Note for:: 05/30/19 Subjective:: This is a 74-year-old male with chronic constipation, abdominal distention, abdominal bloating, nausea, and vomiting. His x-rays are consistent with partial small bowel obstruction. I believe this is mostly due to his significant constipation. The patient had several enemas yesterday without significant result. Patient has a progressive neurologic disorder, does not respond appropriately to questions or examination. His family is present to relay the recent history. The family reports that he has continued NG tube drainage. Reason For Visit: ACUTE BOWEL OBSTRUCTION,ACUTE URINARY RETENTION Physical Exam Vital Signs: Temp Pulse Resp BP Pulse Ox 99.9 F 98 22 H 139/68 H 95 05/30/19 14:46 05/30/19 16:37 05/30/19 16:37 05/30/19 14:46 05/30/19 16:37 Intake & Output 05/29/19 05/30/19 05/31/19 06:59 06:59 06:59 Intake Total 1600 2650 1350 Output Total 900 2650 1250 Balance 700 0 100 Weight 79.3 kg 78.6 kg General appearance: PRESENT: no acute distress Head exam: PRESENT: atraumatic, normocephalic Eye exam: ABSENT: scleral icterus Mouth exam: PRESENT: moist, neck supple Neck exam: ABSENT: meningismus, tenderness, thyromegaly, tracheal deviation Respiratory exam: PRESENT: unlabored. ABSENT: tachypnea, wheezes Cardiovascular exam: PRESENT: RRR Pulses: PRESENT: normal radial pulses GI/Abdominal exam: PRESENT: distended, soft. ABSENT: rebound, rigid, tenderness Rectal exam: PRESENT: deferred Extremities exam: ABSENT: clubbing Musculoskeletal exam: PRESENT: other - Muscle spasticity present. Neurological exam: ABSENT: alert, awake Psychiatric exam: ABSENT: agitated, anxious, depressed Focused psych exam: ABSENT: delusional Skin exam: ABSENT: cyanosis, erythema Results Laboratory Results: 05/30/19 05:50 05/30/19 05:50 05/30/19 05/30/19 05:50 05:50 WBC 8.8 RBC 3.64 L Hgb 11.9 L Hct 35.5 L MCV 97 MCH 32.7 MCHC 33.5 RDW 14.2 H Plt Count 192 Sodium 147.0 H Potassium 3.7 Chloride 111 H Carbon Dioxide 29 Anion Gap 7 BUN 40 H Creatinine 0.82 Est GFR ( Amer) > 60 Glucose 102 Calcium 8.7 Magnesium 2.5 H 05/28/19 05/28/19 05/28/19 19:10 19:10 22:25 Troponin I 0.050 0.054 NT-Pro-B Natriuret Pep 2240 H Impressions: Chest X-Ray 05/28/19 19:34 IMPRESSION: No acute disease. copyright 2010 [employer]- All Rights Reserved Abdomen/Pelvis CT 05/28/19 20:11 IMPRESSION: High-grade distal small bowel obstruction with transition point in the mid pelvis, likely from mechanical bowel obstruction. KUB X-Ray 05/30/19 00:00 IMPRESSION: Persistent small-bowel distention consistent with small-bowel obstruction. Large amount of fecal material throughout the colon. Assessment & Plan - Diagnosis (1) Constipation due to neurogenic bowel Is this a current diagnosis for this admission?: Yes (2) Vomiting Qualifiers: Vomiting type: unspecified Vomiting Intractability: non-intractable Nausea presence: with nausea Qualified Code(s): R11.2 - Nausea with vomiting, unspecified Is this a current diagnosis for this admission?: Yes - Time Time Spent with patient: Less than 15 minutes - Plan Summary Plan Summary: This is a 74-year-old male with chronic constipation. I believe this is contributing to his "small bowel obstruction". I will attempt more enemas today. The patient was scheduled for a small bowel follow-through, however he still has significant distention on x-ray. I believe a small bowel follow- through would be inadequate today. I will continue his NG tube. I will order another enema. If some stool could be removed from the colon, small bowel follow-through may be advantageous. At present, the patient does not exhibit signs of peritonitis. We will continue to follow this patient very closely with you.
[2019-05-31] MEDS: PIPERACILLIN SODIUM/TAZOBACTAM 3.375 GM in NORMAL SALINE 100 ML IV SCH ×4 (00:17→18:37)
[2019-05-31] MEDS: IPRATROPIUM BROMIDE 0.02% NEB 0.5 MG/2.5 ML AMPUL NEB SCH ×4 (00:19→23:40)
[2019-05-31] MEDS: LEVALBUTEROL HCL NEB 1.25 MG/3 ML AMPUL NEB SCH ×4 (00:19→23:40)
[2019-05-31] MEDS: METOCLOPRAMIDE HCL INJ/PF 10 MG/2 ML SDV IV SCH ×3 (01:24→14:33)
[2019-05-31] MEDS: NALBUPHINE HCL INJ 10 MG/1 ML AMPULE IV PRN ×5 (01:26→21:06)
[2019-05-31 06:29] LABS: HEMATOCRIT 38.6 % (37.9-51.0); HEMOGLOBIN 12.7 g/dL (13.5-17.0); MEAN CORPUSCULAR HEMOGLOBIN 32.1 pg (27.0-33.4); MEAN CORPUSCULAR HGB CONC 32.8 g/dL (32.0-36.0); MEAN CORPUSCULAR VOLUME 98 fl (80-97); PLATELET COUNT 219 10^3/uL (150-450); RED BLOOD COUNT 3.94 10^6/uL (4.35-5.55); RED CELL DISTRIBUTION WIDTH 14.1 % (11.5-14.0); WHITE BLOOD COUNT 13.2 10^3/uL (4.0-10.5)
[2019-05-31] MEDS ORDERED: MINERAL OIL ENEMA 133 ML PR ONE (09:01)
[2019-05-31] MEDS ORDERED: GLYCERIN 99.5% (ANHYDROUS) 177 ML PR ONE (09:15)
--- NOTE | 2019-05-31 10:43 | RADIOLOGY REPORT (SQ) ---
EXAM DESCRIPTION: KUB/ABDOMEN (SINGLE VIEW) COMPLETED DATE/TIME: 05/31/2019 10:12 am REASON FOR STUDY: SBO COMPARISON: 05/30/2019 NUMBER OF VIEWS: One view. TECHNIQUE: Supine radiographic image of the abdomen acquired. LIMITATIONS: None. FINDINGS: Persistent dilated loops of small bowel not significantly changed. Gas and fecal material in the ascending colon. Nasogastric tube tip overlying distal esophagus. IMPRESSION: High position of nasogastric tube. Reading location - IP/workstation name: [email or web address]
[2019-05-31] MEDS: VANCOMYCIN HCL 750 MG in DEXTROSE 5%-WATER 250 ML IV SCH (10:58)
[2019-05-31] MEDS: PANTOPRAZOLE SODIUM 40 MG VIAL IV SCH ×2 (10:58→22:39)
--- NOTE | 2019-05-31 11:38 | RADIOLOGY REPORT (SQ) ---
EXAM DESCRIPTION: KUB/ABDOMEN (SINGLE VIEW) COMPLETED DATE/TIME: 05/31/2019 11:27 am REASON FOR STUDY: NGT placement COMPARISON: Earlier the same day. NUMBER OF VIEWS: One view. TECHNIQUE: Supine radiographic image of the abdomen acquired. LIMITATIONS: None. FINDINGS: Persistent loops of dilated small bowel. Nasogastric tube tip overlies distal stomach. IMPRESSION: Appropriate position of nasogastric tube. Reading location - IP/workstation name: [email or web address]
--- NOTE | 2019-05-31 13:47 | PDOC PROGRESS REPORT ---
Subjective Progress Note for:: 05/31/19 Subjective:: 05/30: Patient developed fever overnight. Blood culture came back growing GPC 2/. Patient did continue to require IV pain medications. He appears relatively comfortable upon encounter this morning. Repeat KUB shows persistent SBO pattern. Family apparently has initiated process to transition to home hospice with their home health company. 05/31: No acute event overnight. No fever. Patient had one BM overnight. Repeat ABG shows persistent obstructive pattern. Surgery closely following. Reason For Visit: ACUTE BOWEL OBSTRUCTION,ACUTE URINARY RETENTION Physical Exam Vital Signs: Temp Pulse Resp BP Pulse Ox 99.4 F 97 20 172/85 H 93 05/31/19 07:39 05/31/19 08:15 05/31/19 08:15 05/31/19 07:39 05/31/19 08:15 Intake & Output 05/30/19 05/31/19 06/01/19 06:59 06:59 06:59 Intake Total 2650 3652 Output Total 2650 2350 Balance 0 1302 Weight 173 lb 4.533 oz 186 lb 8.177 oz General appearance: PRESENT: no acute distress, well-developed, well-nourished Head exam: PRESENT: atraumatic, normocephalic Eye exam: PRESENT: conjunctiva pink, EOMI, PERRLA. ABSENT: scleral icterus Ear exam: PRESENT: normal external ear exam Mouth exam: PRESENT: moist, tongue midline Neck exam: ABSENT: carotid bruit, JVD, lymphadenopathy, thyromegaly Respiratory exam: PRESENT: clear to auscultation feliz. ABSENT: rales, rhonchi, wheezes Cardiovascular exam: PRESENT: RRR. ABSENT: diastolic murmur, rubs, systolic murmur GI/Abdominal exam: PRESENT: normal bowel sounds, soft. ABSENT: guarding, mass, organolmegaly, rebound, tenderness Rectal exam: PRESENT: deferred Results Laboratory Results: 05/31/19 05:20 05/30/19 05:50 05/31/19 05/31/19 05:20 05:20 WBC 13.2 H RBC 3.94 L Hgb 12.7 L Hct 38.6 MCV 98 H MCH 32.1 MCHC 32.8 RDW 14.1 H Plt Count 219 Magnesium 2.4 H 05/28/19 21:20 Fernandez Catheter Urine Culture - Final NO GROWTH 2 DAYS 05/28/19 19:55 Blood Blood Culture (PCR) - Final Staphylococcus Species 05/28/19 19:55 Blood Blood Culture - Final Staphylococcus Epidermidis 05/28/19 05/28/19 05/28/19 19:10 19:10 22:25 Troponin I 0.050 0.054 NT-Pro-B Natriuret Pep 2240 H Impressions: Chest X-Ray 05/28/19 19:34 IMPRESSION: No acute disease. copyright 2011 [employer]- All Rights Reserved Abdomen/Pelvis CT 05/28/19 20:11 IMPRESSION: High-grade distal small bowel obstruction with transition point in the mid pelvis, likely from mechanical bowel obstruction. KUB X-Ray 05/31/19 00:00 IMPRESSION: Appropriate position of nasogastric tube. Assessment and Plan - Diagnosis (1) Small bowel obstruction Is this a current diagnosis for this admission?: Yes Plan: 05/30: Repeat KUB shows persistent SBO pattern. Surgery following and ordered an enema cocktail/regimen. 05/31: Patient had one BM overnight. Repeat KUB shows persistent obstructive pattern. Surgery closely following. (2) Acute kidney injury (nontraumatic) Is this a current diagnosis for this admission?: Yes Plan: Resolving with IV fluids. (3) Progressive supranuclear palsy Is this a current diagnosis for this admission?: Yes - Time Time Spent with patient: 25-34 minutes
--- NOTE | 2019-05-31 20:01 | PDOC PROGRESS REPORT ---
Subjective Progress Note for:: 05/31/19 Subjective:: abdominal pains Reason For Visit: ACUTE BOWEL OBSTRUCTION,ACUTE URINARY RETENTION Physical Exam Vital Signs: Temp Pulse Resp BP Pulse Ox 99.5 F 116 H 20 165/80 H 97 05/31/19 15:46 05/31/19 16:18 05/31/19 16:18 05/31/19 15:46 05/31/19 16:18 Intake & Output 05/30/19 05/31/19 06/01/19 06:59 06:59 06:59 Intake Total 2650 3652 100 Output Total 2650 2350 700 Balance 0 1302 -600 Weight 78.6 kg 84.6 kg Exam: abdomen is soft with minimal tenderness. NG tube has decreased drainage. Results Laboratory Results: 05/31/19 05:20 05/30/19 05:50 05/31/19 05/31/19 05:20 05:20 WBC 13.2 H RBC 3.94 L Hgb 12.7 L Hct 38.6 MCV 98 H MCH 32.1 MCHC 32.8 RDW 14.1 H Plt Count 219 Magnesium 2.4 H 05/28/19 21:20 Fernandez Catheter Urine Culture - Final NO GROWTH 2 DAYS 05/28/19 19:55 Blood Blood Culture (PCR) - Final Staphylococcus Species 05/28/19 19:55 Blood Blood Culture - Final Staphylococcus Epidermidis 05/28/19 05/28/19 05/28/19 19:10 19:10 22:25 Troponin I 0.050 0.054 NT-Pro-B Natriuret Pep 2240 H Impressions: Chest X-Ray 05/28/19 19:34 IMPRESSION: No acute disease. copyright 2011 [employer]- All Rights Reserved Abdomen/Pelvis CT 05/28/19 20:11 IMPRESSION: High-grade distal small bowel obstruction with transition point in the mid pelvis, likely from mechanical bowel obstruction. KUB X-Ray 05/31/19 00:00 IMPRESSION: Appropriate position of nasogastric tube. Assessment & Plan - Diagnosis (1) Constipation due to neurogenic bowel Is this a current diagnosis for this admission?: Yes - Time Time Spent with patient: 15-24 minutes - Inpatient Certification Medical Necessity: Need Close Monitoring Due to Risk of Patient Decompensation, Need For IV Fluids - Plan Summary Plan Summary: Patient sent for a small bowel follow-through with Gastrografin the NG tube. Contrast appears to be going through the small bowel but further delayed film is needed to see if it goes into the colon. This was an unofficial reading. Meantime I will resume the 3,6,9 protocol for enema initially prescribed by Dr. Angel. He seems to have some response to this. I did a rectal exam on him recently and it showed no fecal impaction right at the rectal vault. We will get a follow-up KUB in the morning and keep NG tube to suction
[2019-05-31] MEDS ORDERED: METOPROLOL TARTRATE PF/INJ 5 MG/5 ML SDV IV ONE (23:30)
[2019-05-31] MEDS ORDERED: MORPHINE SULFATE 10 MG/ML INJ ONE (23:33)
[2019-05-31] MEDS ORDERED: LORAZEPAM INJ 2 MG/1 ML VIAL ONE (23:39)
[2019-05-31 23:56] LABS: ARTERIAL BLOOD BASE EXCESS 2.9 mmol/L; ARTERIAL BLOOD H2CO3 0.81 mmol/L (1.05-1.35); ARTERIAL BLOOD HCO3 23.7 mmol/L (20-24); ARTERIAL BLOOD O2 SATURATION 96.1 % (94-98); ARTERIAL BLOOD PCO2 26.9 mmHg (35-45); ARTERIAL BLOOD PH 7.56 (7.35-7.45); ARTERIAL BLOOD PO2 69.2 mmHg (80-100); ARTERIAL BLOOD TOTAL CO2 24.5 mmol/L (23-27)
[2019-05-31 23:59] LABS: ARTERIAL BLOOD FIO2 100%
[2019-06-01 00:02] LABS: HEMATOCRIT 43.4 % (37.9-51.0); HEMOGLOBIN 14.4 g/dL (13.5-17.0); MEAN CORPUSCULAR HGB CONC 33.1 g/dL (32.0-36.0); MEAN CORPUSCULAR VOLUME 97 fl (80-97); PLATELET COUNT 328 10^3/uL (150-450); RED BLOOD COUNT 4.48 10^6/uL (4.35-5.55); WHITE BLOOD COUNT 17.6 10^3/uL (4.0-10.5)
[2019-06-01 00:06] LABS: ALBUMIN 3.4 g/dL (3.5-5.0); ALKALINE PHOSPHATASE 80 U/L (38-126); ANION GAP 16 (5-19); ASPARTATE AMINO TRANSFERASE 58 U/L (17-59); BILIRUBIN,DIRECT 2.1 mg/dL (0.0-0.4); BILIRUBIN,TOTAL 3.3 mg/dL (0.2-1.3); BLOOD UREA NITROGEN 23 mg/dL (7-20); CALCIUM 9.2 mg/dL (8.4-10.2); CARBON DIOXIDE 21 mmol/L (22-30); CHLORIDE 114 mmol/L (98-107); CREATINE KINASE 106 U/L (55-170); GLUCOSE 125 mg/dL (75-110); POTASSIUM 3.6 mmol/L (3.6-5.0); TOTAL PROTEIN 6.3 g/dL (6.3-8.2)
[2019-06-01 00:18] LABS: CREATINE KINASE MB 0.74 ng/mL (<4.55); TROPONIN I 0.046 ng/mL
[2019-06-01 00:25] LABS: ABSOLUTE LYMPHOCYTES# (MANUAL) 0.5 10^3/uL (0.5-4.7); ABSOLUTE MONOCYTES # (MANUAL) 0.9 10^3/uL (0.1-1.4); BASOPHILS % (MANUAL) 0 % (0-2); EOSINOPHILS % (MANUAL) 0 % (0-6); LYMPHOCYTES % (MANUAL) 3 % (13-45); MONOCYTES % (MANUAL) 5 % (3-13); SEGMENTED NEUTROPHILS % (MAN) 92 % (42-78); TOTAL CELLS COUNTED 100
[2019-06-01 00:27] LABS: ANISOCYTOSIS SLIGHT; OVALOCYTES SLIGHT; PLATELET COMMENT ADEQUATE
--- NOTE | 2019-06-01 00:50 | RADIOLOGY REPORT (SQ) ---
XR CHEST 1 VIEW EXAM DATE: 05/31/2019 12:00 AM CDT HISTORY: Chest pain. COMPARISON: 05/28/2019 FINDINGS: The heart size is within normal limits. No consolidation, pleural effusion, or pneumothorax is seen. No acute bony findings. The support devices are stable. The right hemidiaphragm is elevated. IMPRESSION: No acute cardiopulmonary disease.
[2019-06-01] MEDS ORDERED: LORAZEPAM INJ 2 MG/1 ML VIAL IV ONE (01:00)
[2019-06-01] MEDS ORDERED: METOPROLOL TARTRATE PF/INJ 5 MG/5 ML SDV IV ONE ×3 (01:00→05:30)
[2019-06-01] MEDS ORDERED: MORPHINE SULFATE 10 MG/ML INJ IV ONE (01:00)
[2019-06-01] MEDS ORDERED: POTASSI CL 20 MEQ/1/2NS 1L 1000 ML IV ONE (01:00)
[2019-06-01] MEDS: PIPERACILLIN SODIUM/TAZOBACTAM 3.375 GM in NORMAL SALINE 100 ML IV SCH ×2 (01:07→06:59)
[2019-06-01] MEDS ORDERED: LACTULOSE SYRUP 20 GM/30 ML UDCUP PR ONE (01:15)
[2019-06-01 04:34] LABS: HEMATOCRIT 40.5 % (37.9-51.0); HEMOGLOBIN 13.5 g/dL (13.5-17.0); MEAN CORPUSCULAR HEMOGLOBIN 32.6 pg (27.0-33.4); MEAN CORPUSCULAR HGB CONC 33.4 g/dL (32.0-36.0); MEAN CORPUSCULAR VOLUME 98 fl (80-97); PLATELET COUNT 240 10^3/uL (150-450); RED BLOOD COUNT 4.15 10^6/uL (4.35-5.55); WHITE BLOOD COUNT 18.3 10^3/uL (4.0-10.5)
--- NOTE | 2019-06-01 04:40 | Progress Note ---
Provider Note Provider Note: Notified by patient's nurse of acute respiratory distress. Patient admitted with bowel obstructions and complications of terminal supra nuclear palsy anticipating transition to hospice in the a.m. Respiratory rate of 50, pulse oximetry of 80% on nonrebreather. Verified patient's CODE STATUS with family members who request a change to full code. The patient is transferred to the ICU, he appears awake, nonverbal restless, tremulous and uncomfortable. Tachypnea and tachycardia are persistent with coarse breath sounds. Concern for aspiration pneumonitis he receives IV Lopressor and morphine. NG tube placed to intermittent suction with immediate response aspirating 1.5 L of dark material. Review of medication reconciliation reveals benzodiazepine dependence temazepam 30 mg p.o. nightly discontinued on admission secondary to small bowel obstruction. IV Ativan ordered. Chest x-ray unremarkable, KUB is unchanged. Lactulose enema ordered. Patient's vitals stabilize over 60 minutes. Total critical care time 60 minutes Prognosis is poor given end-stage supra nuclear palsy with bowel obstruction. Patient's at bedside is updated.
[2019-06-01] MEDS ORDERED: GLYCERIN 99.5% (ANHYDROUS) 177 ML PR PRN (08:00)
[2019-06-01] MEDS ORDERED: MINERAL OIL ENEMA 133 ML PR PRN (08:00)
[2019-06-01] MEDS: ACETAMINOPHEN 650 MG SUPP.RECT PR PRN (08:28)
[2019-06-01] MEDS: IPRATROPIUM BROMIDE 0.02% NEB 0.5 MG/2.5 ML AMPUL NEB SCH ×2 (08:39→16:09)
[2019-06-01] MEDS: LEVALBUTEROL HCL NEB 1.25 MG/3 ML AMPUL NEB SCH ×2 (08:39→16:09)
[2019-06-01] MEDS: NALBUPHINE HCL INJ 10 MG/1 ML AMPULE IV PRN (08:55)
[2019-06-01] MEDS: MORPHINE SULFATE 10 MG/ML INJ IV PRN ×9 (10:36→22:27)
--- NOTE | 2019-06-01 10:59 | PDOC PROGRESS REPORT ---
Subjective Progress Note for:: 06/01/19 Subjective:: Patient transferred in the middle of the night secondary to worsening shortness of breath. There was a distinct concern because a limited neck flexion about the ability for intubation and he had been labeled as a difficult airway. Patient has progressive nuclear palsy and has had significant amount of aspiration events. He had an event which caused him to be admitted. He was in profound respiratory distress requiring BiPAP. Despite this as a therapy his respiratory rate still remains above 30 and he has use of abdominal muscles although this is weak as well. Patient intermittently will follow commands but cannot sustain this. He is unable to speak or phonate because of the BiPAP and because of weakness. He has been noted to aspirate with food items and liquids. He also presented with a small bowel obstruction. This appears to be getting worse with out movement of contrast into the large bowel. The large bowel has a significant amount of stool. Reason For Visit: ACUTE BOWEL OBSTRUCTION,ACUTE URINARY RETENTION Reason for ICU admission: acute respiratory distress requiring noninvasive ventilation with potential difficult airway Physical Exam Vital Signs: Temp Pulse Resp BP Pulse Ox 101.1 F H 109 H 34 H 142/82 H 99 06/01/19 04:00 06/01/19 02:00 06/01/19 04:04 06/01/19 00:06 06/01/19 04:04 Intake & Output 05/31/19 06/01/19 06/02/19 06:59 06:59 06:59 Intake Total 3652 300 Output Total 2350 780 Balance 1302 -480 Weight 84.6 kg Physical Exam: Chronically ill appearing week 74-year-old male in moderate respiratory distress. General appearance: PRESENT: well-developed, well-nourished, other - Moderate distress Head exam: PRESENT: atraumatic, normocephalic Eye exam: PRESENT: conjunctiva pink, PERRLA. ABSENT: conjunctival injection, EOMI, nystagmus, scleral icterus Mouth exam: PRESENT: dry mucosa Neck exam: ABSENT: carotid bruit, full ROM, JVD, lymphadenopathy, meningismus, thyromegaly, tracheal deviation Respiratory exam: PRESENT: accessory muscle use, decreased breath sounds, retraction, tachypnea. ABSENT: unlabored Cardiovascular exam: PRESENT: +S1, +S2, tachycardia. ABSENT: rubs, systolic murmur Pulses: PRESENT: +1 pedal pulses bilateral Vascular exam: PRESENT: normal capillary refill GI/Abdominal exam: PRESENT: diminished bowel sounds, distended, guarding, rebound, tenderness. ABSENT: ascites, firm, hernia, mass, Manzanares's sign, rigid, soft Rectal exam: PRESENT: deferred Gentrourinary exam: PRESENT: indwelling catheter Extremities exam: PRESENT: pedal edema. ABSENT: joint swelling Musculoskeletal exam: ABSENT: deformity, dislocation, tenderness Neurological exam: PRESENT: altered, motor sensory deficit - Has upper and lower extremity weakness. Does follow commands occassionally but unable to lift arms, legs. Babinski down going. Reflexes hyper-reflexic. Sensory respnse to noxious stimulus.. ABSENT: CN II-XII grossly intact Skin exam: PRESENT: dry, intact, normal color. ABSENT: abrasion, cyanosis, erythema, jaundice, mottled, pallor, petechiae, urticaria, vesicles Results Laboratory Results: 06/01/19 04:12 05/31/19 23:43 05/31/19 05/31/19 05/31/19 23:43 23:43 23:47 WBC 17.6 H RBC 4.48 Hgb 14.4 Hct 43.4 MCV 97 MCH 32.0 MCHC 33.1 RDW 14.0 Plt Count 328 Seg Neutrophils % Not Reportable Carbonic Acid 0.81 L HCO3/H2CO3 Ratio 29:1 ABG pH 7.56 H ABG pCO2 26.9 L ABG pO2 69.2 L ABG HCO3 23.7 ABG O2 Saturation 96.1 ABG Base Excess 2.9 FiO2 100% Sodium 150.7 H Potassium 3.6 Chloride 114 H Carbon Dioxide 21 L Anion Gap 16 BUN 23 H Creatinine 1.01 Est GFR ( Amer) > 60 Glucose 125 H Calcium 9.2 Magnesium Total Bilirubin 3.3 H AST 58 Alkaline Phosphatase 80 Total Protein 6.3 Albumin 3.4 L 06/01/19 06/01/19 04:12 04:12 WBC 18.3 H RBC 4.15 L Hgb 13.5 Hct 40.5 MCV 98 H MCH 32.6 MCHC 33.4 RDW 14.0 Plt Count 240 Seg Neutrophils % Carbonic Acid HCO3/H2CO3 Ratio ABG pH ABG pCO2 ABG pO2 ABG HCO3 ABG O2 Saturation ABG Base Excess FiO2 Sodium Potassium Chloride Carbon Dioxide Anion Gap BUN Creatinine Est GFR ( Amer) Glucose Calcium Magnesium 2.5 H Total Bilirubin AST Alkaline Phosphatase Total Protein Albumin 05/28/19 21:20 Fernandez Catheter Urine Culture - Final NO GROWTH 2 DAYS 05/28/19 19:55 Blood Blood Culture (PCR) - Final Staphylococcus Species 05/28/19 19:55 Blood Blood Culture - Final Staphylococcus Epidermidis 05/28/19 05/28/19 05/28/19 19:10 19:10 22:25 Creatine Kinase CK-MB (CK-2) Troponin I 0.050 0.054 NT-Pro-B Natriuret Pep 2240 H 05/31/19 05/31/19 23:43 23:43 Creatine Kinase 106 CK-MB (CK-2) 0.74 Troponin I 0.046 NT-Pro-B Natriuret Pep Impressions: Abdomen/Pelvis CT 05/28/19 20:11 IMPRESSION: High-grade distal small bowel obstruction with transition point in the mid pelvis, likely from mechanical bowel obstruction. Chest X-Ray 05/31/19 00:00 IMPRESSION: No acute cardiopulmonary disease. KUB X-Ray 05/31/19 00:00 IMPRESSION: Appropriate position of nasogastric tube. Assessment & Plan - Diagnosis (1) Acute respiratory failure with hypoxia and hypercapnia Is this a current diagnosis for this admission?: Yes (2) Small bowel obstruction Is this a current diagnosis for this admission?: Yes (3) Neuromuscular respiratory weakness Is this a current diagnosis for this admission?: Yes (4) Neuromuscular disease or syndrome Is this a current diagnosis for this admission?: Yes (5) Supranuclear palsies, progressive Is this a current diagnosis for this admission?: Yes - Time Time Spent with patient: 35 or more minutes Total Critical Time (Minutes): 70 Medications reviewed and adjusted accordingly: Yes Anticipated discharge: Other - Transition to comfort care Within: Other - Today - Inpatient Certification Based on my medical assessment, after consideration of the patient's comorbidities, presenting symptoms, or acuity I expect that the services needed warrant INPATIENT care.: Yes I certify that my determination is in accordance with my understanding of Medicare's requirements for reasonable and necessary INPATIENT services [42 CFR 412.3e].: Yes Medical Necessity: Need Close Monitoring Due to Risk of Patient Decompensation, Need For IV Fluids, Need for Pain Control, Risk of Complication if Not Cared For in Hospital Post Hospital Care: D/C Porcel[employer] Slusher Documentation - Plan Summary Plan Summary: Patient is in extremis. This point he would require intubation to protect his airway with mechanical ventilation. We are aware of the significant neck flexion issues with a risk for difficult intubation. We have the capability to perform an awake fiberoptic intubation however the problem will be the ability to wean the patient given his advanced neuromuscular disease in the face of an acute abdomen. On his x-ray there is significant amount of stool in 1 of the treatments could be a disimpacting colonoscopy. That being said his respiratory status is significantly worsened and this would still require intubation. Other option would be a diverting colostomy however this would require intubation. Al l of these ultimately end up with the final pathway of the requirement for intubation which although may be difficult the more difficult decision will be to attempt to liberate him. Had a lengthy discussion with his and extended family. Overall notable factors are evident. 1. His disease state has progressed and he is having difficulty swallowing and communicating. 2. His decline is worsening and his illness is terminal without any treatment options other than supportive. 3. His wishes were for no life-support such as Mechanical ventilation and no resuscitation family has also declared this. 4. Procedure for which the patient would require would result in the need for protection of his airway. Although we have the capability for forming fiberoptic intubation it is still risky. In addition as noted above the ability to liberate the patient from the ventilator would be prognostically and possible. I made a suggestion that the patient transition to comfort care and the family is very agreeable to this. Also spoke with the surgeon who is agreeable to this as well and feels that this would be in the patient's best interest. We are waiting family to arrive before transitioning to this. Have assured the family that we will protect the patient's dignity, humanity and wishes and will make sure he is not suffering. Patient seen in multidisciplinary rounds. Care of in ICU patient is ongoing and dynamic. This note represents a static representation of care in the last 12-24 hours. Orders given, completed and entered via computer are not always reflective of actual time done. Medical power of machine repairman is: Patient requires ICU care secondary to respiratory failure, now comfort care
[2019-06-01] MEDS: LORAZEPAM INJ 2 MG/1 ML VIAL IV PRN ×5 (11:59→20:26)
--- NOTE | 2019-06-01 16:06 | RADIOLOGY REPORT (SQ) ---
EXAM DESCRIPTION: SMALL BOWEL SERIES COMPLETED DATE/TIME: 06/01/2019 8:29 am REASON FOR STUDY: SBO COMPARISON: None. FLUOROSCOPY TIME: None 10 images saved to PACS. LIMITATIONS: None. PROCEDURE: Initial electronic scanner operator image of abdomen acquired, followed by administration of water-soluble oral contrast through an indwelling NG tube. Serial radiographic images acquired. All images stored on PACS. FINDINGS: BRASS PICKLER KUB: Extensive bowel distention. . STOMACH: Reflux seen throughout the study. Normal distention without abnormality. DUODENUM: Normal mucosal pattern with adequate distention. No displacement or obstruction. Small di verticulum. JEJUNUM: Normal mucosal pattern. Diffuse distension without segmentation, strictures or masses. ILEUM: Normal mucosal pattern. Diffuse distension without segmentation, strictures or masses. TERMINAL ILEUM AND ILEO-CECAL VALVE: Not assessed. PROXIMAL COLON: Un-opacification of the colon on the 22 hour delayed film OTHER: IMPRESSION: No oral contrast seen in the colon on the 22 hour delayed film, consistent with obstruct ion. COMMENT: None Quality ID [id number]: Final reports for procedures using fluoroscopy that document radiation exposure nedra sharmaine, or exposure time and number of fluorographic images (if radiation exposure indices are not avail able) TECHNICAL DOCUMENTATION: JOB ID: [id number] [employer]- All Rights Reserved Reading location - IP/workstation name: [email or web address] [id number]
[2019-06-01] MEDS ORDERED: MIDAZOLAM 2 MG/2 ML INJ ONE (16:27)
[2019-06-01] MEDS ORDERED: DIAZEPAM INJ 10 MG/2 ML DISP.SYRIN IV SCH (22:00)
[2019-06-02] MEDS: LORAZEPAM INJ 2 MG/1 ML VIAL IV PRN ×4 (00:39→23:39)
[2019-06-02] MEDS: MORPHINE SULFATE 10 MG/ML INJ IV PRN ×6 (01:22→22:07)
--- NOTE | 2019-06-02 16:35 | PDOC PROGRESS REPORT ---
Subjective Progress Note for:: 06/02/19 Subjective:: Patient was admitted from ICU last night. He has been made comfort measures in the ICU. No acute event overnight. Upon encounter, patient is slightly tachypneic. Co ntinue comfort measures. Discussed with and other members of the family on bedside. Discussed possibility of inpatient hospice depending on how the patient progresses in the next 24 to 48 hours. Reason For Visit: ACUTE BOWEL OBSTRUCTION,ACUTE URINARY RETENTION Physical Exam Vital Signs: Temp Pulse Resp BP Pulse Ox 97.3 F 77 22 H 100/60 92 06/01/19 21:46 06/01/19 21:46 06/01/19 21:46 06/01/19 21:46 06/01/19 21:46 Intake & Output 06/01/19 06/02/19 06/03/19 06:59 06:59 06:59 Intake Total 300 Output Total 3170 Balance -2870 Weight 174 lb 2.643 oz General appearance: ABSENT: cooperative Head exam: PRESENT: atraumatic, normocephalic Eye exam: PRESENT: conjunctiva pink, EOMI, PERRLA. ABSENT: scleral icterus Ear exam: PRESENT: normal external ear exam Mouth exam: PRESENT: moist, tongue midline Neck exam: ABSENT: carotid bruit, JVD, lymphadenopathy, thyromegaly Respiratory exam: PRESENT: rhonchi. ABSENT: clear to auscultation feliz Cardiovascular exam: PRESENT: RRR. ABSENT: diastolic murmur, rubs, systolic murmur Pulses: PRESENT: normal dorsalis pedis pul GI/Abdominal exam: ABSENT: distended Rectal exam: PRESENT: deferred Neurological exam: PRESENT: altered Results Laboratory Results: 06/01/19 04:12 05/31/19 23:43 05/28/19 05/28/19 05/28/19 19:10 19:10 22:25 Creatine Kinase CK-MB (CK-2) Troponin I 0.050 0.054 NT-Pro-B Natriuret Pep 2240 H 05/31/19 05/31/19 23:43 23:43 Creatine Kinase 106 CK-MB (CK-2) 0.74 Troponin I 0.046 NT-Pro-B Natriuret Pep Impressions: Abdomen/Pelvis CT 05/28/19 20:11 IMPRESSION: High-grade distal small bowel obstruction with transition point in the mid pelvis, likely from mechanical bowel obstruction. Chest X-Ray 05/31/19 00:00 IMPRESSION: No acute cardiopulmonary disease. KUB X-Ray 05/31/19 00:00 IMPRESSION: Appropriate position of nasogastric tube. Small Bowel X-Ray 05/31/19 00:00 IMPRESSION: No oral contrast seen in the colon on the 22 hour delayed film, consistent with obstruction. Assessment and Plan - Diagnosis (1) Small bowel obstruction Is this a current diagnosis for this admission?: Yes Plan: Now on comfort measures. (2) Acute kidney injury (nontraumatic) Is this a current diagnosis for this admission?: Yes Plan: Resolved with IV fluids. (3) Progressive supranuclear palsy Is this a current diagnosis for this admission?: Yes Plan: Now on comfort measures. - Time Time Spent with patient: 15-24 minutes
[2019-06-03] MEDS: MORPHINE SULFATE 10 MG/ML INJ IV PRN ×4 (00:25→15:31)
[2019-06-03] MEDS: LORAZEPAM INJ 2 MG/1 ML VIAL IV PRN (05:47)
--- NOTE | 2019-06-03 12:30 | RADIOLOGY REPORT (SQ) ---
EXAM DESCRIPTION: KUB/ABDOMEN (SINGLE VIEW) COMPLETED DATE/TIME: 06/03/2019 11:54 am REASON FOR STUDY: reassess SBO pattern COMPARISON: 05/31/2019. NUMBER OF VIEWS: One view. TECHNIQUE: Supine radiographic image of the abdomen acquired. LIMITATIONS: None. FINDINGS: BOWEL GAS PATTERN: There is contrast noted throughout the colon to the rectum. Since the previous study of 05/31/2019 there has been marked decrease in small bowel distention consistent with resolving small bowel obstruction. CALCIFICATIONS: No suspicious calcifications. SOFT TISSUES: No gross mass or suggestion of organomegaly. HARDWARE: Changes of median sternotomy. BONES: Lumbar spondylosis. OTHER: Radiopaque line overlying pelvis. IMPRESSION: Findings consistent with resolving small bowel obstruction. TECHNICAL DOCUMENTATION: JOB ID: [id number] [employer]- All Rights Reserved Reading location - IP/workstation name: [email or web address]
--- NOTE | 2019-06-03 14:58 | RADIOLOGY REPORT (SQ) ---
EXAM DESCRIPTION: CHEST SINGLE VIEW COMPLETED DATE/TIME: 06/03/2019 2:45 pm REASON FOR STUDY: assess for aspiration pna COMPARISON: 05/31/2019 EXAM PARAMETERS: NUMBER OF VIEWS: One view. TECHNIQUE: Single frontal radiographic view of the chest acquired. RADIATION DOSE: NA LIMITATIONS: None. FINDINGS: LUNGS AND PLEURA: No opacities, masses or pneumothorax. No pleural effusion. MEDIASTINUM AND HILAR STRUCTURES: No masses. Contour normal. HEART AND VASCULAR STRUCTURES: Status post median sternotomy. BONES: No acute findings. HARDWARE: None in the chest. OTHER: No other significant finding. IMPRESSION: No acute abnormality of the lungs in frontal projection. No focal airspace opacity. Pl ease note that acute aspirate may be radiographically inapparent. Consider follow-up radiographs in 1 to 2 days to evaluate for interval evolution of airspace disease if aspiration is suspected. TECHNICAL DOCUMENTATION: JOB ID: [id number] [employer]- All Rights Reserved Reading location - IP/workstation name: [email or web address]
--- NOTE | 2019-06-03 15:12 | PDOC PROGRESS REPORT ---
Subjective Progress Note for:: 06/03/19 Subjective:: Patient was admitted from ICU last night. He has been made comfort measures in the ICU. 06/02: No acute event overnight. Upon encounter, patient is slightly tachypne ic. Continue comfort measures. Discussed with and other members of the family on bedside. Discussed possibility of inpatient hospice depending on how the patient progresses in the next 24 to 48 hours. 06/03: Patient had a large nonbloody bowel movement earlier this morning. Family expressed that if this is a possible sign that the bowel obstruction is clearing, they intend to rescind the comfort measures. We discussed this in length with patient's on bedside and daughter on the phone. Family expressed they want to resume him on IV fluids and IV antibiotics if needed. Family requested to repeat an abdominal imaging. Will order a KUB. They have expressed they will keep him DNR/DNI but intends to revoke the comfort measures depending on the KUB result. Reason For Visit: ACUTE BOWEL OBSTRUCTION,ACUTE URINARY RETENTION Physical Exam Vital Signs: Temp Pulse Resp BP Pulse Ox 101.1 F H 136 H 17 101/70 83 L 06/02/19 20:10 06/02/19 20:10 06/02/19 23:49 06/02/19 23:49 06/02/19 20:10 General appearance: PRESENT: other - sedated Head exam: PRESENT: atraumatic, normocephalic Eye exam: PRESENT: conjunctiva pink, EOMI, PERRLA. ABSENT: scleral icterus Ear exam: PRESENT: normal external ear exam Mouth exam: PRESENT: moist, tongue midline Neck exam: ABSENT: carotid bruit, JVD, lymphadenopathy, thyromegaly Respiratory exam: PRESENT: clear to auscultation feliz. ABSENT: rales, rhonchi, wheezes Cardiovascular exam: PRESENT: RRR. ABSENT: diastolic murmur, rubs, systolic murmur Pulses: PRESENT: normal dorsalis pedis pul GI/Abdominal exam: PRESENT: soft. ABSENT: distended, guarding, mass, organolmegaly, rebound, tenderness Rectal exam: PRESENT: deferred Neurological exam: PRESENT: altered. ABSENT: motor sensory deficit Results Laboratory Results: 06/01/19 04:12 05/31/19 23:43 05/28/19 20:32 Blood Blood Culture - Final NO GROWTH IN 5 DAYS 05/28/19 05/28/19 05/28/19 19:10 19:10 22:25 Creatine Kinase CK-MB (CK-2) Troponin I 0.050 0.054 NT-Pro-B Natriuret Pep 2240 H 05/31/19 05/31/19 23:43 23:43 Creatine Kinase 106 CK-MB (CK-2) 0.74 Troponin I 0.046 NT-Pro-B Natriuret Pep Impressions: Abdomen/Pelvis CT 05/28/19 20:11 IMPRESSION: High-grade distal small bowel obstruction with transition point in the mid pelvis, likely from mechanical bowel obstruction. Chest X-Ray 05/31/19 00:00 IMPRESSION: No acute cardiopulmonary disease. KUB X-Ray 05/31/19 00:00 IMPRESSION: Appropriate position of nasogastric tube. Small Bowel X-Ray 05/31/19 00:00 IMPRESSION: No oral contrast seen in the colon on the 22 hour delayed film, consistent with obstruction. Assessment and Plan - Diagnosis (1) Small bowel obstruction Is this a current diagnosis for this admission?: Yes Plan: 06/02: Now on comfort measures from ICU. 06/03: Patient had a large nonbloody bowel movement earlier this morning. Family expressed that if this is a possible sign that the bowel obstruction is clearing, they intend to rescind the comfort measures. We discussed this in length with patient's on bedside and daughter on the phone. Family expr essed they want to resume him on IV fluids and IV antibiotics if needed. Family requested to repeat an abdominal imaging. Will order a KUB. They have expressed they will keep him DNR/DNI but intends to revoke the comfort measures depending on the KUB result. (2) Acute kidney injury (nontraumatic) Is this a current diagnosis for this admission?: Yes Plan: Resolved with IV fluids. (3) Progressive supranuclear palsy Is this a current diagnosis for this admission?: Yes Plan: Now on comfort measures. - Time Time Spent with patient: 25-34 minutes
[2019-06-03] MEDS ORDERED: NORMAL SALINE 1000 ML 1,000 ML IV PRN (17:14)
[2019-06-03] MEDS ORDERED: SODIUM CHLORIDE NASAL SPRAY 44 ML NASL PRN (17:15)
[2019-06-03 17:22] LABS: HEMATOCRIT 39.3 % (37.9-51.0); HEMOGLOBIN 12.9 g/dL (13.5-17.0); MEAN CORPUSCULAR HEMOGLOBIN 32.3 pg (27.0-33.4); MEAN CORPUSCULAR HGB CONC 32.9 g/dL (32.0-36.0); MEAN CORPUSCULAR VOLUME 98 fl (80-97); PLATELET COUNT 256 10^3/uL (150-450); RED BLOOD COUNT 3.99 10^6/uL (4.35-5.55); RED CELL DISTRIBUTION WIDTH 14.8 % (11.5-14.0); WHITE BLOOD COUNT 19.4 10^3/uL (4.0-10.5)
[2019-06-03 17:41] LABS: ABSOLUTE LYMPHOCYTES# (MANUAL) 0.8 10^3/uL (0.5-4.7); ABSOLUTE MONOCYTES # (MANUAL) 1.7 10^3/uL (0.1-1.4); ANION GAP 9 (5-19); BASOPHILS % (MANUAL) 0 % (0-2); BLOOD UREA NITROGEN 26 mg/dL (7-20); CALCIUM 8.2 mg/dL (8.4-10.2); CARBON DIOXIDE 26 mmol/L (22-30); CHLORIDE 123 mmol/L (98-107); EOSINOPHILS % (MANUAL) 2 % (0-6); GLUCOSE 101 mg/dL (75-110); LYMPHOCYTES % (MANUAL) 4 % (13-45); MONOCYTES % (MANUAL) 9 % (3-13); POTASSIUM 3.7 mmol/L (3.6-5.0); SEGMENTED NEUTROPHILS % (MAN) 85 % (42-78); TOTAL CELLS COUNTED 100
[2019-06-03 17:42] LABS: ANISOCYTOSIS SLIGHT
[2019-06-03 17:43] LABS: PLATELET COMMENT ADEQUATE
[2019-06-03] MEDS: 1/2 NORMAL SALINE 1,000 ML IV PRN (19:00)
[2019-06-04] MEDS: 1/2 NORMAL SALINE 1,000 ML IV PRN ×3 (03:19→18:31)
[2019-06-04] MEDS: MORPHINE SULFATE 10 MG/ML INJ IV PRN ×2 (03:19→15:52)
[2019-06-04 05:16] LABS: ABSOLUTE BASOPHILS # (AUTO) 0.1 10^3/uL (0.0-0.2); ABSOLUTE LYMPHOCYTES (AUTO) 1.5 10^3/uL (0.5-4.7); ABSOLUTE MONOCYTES (AUTO) 1.6 10^3/uL (0.1-1.4); ABSOLUTE NEUT (AUTO) 14.1 10^3/uL (1.7-8.2); BASOPHILS % (AUTO) 0.8 % (0-2); EOSINOPHILS % (AUTO) 0.2 % (0-6); HEMATOCRIT 37.3 % (37.9-51.0); HEMOGLOBIN 12.2 g/dL (13.5-17.0); LYMPHOCYTES % (AUTO) 8.7 % (13-45); MEAN CORPUSCULAR HEMOGLOBIN 32.3 pg (27.0-33.4); MEAN CORPUSCULAR HGB CONC 32.6 g/dL (32.0-36.0); MEAN CORPUSCULAR VOLUME 99 fl (80-97); MONOCYTES % (AUTO) 9.2 % (3-13); PLATELET COUNT 233 10^3/uL (150-450); RED BLOOD COUNT 3.77 10^6/uL (4.35-5.55); RED CELL DISTRIBUTION WIDTH 14.8 % (11.5-14.0); SEGMENTED NEUTROPHILS % (AUTO) 81.1 % (42-78); TOTAL CELLS COUNTED % (AUTO) 100 %; WHITE BLOOD COUNT 17.4 10^3/uL (4.0-10.5)
[2019-06-04 05:35] LABS: ANION GAP 8 (5-19); BLOOD UREA NITROGEN 23 mg/dL (7-20); CARBON DIOXIDE 28 mmol/L (22-30); CHLORIDE 120 mmol/L (98-107); GLUCOSE 98 mg/dL (75-110); POTASSIUM 3.4 mmol/L (3.6-5.0)
--- NOTE | 2019-06-04 08:57 | RADIOLOGY REPORT (SQ) ---
EXAM DESCRIPTION: KUB/ABDOMEN (SINGLE VIEW) COMPLETED DATE/TIME: 06/04/2019 8:37 am REASON FOR STUDY: reassess obstruction COMPARISON: AP supine views of the abdomen from 06/03/2019 NUMBER OF VIEWS: One view. TECHNIQUE: Supine radiographic image of the abdomen acquired. LIMITATIONS: None. FINDINGS: BOWEL GAS PATTERN: There air-filled loops last distended loops of small bowel in the mid a bdomen that measure up to 4.1 cm in diameter. There is also fecal material throughout the colon to t he level of the rectum. There is no pneumatosis or portal venous gas. CALCIFICATIONS: No calcifications. SOFT TISSUES: No abnormality. HARDWARE: Fernandez catheter in place. BONES: No acute findings. OTHER: No other finding. IMPRESSION: Unchanged radiographic appearance of the abdomen with air-filled/distended loops of smal l bowel in the mid abdomen that measure up to 4.1 cm in diameter. TECHNICAL DOCUMENTATION: JOB ID: [id number] [employer]- All Rights Reserved Reading location - IP/workstation name: [email or web address]
--- NOTE | 2019-06-04 11:08 | RADIOLOGY REPORT (SQ) ---
EXAM DESCRIPTION: CHEST SINGLE VIEW COMPLETED DATE/TIME: 06/04/2019 10:44 am REASON FOR STUDY: reassess for aspiration pneumonia COMPARISON: None. EXAM PARAMETERS: NUMBER OF VIEWS: One view. TECHNIQUE: Single frontal radiographic view of the chest acquired. RADIATION DOSE: NA LIMITATIONS: None. FINDINGS: LUNGS AND PLEURA: Asymmetric left retrocardiac opacity that could represent atelectasis or pneumonia. There is no sizable pleural effusion or pneumothorax. MEDIASTINUM AND HILAR STRUCTURES: Stable mediastinal and hilar contours. HEART AND VASCULAR STRUCTURES: The cardiac silhouette and pulmonary vasculature are within normal mendoza its. BONES: No acute findings. HARDWARE: Median sternotomy wires. OTHER: No other finding. IMPRESSION: Asymmetric opacity in the left retrocardiac space that could represent atelectasis or pn eumonia. Correlation with clinical findings is recommended. TECHNICAL DOCUMENTATION: JOB ID: [id number] [employer]- All Rights Reserved Reading location - IP/workstation name: [email or web address]
--- NOTE | 2019-06-04 13:47 | PDOC PROGRESS REPORT ---
Subjective Progress Note for:: 06/04/19 Subjective:: Patient was admitted from ICU last night. He has been made comfort measures in the ICU. 06/02: No acute event overnight. Upon encounter, patient is slightly tachypne ic. Continue comfort measures. Discussed with and other members of the family on bedside. Discussed possibility of inpatient hospice depending on how the patient progresses in the next 24 to 48 hours. 06/03: Patient had a large nonbloody bowel movement earlier this morning. Family expressed that if this is a possible sign that the bowel obstruction is clearing, they intend to rescind the comfort measures. We discussed this in length with patient's on bedside and daughter on the phone. Family expressed they want to resume him on IV fluids and IV antibiotics if needed. Family requested to repeat an abdominal imaging. Will order a KUB. They have expressed they will keep him DNR/DNI but intends to revoke the comfort measures depending on the KUB result. 06/04: Patient had another regular BM earlier this morning. Repeat KUB does show improvement in the obstruction. Family including daughter and have expressed about possibly revoking comfort measures. They requested more time to further discuss this with the rest of the family and hopefully come up with a final decision later today. Reason For Visit: ACUTE BOWEL OBSTRUCTION,ACUTE URINARY RETENTION Physical Exam Vital Signs: Temp Pulse Resp BP Pulse Ox 98.4 F 93 40 H 137/71 H 91 L 06/04/19 08:24 06/04/19 08:24 06/04/19 08:24 06/04/19 08:24 06/04/19 08:24 Intake & Output 06/03/19 06/04/19 06/05/19 06:59 06:59 06:59 Intake Total 1060 1000 Output Total 1375 0 Balance -315 1000 General appearance: PRESENT: well-nourished Head exam: PRESENT: atraumatic, normocephalic Eye exam: PRESENT: conjunctiva pink, EOMI, PERRLA. ABSENT: scleral icterus Ear exam: PRESENT: normal external ear exam Mouth exam: PRESENT: moist, tongue midline Neck exam: ABSENT: carotid bruit, JVD, lymphadenopathy, thyromegaly Respiratory exam: PRESENT: rhonchi. ABSENT: rales, wheezes Cardiovascular exam: PRESENT: RRR. ABSENT: diastolic murmur, rubs, systolic murmur Pulses: PRESENT: normal dorsalis pedis pul GI/Abdominal exam: PRESENT: normal bowel sounds, soft. ABSENT: distended, guarding, mass, organolmegaly, rebound, tenderness Rectal exam: PRESENT: deferred Extremities exam: PRESENT: full ROM. ABSENT: calf tenderness, clubbing, pedal edema Neurological exam: PRESENT: altered Results Laboratory Results: 06/04/19 04:45 06/04/19 04:45 06/03/19 06/03/19 06/03/19 17:10 17:10 19:25 WBC 19.4 H RBC 3.99 L Hgb 12.9 L Hct 39.3 MCV 98 H MCH 32.3 MCHC 32.9 RDW 14.8 H Plt Count 256 Seg Neutrophils % Not Reportable Sodium 158.3 H Potassium 3.7 Chloride 123 H Carbon Dioxide 26 Anion Gap 9 BUN 26 H Creatinine 0.84 Est GFR ( Amer) > 60 Glucose 101 Lactic Acid 1.2 Calcium 8.2 L 06/04/19 06/04/19 04:45 04:45 WBC 17.4 H RBC 3.77 L Hgb 12.2 L Hct 37.3 L MCV 99 H MCH 32.3 MCHC 32.6 RDW 14.8 H Plt Count 233 Seg Neutrophils % 81.1 H Sodium 156.0 H Potassium 3.4 L Chloride 120 H Carbon Dioxide 28 Anion Gap 8 BUN 23 H Creatinine 0.77 Est GFR ( Amer) > 60 Glucose 98 Lactic Acid Calcium 8.0 L 05/28/19 05/28/19 05/28/19 19:10 19:10 22:25 Creatine Kinase CK-MB (CK-2) Troponin I 0.050 0.054 NT-Pro-B Natriuret Pep 2240 H 05/31/19 05/31/19 23:43 23:43 Creatine Kinase 106 CK-MB (CK-2) 0.74 Troponin I 0.046 NT-Pro-B Natriuret Pep Impressions: Abdomen/Pelvis CT 05/28/19 20:11 IMPRESSION: High-grade distal small bowel obstruction with transition point in the mid pelvis, likely from mechanical bowel obstruction. Small Bowel X-Ray 05/31/19 00:00 IMPRESSION: No oral contrast seen in the colon on the 22 hour delayed film, consistent with obstruction. Chest X-Ray 06/04/19 00:00 IMPRESSION: Asymmetric opacity in the left retrocardiac space that could represent atelectasis or pneumonia. Correlation with clinical findings is recommended. KUB X-Ray 06/04/19 07:00 IMPRESSION: Unchanged radiographic appearance of the abdomen with air- filled/distended loops of small bowel in the mid abdomen that measure up to 4.1 cm in diameter. Assessment and Plan - Diagnosis (1) Small bowel obstruction Is this a current diagnosis for this admission?: Yes Plan: 06/02: Now on comfort measures from ICU. 06/03: Patient had a large nonbloody bowel movement earlier this morning. Family expressed that if this is a possible sign that the bowel obstruction is clearing, they intend to rescind the comfort measures. We discussed this in length with patient's on bedside and daughter on the phone. Family expre ssed they want to resume him on IV fluids and IV antibiotics if needed. Family requested to repeat an abdominal imaging. Will order a KUB. They have expressed they will keep him DNR/DNI but intends to revoke the comfort measures depending on the KUB result. 06/04: Patient had another regular BM earlier this morning. Repeat KUB does show improvement in the obstruction. Family including daughter and have expressed about possibly revoking comfort measures. They requested more time to further discuss this with the rest of the family and hopefully come up with a final decision later today. (2) Acute kidney injury (nontraumatic) Is this a current diagnosis for this admission?: Yes Plan: Resolved with IV fluids. (3) Progressive supranuclear palsy Is this a current diagnosis for this admission?: Yes (4) Hypernatremia Is this a current diagnosis for this admission?: Yes Plan: Patient has been restarted on IV fluids with half-normal saline per family's request.
[2019-06-04] MEDS: LEVOFLOXACIN 750 MG/D5W RTU 750 MG/150 ML RTUPB IV SCH (15:52)
[2019-06-04] MEDS ORDERED: LORAZEPAM INJ 2 MG/1 ML VIAL IV PRN (18:43)
--- NOTE | 2019-06-04 18:51 | Progress Note ---
Provider Note Provider Note: Rediscussed in length with patient's family including DPOA/ and Ciarra/daughter (works at [employer]). They expressed that they have discussed in length with the rest of the family and that they have decided to rescind the comfort measures for now as patient continues to have regular bowel movements and that the bowel obstruction is improving. They asked that he be restarted on IV fluids and antibiotics. He will remain a DNR/DNI. IV fluids have been restarted. His chest x-ray shows questionable left lower lobe pneumonia versus atelectasis. He does have leukocytosis. Will restart patient on levofloxacin. He did have hypoxic episodes early this morning in the 80s. Discussed benefits and risks of pursuing a chest CTA as well as patient was off VTE prophylaxis and has been having hypoxic episodes. Recommend to hold off on this until patient is rehydrated. Family expressed agreement. Emphasized to the family that with his progressive supranuclear palsy, patient is still appropriate for home hospice later. Family verbalizes understanding and says that they want to resume previous treatments to see if he could go back to his baseline now that the SBO is somehow resolving.
[2019-06-04] MEDS: IPRATROPIUM/ALBUTEROL 0.5-2.5 MG/3 ML AMPUL NEB SCH (19:52)
[2019-06-04] MEDS: HEPARIN SOD (PORCINE) 5,000 UNIT/ML 1 ML VIAL SUBCUT SCH (22:00)
[2019-06-05] MEDS: 1/2 NORMAL SALINE 1,000 ML IV PRN ×3 (01:12→06:29)
[2019-06-05] MEDS: IPRATROPIUM/ALBUTEROL 0.5-2.5 MG/3 ML AMPUL NEB SCH ×4 (02:32→19:42)
[2019-06-05 06:02] LABS: ANION GAP 5 (5-19); BLOOD UREA NITROGEN 21 mg/dL (7-20); CALCIUM 7.8 mg/dL (8.4-10.2); CARBON DIOXIDE 23 mmol/L (22-30); CHLORIDE 121 mmol/L (98-107); GLUCOSE 98 mg/dL (75-110); POTASSIUM 3.6 mmol/L (3.6-5.0)
[2019-06-05] MEDS: MORPHINE SULFATE 10 MG/ML INJ IV PRN (06:19)
[2019-06-05] MEDS: HEPARIN SOD (PORCINE) 5,000 UNIT/ML 1 ML VIAL SUBCUT SCH ×3 (06:20→21:45)
[2019-06-05] MEDS ORDERED: DEXTROSE 5%-1/2 NORMAL SALINE 1,000 ML IV PRN ×2 (09:23→09:28)
[2019-06-05] MEDS ORDERED: HYDRALAZINE HCL INJ/PF 20 MG/1 ML SDV IV PRN (09:30)
[2019-06-05] MEDS ORDERED: METOPROLOL TARTRATE PF/INJ 5 MG/5 ML SDV IV PRN (09:30)
[2019-06-05] MEDS ORDERED: (PENDING PHARMACY ID) (Guaifenesin [Mucinex] 600 MG) PO SCH (10:00)
[2019-06-05] MEDS ORDERED: ACETYLCYSTEINE 20% SOLN 800 MG/4 ML VIAL.NEB NEB ONE (10:00)
[2019-06-05] MEDS ORDERED: RAMIPRIL 10 MG CAPSULE PO SCH (10:00)
[2019-06-05 10:44] LABS: ARTERIAL BLOOD BASE EXCESS -0.6 mmol/L; ARTERIAL BLOOD H2CO3 0.92 mmol/L (1.05-1.35); ARTERIAL BLOOD HCO3 22.2 mmol/L (20-24); ARTERIAL BLOOD O2 SATURATION 96.1 % (94-98); ARTERIAL BLOOD PCO2 30.7 mmHg (35-45); ARTERIAL BLOOD PH 7.48 (7.35-7.45); ARTERIAL BLOOD PO2 75.4 mmHg (80-100); ARTERIAL BLOOD TOTAL CO2 23.1 mmol/L (23-27)
[2019-06-05 10:52] LABS: ARTERIAL BLOOD FIO2 2L
[2019-06-05] MEDS ORDERED: ALBUTEROL SULFATE 0.083% NEB 2.5 MG/3 ML AMPUL NEB ONE (11:00)
[2019-06-05] MEDS: ASPIRIN 81 MG TABLET, CHEWABLE PO SCH (11:13)
[2019-06-05] MEDS: POLYETHYLENE GLYCOL 3350 POWDER 17 GM/1 PACKET PO SCH (11:13)
[2019-06-05] MEDS: HYDROCODONE/ACETAMINOPHEN 5-325 MG TABLET PO SCH ×2 (11:13→21:30)
[2019-06-05] MEDS: RAMIPRIL 5 MG CAPSULE PO SCH (11:13)
[2019-06-05] MEDS: AMLODIPINE BESYLATE 5 MG TABLET PO SCH (11:13)
[2019-06-05] MEDS: FAMOTIDINE 20 MG TABLET PO SCH ×2 (11:14→17:19)
[2019-06-05] MEDS: SCOPOLAMINE HYDROBROMIDE 1.5 MG PATCH.TD72 TD SCH (11:19)
[2019-06-05] MEDS: DULOXETINE HCL 30 MG CAPSULE.DR PO SCH (11:57)
[2019-06-05] MEDS: GUAIFENESIN 600 MG TABLET.SA PO SCH ×2 (11:57→17:18)
[2019-06-05] MEDS ORDERED: DEXTROSE 10%-WATER 1,000 ML IV PRN ×2 (12:23→17:11)
[2019-06-05] MEDS: FUROSEMIDE INJ/PF 20 MG/2 ML SDV IV SCH ×2 (13:10→21:42)
--- NOTE | 2019-06-05 14:36 | PDOC PROGRESS REPORT ---
Subjective Progress Note for:: 06/05/19 Subjective:: SURYA ALEXIS is a 74 year old male who presents the emergency room via EMS with his family complaining of a cough. Patient has supranuclear palsy and is unable to assist with the communication of his history. Family members admit that he has had a recently increased cough with decreased oral intake and one episode of vomiting at home prior to transport to the ER. EMS reported finding a fever of 101 F at the time of transport. In the emergency room patient was found to have an elevated lactic acid, tachycardia, leukocytosis, fever, radiographic evidence of a bowel obstruction and acute urinary retention. Patient was treated with IV fluids, Fernandez catheter and an NG tube was placed. He was started on Zosyn as antibiotic therapy and was subsequently admitted to the hospital service for further evaluation treatment. 06/05/2019. Patient CODE STATUS has been changed from NIKE ATHLETE to DNR/DNI per family as patient is having normal bowel movements. Overnight patient was noted to have developed tachypnea and lower upper extremity swelling. Advised patient is not communicative however is present at bedside and daughter is on the phone while I am inpatient. They are very concerned about the fact that patient is having tachypnea, and they want us to rule out PE, but also wants to start TPN as patient is not able to eat. I have advised patient family that is better to involve speech therapy to see if patient could eat on his own instead of hav ing TPN which have multiple complications. Patient's family is agreeable with the plan at this point. They want patient to be transferred to rehab once he is stable enough. Reason For Visit: ACUTE BOWEL OBSTRUCTION,ACUTE URINARY RETENTION Physical Exam Vital Signs: Temp Pulse Resp BP Pulse Ox 98.3 F 89 38 H 170/87 H 93 06/05/19 07:14 06/05/19 09:30 06/05/19 09:30 06/05/19 07:14 06/05/19 09:30 Intake & Output 06/04/19 06/05/19 06/06/19 06:59 06:59 06:59 Intake Total 1060 3935 0 Output Total 1375 450 275 Balance -315 3485 -275 General appearance: PRESENT: mild distress Head exam: PRESENT: atraumatic, normocephalic Respiratory exam: PRESENT: clear to auscultation feliz, symmetrical, tachypnea. ABSENT: rales, rhonchi, wheezes Cardiovascular exam: PRESENT: RRR. ABSENT: diastolic murmur, rubs, systolic murmur GI/Abdominal exam: PRESENT: normal bowel sounds, soft. ABSENT: distended, guarding, mass, organolmegaly, rebound, tenderness Neurological exam: PRESENT: alert, awake. ABSENT: motor sensory deficit Results Laboratory Results: 06/04/19 04:45 06/05/19 05:21 06/05/19 06/05/19 05:21 10:12 Carbonic Acid 0.92 L HCO3/H2CO3 Ratio 24:1 ABG pH 7.48 H ABG pCO2 30.7 L ABG pO2 75.4 L ABG HCO3 22.2 ABG O2 Saturation 96.1 ABG Base Excess -0.6 FiO2 2L Sodium 148.5 H Potassium 3.6 Chloride 121 H Carbon Dioxide 23 Anion Gap 5 BUN 21 H Creatinine 0.68 Est GFR ( Amer) > 60 Glucose 98 Calcium 7.8 L 05/28/19 05/28/19 05/28/19 19:10 19:10 22:25 Creatine Kinase CK-MB (CK-2) Troponin I 0.050 0.054 NT-Pro-B Natriuret Pep 2240 H 05/31/19 05/31/19 23:43 23:43 Creatine Kinase 106 CK-MB (CK-2) 0.74 Troponin I 0.046 NT-Pro-B Natriuret Pep Impressions: Abdomen/Pelvis CT 05/28/19 20:11 IMPRESSION: High-grade distal small bowel obstruction with transition point in the mid pelvis, likely from mechanical bowel obstruction. Small Bowel X-Ray 05/31/19 00:00 IMPRESSION: No oral contrast seen in the colon on the 22 hour delayed film, consistent with obstruction. Chest X-Ray 06/04/19 00:00 IMPRESSION: Asymmetric opacity in the left retrocardiac space that could represent atelectasis or pneumonia. Correlation with clinical findings is recommended. KUB X-Ray 06/04/19 07:00 IMPRESSION: Unchanged radiographic appearance of the abdomen with air- filled/distended loops of small bowel in the mid abdomen that measure up to 4.1 cm in diameter. Assessment and Plan - Diagnosis (1) Small bowel obstruction Is this a current diagnosis for this admission?: Yes Plan: Resolved. Normal bowel movements. Initially was transferred to ICU. Surgery consulted. No surgical intervention was done. 06/03/2019 had a large bloody bowel movement. 06/04/2019 had regular bowel movement. KUB showed improvement of the obstruction. Family rescinded NIKE ATHLETE status. Continue supportive measures. Monitor vitals. (2) Acute exacerbation of CHF (congestive heart failure) Qualifiers: Heart failure type: unspecified Qualified Code(s): I50.9 - Heart failure, unspecified Is this a current diagnosis for this admission?: Yes Plan: Likely due to aggressive volume resuscitation for underlying hypernatremia and CAD medications were on hold. DC IV fluids given, IV Lasix, restart GLENN, cardiac diet. Pending BMP. (3) CAD (coronary artery disease) of artery bypass graft Qualifiers: Associated angina: without angina Is this a current diagnosis for this admission?: Yes Plan: History of CABG. Continue antiplatelets, beta-blockers and GLENN. Allergic to statins. (4) Acute kidney injury (nontraumatic) Is this a current diagnosis for this admission?: Yes Plan: Resolved with IV fluids. (5) Hypernatremia Is this a current diagnosis for this admission?: Yes Plan: Improving. Patient's NIKE ATHLETE status has been rescinded by family. Currently DNR/DNI. Continue cardiac diet, IV Lasix, monitor for seizure. Sodium level tomorrow. (6) Progressive supranuclear palsy Is this a current diagnosis for this admission?: Yes Plan: DNR/DNR status. Continue supportive measures. (7) Acute respiratory failure Qualifiers: Respiratory failure complication: unspecified whether with hypoxia or hypercapnia Qualified Code(s): J96.00 - Acute respiratory failure, unspecified whether with hypoxia or hypercapnia Is this a current diagnosis for this admission?: Yes Plan: Likely due to aggressive volume resuscitation or possibly DVT as patient was NIKE ATHLETE and his DVT prophylaxis were on hold. Continue supplemental oxygen, duo nebs, PRN BiPAP. IV Lasix, cardiac diet, strict in and out. Pending V/Q scan to rule out PE.
--- NOTE | 2019-06-05 14:41 | RADIOLOGY REPORT (SQ) ---
EXAM DESCRIPTION: NM LUNG PERFUSION SCAN COMPLETED DATE/TIME: 06/05/2019 2:32 pm REASON FOR STUDY: tachypnea, r/o PE COMPARISON: Same day chest radiograph RADIONUCLIDE AND DOSE: 5.44 millicuries TC-99m MAA The route of agent administration: Intravenous TECHNIQUE: Eight views of the lungs acquired following injection of MAA. LIMITATIONS: None. FINDINGS: PERFUSION: Perfusion images with normal homogenous activity and no wedge-shaped or segment al defects. OTHER: No other significant finding. IMPRESSION: No perfusion abnormality of the lungs to suggest pulmonary embolism on perfusion only sc intigraphic lung scan. TECHNICAL DOCUMENTATION: JOB ID: [id number] [employer]- All Rights Reserved Reading location - IP/workstation name: [email or web address]
[2019-06-05] MEDS ORDERED: MORPHINE SULFATE 10 MG/ML INJ IV PRN ×2 (15:30→18:06)
[2019-06-05] MEDS ORDERED: LORAZEPAM INJ 2 MG/1 ML VIAL IV PRN (17:09)
[2019-06-05] MEDS: LEVOFLOXACIN 750 MG/D5W RTU 750 MG/150 ML RTUPB IV SCH (17:13)
[2019-06-05] MEDS: FENTANYL 25 MCG/HR PATCH.TD72 TD SCH (18:57)
[2019-06-05] MEDS: BACLOFEN 10 MG TABLET PO SCH (21:29)
[2019-06-05] MEDS: TEMAZEPAM 15 MG CAPSULE PO SCH (21:30)
[2019-06-05] MEDS: QUETIAPINE FUMARATE 100 MG TABLET PO SCH (21:30)
[2019-06-05] MEDS ORDERED: (PENDING PHARMACY ID) (Temazepam [Restoril] 30 MG) PO SCH (22:00)
[2019-06-05] MEDS ORDERED: QUETIAPINE FUMARATE 300 MG PO SCH (22:00)
[2019-06-06] MEDS: IPRATROPIUM/ALBUTEROL 0.5-2.5 MG/3 ML AMPUL NEB SCH ×4 (02:13→19:58)
[2019-06-06] MEDS: HEPARIN SOD (PORCINE) 5,000 UNIT/ML 1 ML VIAL SUBCUT SCH ×3 (05:23→22:18)
[2019-06-06 07:22] LABS: ABSOLUTE EOSINOPHILS # (AUTO) 0.3 10^3/uL (0.0-0.6); BASOPHILS % (AUTO) 0.2 % (0-2); EOSINOPHILS % (AUTO) 1.7 % (0-6); HEMATOCRIT 35.3 % (37.9-51.0); HEMOGLOBIN 11.5 g/dL (13.5-17.0); LYMPHOCYTES % (AUTO) 6.3 % (13-45); MEAN CORPUSCULAR HEMOGLOBIN 31.8 pg (27.0-33.4); MEAN CORPUSCULAR HGB CONC 32.6 g/dL (32.0-36.0); MEAN CORPUSCULAR VOLUME 98 fl (80-97); MONOCYTES % (AUTO) 6.6 % (3-13); PLATELET COUNT 240 10^3/uL (150-450); RED BLOOD COUNT 3.62 10^6/uL (4.35-5.55); RED CELL DISTRIBUTION WIDTH 15.1 % (11.5-14.0); SEGMENTED NEUTROPHILS % (AUTO) 85.2 % (42-78); TOTAL CELLS COUNTED % (AUTO) 100 %; WHITE BLOOD COUNT 15.2 10^3/uL (4.0-10.5)
[2019-06-06 07:51] LABS: ALBUMIN 2.3 g/dL (3.5-5.0); ALKALINE PHOSPHATASE 79 U/L (38-126); ANION GAP 8 (5-19); ASPARTATE AMINO TRANSFERASE 62 U/L (17-59); BILIRUBIN,DIRECT 0.8 mg/dL (0.0-0.4); BILIRUBIN,TOTAL 1.4 mg/dL (0.2-1.3); BLOOD UREA NITROGEN 15 mg/dL (7-20); CALCIUM 7.9 mg/dL (8.4-10.2); CARBON DIOXIDE 23 mmol/L (22-30); CHLORIDE 121 mmol/L (98-107); GLUCOSE 119 mg/dL (75-110); POTASSIUM 3.4 mmol/L (3.6-5.0); TOTAL PROTEIN 5.4 g/dL (6.3-8.2)
[2019-06-06] MEDS ORDERED: POTASSI CL 20 MEQ/50 ML RIDER 20 MEQ/50 ML RTUPB IV ONE (09:47)
[2019-06-06] MEDS ORDERED: LORAZEPAM INJ 2 MG/1 ML VIAL IV PRN ×3 (10:23→10:35)
[2019-06-06] MEDS ORDERED: LORAZEPAM INJ 2 MG/1 ML VIAL IV SCH ×3 (10:30→11:00)
[2019-06-06] MEDS ORDERED: MORPHINE SULFATE 10 MG/ML INJ IV PRN (10:33)
[2019-06-06] MEDS ORDERED: PREDNISOLONE ACETATE OD SCH (10:45)
[2019-06-06] MEDS: ASPIRIN 81 MG TABLET, CHEWABLE PO SCH (12:38)
[2019-06-06] MEDS: POLYETHYLENE GLYCOL 3350 POWDER 17 GM/1 PACKET PO SCH (12:38)
[2019-06-06] MEDS: GUAIFENESIN 600 MG TABLET.SA PO SCH ×2 (12:38→18:32)
[2019-06-06] MEDS: HYDROCODONE/ACETAMINOPHEN 5-325 MG TABLET PO SCH ×2 (12:38→22:00)
[2019-06-06] MEDS: DULOXETINE HCL 30 MG CAPSULE.DR PO SCH (12:38)
[2019-06-06] MEDS: RAMIPRIL 5 MG CAPSULE PO SCH (12:38)
[2019-06-06] MEDS: AMLODIPINE BESYLATE 5 MG TABLET PO SCH (12:39)
[2019-06-06] MEDS: FAMOTIDINE 20 MG TABLET PO SCH ×2 (12:39→18:33)
[2019-06-06] MEDS: FUROSEMIDE INJ/PF 20 MG/2 ML SDV IV SCH ×2 (13:05→22:21)
[2019-06-06] MEDS: LORAZEPAM INJ 2 MG/1 ML VIAL IV SCH ×2 (13:07→22:21)
[2019-06-06] MEDS: MORPHINE SULFATE 10 MG/ML INJ IV SCH ×2 (17:05→22:22)
[2019-06-06] MEDS: LEVOFLOXACIN 750 MG/D5W RTU 750 MG/150 ML RTUPB IV SCH (17:07)
--- NOTE | 2019-06-06 18:38 | PDOC PROGRESS REPORT ---
Subjective Progress Note for:: 06/06/19 Subjective:: SURYA ALEXIS is a 74 year old male who presents the emergency room via EMS with his family complaining of a cough. Patient has supranuclear palsy and is unable to assist with the communication of his history. Family members admit that he has had a recently increased cough with decreased oral intake and one episode of vomiting at home prior to transport to the ER. EMS reported finding a fever of 101 F at the time of transport. In the emergency room patient was found to have an elevated lactic acid, tachycardia, leukocytosis, fever, radiographic evidence of a bowel obstruction and acute urinary retention. Patient was treated with IV fluids, Fernandez catheter and an NG tube was placed. He was started on Zosyn as antibiotic therapy and was subsequently admitted to the hospital service for further evaluation treatment. 06/05/2019. Patient CODE STATUS has been changed from COMMUNITY NURSE to DNR/DNI per family as patient is having normal bowel movements. Overnight patient was noted to have developed tachypnea and lower upper extremity swelling. Advised patient is not communicative however is present at bedside and daughter is on the phone while I am inpatient. They are very concerned about the fact that patient is having tachypnea, and they want us to rule out PE, but also wants to start TPN as patient is not able to eat. I have advised patient family that is better to involve speech therapy to see if patient could eat on his own instead of hav ing TPN which have multiple complications. Patient's family is agreeable with the plan at this point. They want patient to be transferred to rehab once he is stable enough. 06/06/2019. No acute events overnight, patient still tachypneic, unchanged neurological symptoms, failed swallow eval. patient family still wants to pursue TPN if he fails speech therapy. I have mentioned to family the long-term solution for his p.o. intolerance with the PEG tube versus TPN however patient family wants to use TPN before transitioning to PEG tube Reason For Visit: ACUTE BOWEL OBSTRUCTION,ACUTE URINARY RETENTION Physical Exam Vital Signs: Temp Pulse Resp BP Pulse Ox 98.8 F 82 40 H 144/67 H 94 06/06/19 11:06 06/06/19 14:24 06/06/19 14:24 06/06/19 11:06 06/06/19 14:24 Intake & Output 06/05/19 06/06/19 06/07/19 06:59 06:59 06:59 Intake Total 3935 150 Output Total 450 1075 375 Balance 3485 -925 -355 General appearance: PRESENT: mild distress Head exam: PRESENT: atraumatic, normocephalic Respiratory exam: PRESENT: accessory muscle use, clear to auscultation feliz, tachypnea. ABSENT: rales, rhonchi, wheezes Cardiovascular exam: PRESENT: RRR. ABSENT: diastolic murmur, rubs, systolic murmur GI/Abdominal exam: PRESENT: normal bowel sounds, soft. ABSENT: distended, guarding, mass, organolmegaly, rebound, tenderness Neurological exam: PRESENT: awake Results Laboratory Results: 06/06/19 06:55 06/06/19 06:55 06/06/19 06/06/19 06:55 06:55 WBC 15.2 H RBC 3.62 L Hgb 11.5 L Hct 35.3 L MCV 98 H MCH 31.8 MCHC 32.6 RDW 15.1 H Plt Count 240 Seg Neutrophils % 85.2 H Sodium 151.7 H Potassium 3.4 L Chloride 121 H Carbon Dioxide 23 Anion Gap 8 BUN 15 Creatinine 0.57 Est GFR ( Amer) > 60 Glucose 119 H Calcium 7.9 L Magnesium 2.5 H Total Bilirubin 1.4 H AST 62 H Alkaline Phosphatase 79 Total Protein 5.4 L Albumin 2.3 L 05/28/19 05/28/19 05/28/19 19:10 19:10 22:25 Creatine Kinase CK-MB (CK-2) Troponin I 0.050 0.054 NT-Pro-B Natriuret Pep 2240 H 05/31/19 05/31/19 06/05/19 23:43 23:43 15:23 Creatine Kinase 106 CK-MB (CK-2) 0.74 Troponin I 0.046 NT-Pro-B Natriuret Pep 358 Impressions: Abdomen/Pelvis CT 05/28/19 20:11 IMPRESSION: High-grade distal small bowel obstruction with transition point in the mid pelvis, likely from mechanical bowel obstruction. Small Bowel X-Ray 05/31/19 00:00 IMPRESSION: No oral contrast seen in the colon on the 22 hour delayed film, consistent with obstruction. Chest X-Ray 06/04/19 00:00 IMPRESSION: Asymmetric opacity in the left retrocardiac space that could represent atelectasis or pneumonia. Correlation with clinical findings is recommended. KUB X-Ray 06/04/19 07:00 IMPRESSION: Unchanged radiographic appearance of the abdomen with air- filled/distended loops of small bowel in the mid abdomen that measure up to 4.1 cm in diameter. Lung Scan-VQ NM 06/05/19 09:20 IMPRESSION: No perfusion abnormality of the lungs to suggest pulmonary embolism on perfusion only scintigraphic lung scan. Assessment and Plan - Diagnosis (1) Acute respiratory failure Qualifiers: Respiratory failure complication: unspecified whether with hypoxia or hypercapnia Qualified Code(s): J96.00 - Acute respiratory failure, unspecified whether with hypoxia or hypercapnia Is this a current diagnosis for this admission?: Yes Plan: Likely due to underlying pneumonia. 05/27/2019. Chest x-ray asymmetric opacity in the left retrocardiac space that could represent atelectasis or pneumonia. Patient still has significant leukocytosis, tachypneic however SPO2 is WNL on 2 L. 06/05/2019. Mild hypoxia with respiratory alkalosis. VQ scan negative for PE. Continue supplemental oxygen, duo nebs, PRN BiPAP empiric IV antibiotics. Repeat blood culture. (2) Tachypnea Is this a current diagnosis for this admission?: Yes Plan: Patient very tachypneic however has not been very hypoxic. Unfortunately due to profound neurological I have been unable to find out if he is in pain or anxious. I started him on low-dose Ativan, morphine scheduled and as needed. I have also consulted pulmonology as per patient's family request. (3) Acute exacerbation of CHF (congestive heart failure) Qualifiers: Heart failure type: unspecified Qualified Code(s): I50.9 - Heart failure, unspecified Is this a current diagnosis for this admission?: Yes (4) Small bowel obstruction Is this a current diagnosis for this admission?: Yes Plan: Resolved. Normal bowel movements. Initially was transferred to ICU. Surgery consulted. No surgical intervention was done. 06/03/2019 had a large bloody bowel movement. 06/04/2019 had regular bowel movement. KUB showed improvement of the obstruction. Family rescinded COMMUNITY NURSE status. Continue supportive measures. Monitor vitals. (5) CAD (coronary artery disease) of artery bypass graft Qualifiers: Associated angina: without angina Is this a current diagnosis for this admission?: Yes Plan: History of CABG. Continue antiplatelets, beta-blockers and LGENN. Allergic to statins. (6) Acute kidney injury (nontraumatic) Is this a current diagnosis for this admission?: Yes Plan: Resolved with IV fluids. (7) Hypernatremia Is this a current diagnosis for this admission?: Yes Plan: Improving. Patient's COMMUNITY NURSE status has been rescinded by family. Currently DNR/DNI. Continue cardiac diet, IV Lasix, monitor for seizure. Sodium level tomorrow. (8) Progressive supranuclear palsy Is this a current diagnosis for this admission?: Yes Plan: DNR/DNR status. Continue supportive measures.
[2019-06-06] MEDS: TEMAZEPAM 15 MG CAPSULE PO SCH (22:00)
[2019-06-06] MEDS: QUETIAPINE FUMARATE 100 MG TABLET PO SCH (22:00)
[2019-06-06] MEDS: BACLOFEN 10 MG TABLET PO SCH (22:00)
[2019-06-06] MEDS: DEXTROSE 10%-WATER 1,000 ML IV PRN (22:33)
[2019-06-07] MEDS: IPRATROPIUM/ALBUTEROL 0.5-2.5 MG/3 ML AMPUL NEB SCH ×4 (02:03→19:44)
[2019-06-07 04:50] LABS: ABSOLUTE EOSINOPHILS # (AUTO) 0.2 10^3/uL (0.0-0.6); ABSOLUTE LYMPHOCYTES (AUTO) 0.9 10^3/uL (0.5-4.7); ABSOLUTE MONOCYTES (AUTO) 1.1 10^3/uL (0.1-1.4); ABSOLUTE NEUT (AUTO) 13.2 10^3/uL (1.7-8.2); BASOPHILS % (AUTO) 0.3 % (0-2); EOSINOPHILS % (AUTO) 1.3 % (0-6); HEMATOCRIT 35.4 % (37.9-51.0); HEMOGLOBIN 11.6 g/dL (13.5-17.0); LYMPHOCYTES % (AUTO) 5.9 % (13-45); MEAN CORPUSCULAR HEMOGLOBIN 31.9 pg (27.0-33.4); MEAN CORPUSCULAR HGB CONC 32.6 g/dL (32.0-36.0); MEAN CORPUSCULAR VOLUME 98 fl (80-97); MONOCYTES % (AUTO) 6.8 % (3-13); PLATELET COUNT 227 10^3/uL (150-450); RED BLOOD COUNT 3.63 10^6/uL (4.35-5.55); RED CELL DISTRIBUTION WIDTH 14.8 % (11.5-14.0); SEGMENTED NEUTROPHILS % (AUTO) 85.7 % (42-78); TOTAL CELLS COUNTED % (AUTO) 100 %; WHITE BLOOD COUNT 15.4 10^3/uL (4.0-10.5)
[2019-06-07 05:12] LABS: ANION GAP 5 (5-19); BLOOD UREA NITROGEN 16 mg/dL (7-20); CALCIUM 7.9 mg/dL (8.4-10.2); CARBON DIOXIDE 25 mmol/L (22-30); CHLORIDE 118 mmol/L (98-107); GLUCOSE 119 mg/dL (75-110); POTASSIUM 3.6 mmol/L (3.6-5.0)
[2019-06-07] MEDS: MORPHINE SULFATE 10 MG/ML INJ IV SCH ×3 (07:04→22:34)
[2019-06-07] MEDS: LORAZEPAM INJ 2 MG/1 ML VIAL IV SCH ×3 (07:05→22:35)
[2019-06-07] MEDS: HEPARIN SOD (PORCINE) 5,000 UNIT/ML 1 ML VIAL SUBCUT SCH ×3 (07:05→22:36)
[2019-06-07] MEDS: PREDNISOLONE ACETATE 1% OPH SUSP 5 ML OD SCH (08:52)
--- NOTE | 2019-06-07 09:59 | PDOC CONSULTATION ---
Consultation Consult Date: 06/07/19 Attending physician:: RONNIE BURLESON Provider Consulted: YESSI MACHUCA Consult reason:: Pneumonia/tachypnea History of Present Illness Admission Date/PCP: 05/29/19 00:18 SADIQ ARMSTRONG MD History of Present Illness: SURYA ALEXIS is a 74 year old male, to the ED with cough temperature and found to be hypoxic this is been progressing over 1 day prior to his presentation. He is currently obtunded history is from medical records as well as a family member. He has had supra nuclear palsy since 2010 last week or so it seems to have progressed reasonable eating were able to move. He was found to be constipated and this subsequently relieved. Since the time of his arrival he has been profoundly tachypneic his pneumonia looking his ABG as well as his chest x-ray and tachypnea is somewhat out of proportion. Due to his ministerio rological condition this could be result of poor tidal volumes or recurrent aspiration smoked he had no severe chronic lung disease as a child or adolescent. He is never been exposed to passive smoke as a child or adult works in [employer]. His employment details are unavailable. He is currently unable to eat or swallow. History of hypertension and hypercholesterolemia. He is as had a history of coronary artery disease status post CABG. He does not snore but he makes a loud gurgling sound when he is asleep Past Medical History Cardiac Medical History: Reports: Coronary Artery Disease, Hypertension Denies: Myocardial Infarction Pulmonary Medical History: Reports: Pneumonia - Aspiration Denies: Asthma, Chronic Obstructive Pulmonary Disease (COPD) EENT Medical History: Denies: Cataracts, Ears - Hearing aids Neurological Medical History: Reports: Other - Supranuclear palsy Denies: Hemorrhagic CVA, Ischemic CVA, Multiple Sclerosis, Seizures Endocrine Medical History: Denies: Diabetes Mellitus Type 1, Diabetes Mellitus Type 2, Hyperthyroidism, Hypothyroidism Renal/ Medical History: Denies: Chronic Kidney Disease, Nephrolithiasis Malignancy Medical History: Reports: None GI Medical History: Denies: Cirrhosis, Gastroesophageal Reflux Disease, Hepatitis, Peptic Ulcer Disease Musculoskeltal Medical History: Denies: Arthritis, Gout Skin Medical History: Denies: Eczema, Psoriasis Psychiatric Medical History: Reports: Depression Denies: Alcohol Dependency, Substance Abuse, Tobacco Dependency Traumatic Medical History: Reports: None Hematology: Denies: Anemia, Sickle Cell Disease, Bleeding Tendencies Infectious Medical History: Reports: None Denies: HIV Past Surgical History Past Surgical History: Reports: Coronary Artery Bypass Graft, Other - Left eye corneal transplant Social History Information Source: Relative, [facility] Records Lives with: Family, Other Smoking Status: Never Smoker Last Time Smoked: 1961 Passive smoke exposure as: Both Frequency of Alcohol Use: None Hx Recreational Drug Use: No Drugs: None Hx Prescription Drug Abuse: No Do you have pets?: No Have you had any respiratory illnesses as a child?: No Have you been exposed to any sick contacts recently?: No Have you had any recent respiratory illnesses?: No Have you travelled outside of [place] in the past 12 months?: No - Advance Directive Resuscitation Status: Do Not Resuscitate Family History Family History: CAD, Hypertension, Malignancy Parental Family History Reviewed: Yes Children Family History Reviewed: Yes Sibling(s) Family History Reviewed.: Yes Medication/Allergy Home Medications: Amlodipine Besylate [Norvasc 10 mg Tablet] 10 mg PO DAILY 05/29/19 Aspirin [[place] Aspirin] 81 mg PO DAILY 05/29/19 Baclofen [Baclofen 10 mg Tablet] 10 mg PO QHS 05/29/19 Cetirizine HCl [Zyrtec] 10 mg PO DAILY 05/29/19 Duloxetine HCl [Cymbalta] 60 mg PO DAILY 05/29/19 Erythromycin Base [Erythromycin Oph Oint 1 Gm Ud] 1 applic OD QHS 05/29/19 Ezetimibe [Zetia 10 mg Tablet] 10 mg PO DAILY 05/29/19 Famotidine [Pepcid 20 mg Tablet] 20 mg PO BID 05/29/19 Guaifenesin [Mucinex] 600 mg PO BID 05/29/19 Hydrocodone/Acetaminophen [[place] 5-325 mg Tablet] 1 tab PO Q12 05/29/19 Ipratropium [place] [Atrovent 0.06% Nasal [place]] 2 spray NASL ASDIR PRN 05/29/19 Ketotifen Fumarate [Refresh] 1 drop OP ASDIR PRN 05/29/19 Polyethylene Glycol 3350 [Miralax Powder 17 gm/Packet] 1 packet PO DAILY 05/29/19 Prednisolone Acetate/Pf [Prednisolone Acet 1% Eye Drop] 1 drop OD QAM 05/29/19 Quetiapine Fumarate [Quetiapine Fumarate ER] 300 mg PO QHS 05/29/19 Ramipril [Altace 10 mg Capsule] 15 mg PO DAILY 05/29/19 Scopolamine 1 each TD Q3DAYS 05/29/19 Temazepam [Restoril] 30 mg PO QHS 05/29/19 Allergies/Adverse Reactions: erythromycin base [From Staticin] Allergy (Verified 01/10/18 10:18) ethyl alcohol [From Staticin] Allergy (Verified 01/10/18 10:18) oxycodone [From Percocet] Allergy (Verified 01/10/18 10:18) [id number] Reductase Inhibitor Allergy (Verified 01/10/18 10:18) Sulfa (Sulfonamide Antibiotics) Allergy (Verified 01/10/18 10:18) Review of Systems ROS unobtainable: Due to mental status Physical Exam Vital Signs: Temp Pulse Resp BP Pulse Ox 97.6 F 88 42 H 133/73 H 94 06/06/19 16:00 06/07/19 08:23 06/07/19 08:23 06/06/19 16:00 06/07/19 08:23 Intake & Output 06/06/19 06/07/19 06/08/19 06:59 06:59 06:59 Intake Total 150 200 Output Total 1075 875 Balance -925 -675 General appearance: PRESENT: disheveled, mild distress. ABSENT: cooperative Head exam: PRESENT: atraumatic, normocephalic Eye exam: PRESENT: conjunctiva pale. ABSENT: nystagmus, periorbital swelling Mouth exam: PRESENT: dry mucosa, neck supple, tongue midline Teeth exam: PRESENT: poor dentation Neck exam: ABSENT: carotid bruit, full ROM, JVD, lymphadenopathy, meningismus, tenderness, thyromegaly, tracheal deviation, tracheostomy, other Respiratory exam: PRESENT: decreased breath sounds, prolonged expiratory phas, rales, rhonchi, symmetrical, tachypnea, unlabored. ABSENT: retraction, stridor, wheezes Cardiovascular exam: PRESENT: RRR, +S1, +S2, tachycardia Pulses: PRESENT: normal radial pulses GI/Abdominal exam: PRESENT: soft, tenderness. ABSENT: distended, guarding, mass, rebound, rigid Extremities exam: PRESENT: other - spasticity. ABSENT: calf tenderness, clubbing, joint swelling, pedal edema Musculoskeletal exam: ABSENT: ambulatory, dislocation, normal inspection Neurological exam: PRESENT: altered, awake. ABSENT: oriented to person, oriented to place, oriented to time, oriented to situation Focused psych exam: PRESENT: catatonic Skin exam: PRESENT: dry, warm Results Laboratory Results: 06/07/19 04:21 06/07/19 04:21 06/07/19 06/07/19 04:21 04:21 WBC 15.4 H RBC 3.63 L Hgb 11.6 L Hct 35.4 L MCV 98 H MCH 31.9 MCHC 32.6 RDW 14.8 H Plt Count 227 Seg Neutrophils % 85.7 H Sodium 148.2 H Potassium 3.6 Chloride 118 H Carbon Dioxide 25 Anion Gap 5 BUN 16 Creatinine 0.62 Est GFR ( Amer) > 60 Glucose 119 H Calcium 7.9 L Magnesium 2.5 H 05/28/19 05/28/19 05/28/19 19:10 19:10 22:25 Creatine Kinase CK-MB (CK-2) Troponin I 0.050 0.054 NT-Pro-B Natriuret Pep 2240 H 05/31/19 05/31/19 06/05/19 23:43 23:43 15:23 Creatine Kinase 106 CK-MB (CK-2) 0.74 Troponin I 0.046 NT-Pro-B Natriuret Pep 358 Impressions: Abdomen/Pelvis CT 05/28/19 20:11 IMPRESSION: High-grade distal small bowel obstruction with transition point in the mid pelvis, likely from mechanical bowel obstruction. Small Bowel X-Ray 05/31/19 00:00 IMPRESSION: No oral contrast seen in the colon on the 22 hour delayed film, consistent with obstruction. Chest X-Ray 06/04/19 00:00 IMPRESSION: Asymmetric opacity in the left retrocardiac space that could represent atelectasis or pneumonia. Correlation with clinical findings is recommended. KUB X-Ray 06/04/19 07:00 IMPRESSION: Unchanged radiographic appearance of the abdomen with air-filled/d istended loops of small bowel in the mid abdomen that measure up to 4.1 cm in diameter. Lung Scan-VQ NM 06/05/19 09:20 IMPRESSION: No perfusion abnormality of the lungs to suggest pulmonary embolism on perfusion only scintigraphic lung scan. Assessment & Plan - Diagnosis (1) Acute respiratory failure Qualifiers: Respiratory failure complication: unspecified whether with hypoxia or hypercapnia Qualified Code(s): J96.00 - Acute respiratory failure, unspecified whether with hypoxia or hypercapnia Is this a current diagnosis for this admission?: Yes Plan: Suspect patient continues to aspirate as acute on chronic suggest 1 nasal trumpet suctioning qevery 4h (2) Constipation due to neurogenic bowel Is this a current diagnosis for this admission?: No (3) Neuromuscular respiratory weakness Is this a current diagnosis for this admission?: Yes Plan: Reason for tachypnea this patient may not be getting adequate tidal volumes will initiate trial of BiPAP (4) Supranuclear palsies, progressive Is this a current diagnosis for this admission?: Yes Plan: Neurological disease patient unable to talk to feed himself or participate in any self-care (5) Tachypnea Is this a current diagnosis for this admission?: Yes Plan: Continues aspiration Pneumonia Poor tidal volumes due to neuromuscular disease Anxiety We will initiate a trial of BiPAP (6) Aspiration pneumonitis Is this a current diagnosis for this admission?: Yes Plan: Continue antibiotics as you have initiated his white count is coming down consider an NG tube to low intermittent suction as this would help to keep his stomach empty.
[2019-06-07] MEDS: POLYETHYLENE GLYCOL 3350 POWDER 17 GM/1 PACKET PO SCH (10:00)
[2019-06-07] MEDS: RAMIPRIL 5 MG CAPSULE PO SCH (10:00)
[2019-06-07] MEDS: GUAIFENESIN 600 MG TABLET.SA PO SCH ×2 (10:00→17:29)
[2019-06-07] MEDS: ASPIRIN 81 MG TABLET, CHEWABLE PO SCH (10:00)
[2019-06-07] MEDS: DULOXETINE HCL 30 MG CAPSULE.DR PO SCH (10:00)
[2019-06-07] MEDS: FAMOTIDINE 20 MG TABLET PO SCH ×2 (10:01→17:29)
[2019-06-07] MEDS: AMLODIPINE BESYLATE 5 MG TABLET PO SCH (10:01)
[2019-06-07] MEDS: HYDROCODONE/ACETAMINOPHEN 5-325 MG TABLET PO SCH ×2 (10:01→22:19)
[2019-06-07] MEDS: FUROSEMIDE INJ/PF 20 MG/2 ML SDV IV SCH ×2 (11:25→22:35)
[2019-06-07] MEDS: CEFTRIAXONE 2 GM/D5W RTU 2 GM/50 ML RTUPB IV SCH (11:25)
--- NOTE | 2019-06-07 12:32 | PDOC PROGRESS REPORT ---
Subjective Progress Note for:: 06/07/19 Subjective:: SURYA ALEXIS is a 74 year old male who presents the emergency room via EMS with his family complaining of a cough. Patient has supranuclear palsy and is unable to assist with the communication of his history. Family members admit that he has had a recently increased cough with decreased oral intake and one episode of vomiting at home prior to transport to the ER. EMS reported finding a fever of 101 F at the time of transport. In the emergency room patient was found to have an elevated lactic acid, tachycardia, leukocytosis, fever, radiographic evidence of a bowel obstruction and acute urinary retention. Patient was treated with IV fluids, Fernandez catheter and an NG tube was placed. He was started on Zosyn as antibiotic therapy and was subsequently admitted to the hospital service for further evaluation treatment. 06/05/2019. 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 Overnight patient was noted to have developed tachypnea and lower upper extremity swelling. Advised patient is not communicative however is present at bedside and daughter is on the phone while I am inpatient. They are very concerned about the fact that patient is having tachypnea, and they want us to rule out PE, but also wants to start TPN as patient is not able to eat. I have advised patient family that is better to involve speech therapy to see if patient could eat on his own instead of hav ing TPN which have multiple complications. Patient's family is agreeable with the plan at this point. They want patient to be transferred to rehab once he is stable enough. 06/06/2019. No acute events overnight, patient still tachypneic, unchanged neurological symptoms, failed swallow eval. patient family still wants to pursue TPN if he fails speech therapy. I have mentioned to family the long-term solution for his p.o. intolerance with the PEG tube versus TPN however patient family wants to use TPN before transitioning to PEG tube 06/07/2019. No acute events overnight. Patient slept very tachypneic and neurological status remains unchanged. Has failed swallow eval. I have consulted Dr. Gomez palliative nurse for further input into tachycardia, eating tachycardia could be due to low tidal volume due to neuromuscular respiratory weakness and anxiety and pain. He was restarted on BiPAP for now, continue antibiotics. Reason For Visit: ACUTE BOWEL OBSTRUCTION,ACUTE URINARY RETENTION Physical Exam Vital Signs: Temp Pulse Resp BP Pulse Ox 100.7 F H 96 49 H 135/68 H 95 06/07/19 09:23 06/07/19 09:23 06/07/19 09:23 06/07/19 09:23 06/07/19 09:23 Intake & Output 06/06/19 06/07/19 06/08/19 06:59 06:59 06:59 Intake Total 150 200 Output Total 1075 875 Balance -925 -675 General appearance: PRESENT: mild distress Head exam: PRESENT: atraumatic, normocephalic Respiratory exam: PRESENT: clear to auscultation feliz, tachypnea. ABSENT: rales, rhonchi, wheezes GI/Abdominal exam: PRESENT: normal bowel sounds, soft. ABSENT: distended, guarding, mass, organolmegaly, rebound, tenderness Neurological exam: PRESENT: awake, other - Follows minimal commands. Results Laboratory Results: 06/07/19 04:21 06/07/19 04:21 06/07/19 06/07/19 04:21 04:21 WBC 15.4 H RBC 3.63 L Hgb 11.6 L Hct 35.4 L MCV 98 H MCH 31.9 MCHC 32.6 RDW 14.8 H Plt Count 227 Seg Neutrophils % 85.7 H Sodium 148.2 H Potassium 3.6 Chloride 118 H Carbon Dioxide 25 Anion Gap 5 BUN 16 Creatinine 0.62 Est GFR ( Amer) > 60 Glucose 119 H Calcium 7.9 L Magnesium 2.5 H 05/28/19 05/28/19 05/28/19 19:10 19:10 22:25 Creatine Kinase CK-MB (CK-2) Troponin I 0.050 0.054 NT-Pro-B Natriuret Pep 2240 H 05/31/19 05/31/19 06/05/19 23:43 23:43 15:23 Creatine Kinase 106 CK-MB (CK-2) 0.74 Troponin I 0.046 NT-Pro-B Natriuret Pep 358 Impressions: Abdomen/Pelvis CT 05/28/19 20:11 IMPRESSION: High-grade distal small bowel obstruction with transition point in the mid pelvis, likely from mechanical bowel obstruction. Small Bowel X-Ray 05/31/19 00:00 IMPRESSION: No oral contrast seen in the colon on the 22 hour delayed film, consistent with obstruction. Chest X-Ray 06/04/19 00:00 IMPRESSION: Asymmetric opacity in the left retrocardiac space that could represent atelectasis or pneumonia. Correlation with clinical findings is recommended. KUB X-Ray 06/04/19 07:00 IMPRESSION: Unchanged radiographic appearance of the abdomen with air- filled/distended loops of small bowel in the mid abdomen that measure up to 4.1 cm in diameter. Lung Scan-VQ NM 06/05/19 09:20 IMPRESSION: No perfusion abnormality of the lungs to suggest pulmonary embolism on perfusion only scintigraphic lung scan. Assessment and Plan - Diagnosis (1) Acute respiratory failure Qualifiers: Respiratory failure complication: unspecified whether with hypoxia or hypercapnia Qualified Code(s): J96.00 - Acute respiratory failure, unspecified whether with hypoxia or hypercapnia Is this a current diagnosis for this admission?: Yes Plan: Likely due to underlying pneumonia/pneumonitis. 05/27/2019. Chest x-ray asymmetric opacity in the left retrocardiac space that could represent atelectasis or pneumonia. Patient still has significant leukocytosis, tachypneic however SPO2 is WNL on 2 L. 06/05/2019. Mild hypoxia with respiratory alkalosis. VQ scan negative for PE. Continue supplemental oxygen, duo nebs, PRN BiPAP empiric IV antibiotics. 06/07/2018. Switch levofloxacin to ceftriaxone. Repeat blood culture. (2) Aspiration pneumonitis Is this a current diagnosis for this admission?: Yes Plan: Due to worsening neurodegenerative disorder. Patient has advanced supranuclear palsy. I have consulted Dr. Gomez palliative nurse and his recommendations are to continue BiPAP, antibiotics, Nasal trumpet suctioning every 4 hours, NG for intermittent gastric suction and anxiolytics. Continue BiPAP, antibiotics, anti-anxiety, morphine, nasal trumpet every 4 hours. Patient family refusing nasogastric tube placement. (3) Tachypnea Is this a current diagnosis for this admission?: Yes Plan: Patient very tachypneic however has not been very hypoxic. Unfortunately due to profound neurological I have been unable to find out if he is in pain or anxious. I have consulted Dr. Gomez palliative nurse who thinks his tachypnea could be due to underlying tidal volumes caused by neuromuscular weakness due to underlying neurodegenerative disorder as well as anxiety and pain. He is suggesting BiPAP, continuation of antibiotics, Nasal trumpet suctioning every 4 hours, NG for intermittent gastric suction and anxiolytics. Continue BiPAP, anxiety lytics, morphine, nasal trumpet every 4 hours. Patient family refusing nasogastric tube placement. (4) Acute exacerbation of CHF (congestive heart failure) Qualifiers: Heart failure type: unspecified Qualified Code(s): I50.9 - Heart failure, unspecified Is this a current diagnosis for this admission?: Yes Plan: Likely due to aggressive volume resuscitation for underlying hypernatremia and CAD medications were on hold. DC IV fluids given, IV Lasix, restart GLENN, cardiac diet. Pending BMP. (5) Small bowel obstruction Is this a current diagnosis for this admission?: Yes Plan: Resolved. Normal bowel movements. Initially was transferred to ICU. Surgery consulted. No surgical intervention was done. 06/03/2019 had a large bloody bowel movement. 06/04/2019 had regular bowel movement. KUB showed improvement of the obstruction. Family rescinded RELIGIOUS LEADER status. Continue supportive measures. Monitor vitals. (6) CAD (coronary artery disease) of artery bypass graft Qualifiers: Associated angina: without angina Is this a current diagnosis for this admission?: Yes Plan: History of CABG. Continue antiplatelets, beta-blockers and GLENN. Allergic to statins. (7) Acute kidney injury (nontraumatic) Is this a current diagnosis for this admission?: Yes Plan: Resolved with IV fluids. (8) Hypernatremia Is this a current diagnosis for this admission?: Yes Plan: Improving. Patient's RELIGIOUS LEADER status has been rescinded by family. Currently DNR/DNI. Continue cardiac diet, IV Lasix, monitor for seizure. Sodium level tomorrow. (9) Progressive supranuclear palsy Is this a current diagnosis for this admission?: Yes Plan: DNR/DNR status. Continue supportive measures.
[2019-06-07] MEDS: MORPHINE SULFATE 10 MG/ML INJ IV PRN (18:48)
[2019-06-07] MEDS: DEXTROSE 10%-WATER 1,000 ML IV PRN (18:56)
[2019-06-07] MEDS: BACLOFEN 10 MG TABLET PO SCH (22:18)
[2019-06-07] MEDS: TEMAZEPAM 15 MG CAPSULE PO SCH (22:19)
[2019-06-07] MEDS: QUETIAPINE FUMARATE 100 MG TABLET PO SCH (22:19)
[2019-06-08] MEDS: IPRATROPIUM/ALBUTEROL 0.5-2.5 MG/3 ML AMPUL NEB SCH ×4 (01:52→20:00)
[2019-06-08 06:21] LABS: ABSOLUTE BASOPHILS # (AUTO) 0.1 10^3/uL (0.0-0.2); ABSOLUTE EOSINOPHILS # (AUTO) 0.1 10^3/uL (0.0-0.6); ABSOLUTE LYMPHOCYTES (AUTO) 1.7 10^3/uL (0.5-4.7); ABSOLUTE MONOCYTES (AUTO) 1.6 10^3/uL (0.1-1.4); ABSOLUTE NEUT (AUTO) 15.7 10^3/uL (1.7-8.2); BASOPHILS % (AUTO) 0.3 % (0-2); EOSINOPHILS % (AUTO) 0.6 % (0-6); HEMATOCRIT 37.3 % (37.9-51.0); HEMOGLOBIN 12.6 g/dL (13.5-17.0); LYMPHOCYTES % (AUTO) 8.7 % (13-45); MEAN CORPUSCULAR HEMOGLOBIN 32.9 pg (27.0-33.4); MEAN CORPUSCULAR HGB CONC 33.7 g/dL (32.0-36.0); MEAN CORPUSCULAR VOLUME 98 fl (80-97); MONOCYTES % (AUTO) 8.5 % (3-13); PLATELET COUNT 216 10^3/uL (150-450); RED BLOOD COUNT 3.83 10^6/uL (4.35-5.55); RED CELL DISTRIBUTION WIDTH 14.9 % (11.5-14.0); SEGMENTED NEUTROPHILS % (AUTO) 81.9 % (42-78); TOTAL CELLS COUNTED % (AUTO) 100 %; WHITE BLOOD COUNT 19.2 10^3/uL (4.0-10.5)
[2019-06-08 06:40] LABS: ANION GAP 5 (5-19); BLOOD UREA NITROGEN 20 mg/dL (7-20); CARBON DIOXIDE 28 mmol/L (22-30); CHLORIDE 113 mmol/L (98-107); GLUCOSE 119 mg/dL (75-110); POTASSIUM 3.6 mmol/L (3.6-5.0)
[2019-06-08] MEDS: HEPARIN SOD (PORCINE) 5,000 UNIT/ML 1 ML VIAL SUBCUT SCH ×3 (06:49→21:23)
[2019-06-08] MEDS: LORAZEPAM INJ 2 MG/1 ML VIAL IV SCH ×3 (06:49→21:23)
[2019-06-08] MEDS: MORPHINE SULFATE 10 MG/ML INJ IV SCH ×3 (06:49→21:23)
[2019-06-08] MEDS: PREDNISOLONE ACETATE 1% OPH SUSP 5 ML OD SCH (07:44)
[2019-06-08] MEDS: RAMIPRIL 5 MG CAPSULE PO SCH (11:17)
[2019-06-08] MEDS: ASPIRIN 81 MG TABLET, CHEWABLE PO SCH (11:17)
[2019-06-08] MEDS: POLYETHYLENE GLYCOL 3350 POWDER 17 GM/1 PACKET PO SCH (11:18)
[2019-06-08] MEDS: DULOXETINE HCL 30 MG CAPSULE.DR PO SCH (11:18)
[2019-06-08] MEDS: GUAIFENESIN 600 MG TABLET.SA PO SCH ×2 (11:19→18:31)
[2019-06-08] MEDS: AMLODIPINE BESYLATE 5 MG TABLET PO SCH (11:19)
[2019-06-08] MEDS: HYDROCODONE/ACETAMINOPHEN 5-325 MG TABLET PO SCH ×2 (11:19→21:14)
[2019-06-08] MEDS: FAMOTIDINE 20 MG TABLET PO SCH ×2 (11:20→18:40)
[2019-06-08] MEDS: SCOPOLAMINE HYDROBROMIDE 1.5 MG PATCH.TD72 TD SCH (11:24)
[2019-06-08] MEDS: FUROSEMIDE INJ/PF 20 MG/2 ML SDV IV SCH (11:25)
[2019-06-08] MEDS: CEFTRIAXONE 2 GM/D5W RTU 2 GM/50 ML RTUPB IV SCH (11:26)
[2019-06-08] MEDS ORDERED: ACETAMINOPHEN 650 MG SUPP.RECT PR ONE (11:43)
[2019-06-08] MEDS ORDERED: ACETAMINOPHEN 650 MG SUPP.RECT PR PRN (11:56)
[2019-06-08] MEDS ORDERED: DEXTROSE 10%-WATER 1,000 ML IV PRN (12:53)
--- NOTE | 2019-06-08 15:03 | PDOC PROGRESS REPORT ---
Subjective Progress Note for:: 06/08/19 Subjective:: SURYA ALEXIS is a 74 year old male who presents the emergency room via EMS with his family complaining of a cough. Patient has supranuclear palsy and is unable to assist with the communication of his history. Family members admit that he has had a recently increased cough with decreased oral intake and one episode of vomiting at home prior to transport to the ER. EMS reported finding a fever of 101 F at the time of transport. In the emergency room patient was found to have an elevated lactic acid, tachycardia, leukocytosis, fever, radiographic evidence of a bowel obstruction and acute urinary retention. Patient was treated with IV fluids, Fernandez catheter and an NG tube was placed. He was started on Zosyn as antibiotic therapy and was subsequently admitted to the hospital service for further evaluation treatment. 06/05/2019. 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 Overnight patient was noted to have developed tachypnea and lower upper extremity swelling. Advised patient is not communicative however is present at bedside and daughter is on the phone while I am inpatient. They are very concerned about the fact that patient is having tachypnea, and they want us to rule out PE, but also wants to start TPN as patient is not able to eat. I have advised patient family that is better to involve speech therapy to see if patient could eat on his own instead of hav ing TPN which have multiple complications. Patient's family is agreeable with the plan at this point. They want patient to be transferred to rehab once he is stable enough. 06/06/2019. No acute events overnight, patient still tachypneic, unchanged neurological symptoms, failed swallow eval. patient family still wants to pursue TPN if he fails speech therapy. I have mentioned to family the long-term solution for his p.o. intolerance with the PEG tube versus TPN however patient family wants to use TPN before transitioning to PEG tube 06/07/2019. No acute events overnight. Patient slept very tachypneic and neurological status remains unchanged. Has failed swallow eval. I have consulted Dr. Gomez dinking machine operator for further input into tachycardia, eating tachycardia could be due to low tidal volume due to neuromuscular respiratory weakness and anxiety and pain. He was restarted on BiPAP for now, continue antibiotics. 06/08/2019. No significant change. Neurologically unchanged. Patient still very tachypneic while being on BiPAP. Worsening leukocytosis, sodium level improving. Has failed swallow evaluation. Family still wants to continue treatment. Has not been receiving p.o. meds due to p.o. intolerance, patient's family does not want PEG tube or nasogastric tube. Reason For Visit: ACUTE BOWEL OBSTRUCTION,ACUTE URINARY RETENTION Physical Exam Vital Signs: Temp Pulse Resp BP Pulse Ox 99.3 F 98 53 H 106/59 L 98 06/08/19 00:00 06/08/19 13:47 06/08/19 13:47 06/08/19 00:00 06/08/19 13:47 Intake & Output 06/07/19 06/08/19 06/09/19 06:59 06:59 06:59 Intake Total 200 50 Output Total 875 1150 Balance -675 -1100 General appearance: PRESENT: mild distress Head exam: PRESENT: atraumatic, normocephalic Respiratory exam: PRESENT: clear to auscultation feliz, tachypnea. ABSENT: rales, rhonchi, wheezes Cardiovascular exam: PRESENT: RRR. ABSENT: diastolic murmur, rubs, systolic murmur GI/Abdominal exam: PRESENT: normal bowel sounds, soft. ABSENT: distended, guarding, mass, organolmegaly, rebound, tenderness Extremities exam: ABSENT: calf tenderness, clubbing, pedal edema Neurological exam: PRESENT: awake, other - Only occasionally closes his eyes to command. Results Laboratory Results: 06/08/19 06:04 06/08/19 06:04 06/08/19 06/08/19 06:04 06:04 WBC 19.2 H RBC 3.83 L Hgb 12.6 L Hct 37.3 L MCV 98 H MCH 32.9 MCHC 33.7 RDW 14.9 H Plt Count 216 Seg Neutrophils % 81.9 H Sodium 146.1 H Potassium 3.6 Chloride 113 H Carbon Dioxide 28 Anion Gap 5 BUN 20 Creatinine 0.66 Est GFR ( Amer) > 60 Glucose 119 H Calcium 8.0 L 05/28/19 05/28/19 05/28/19 19:10 19:10 22:25 Creatine Kinase CK-MB (CK-2) Troponin I 0.050 0.054 NT-Pro-B Natriuret Pep 2240 H 05/31/19 05/31/19 06/05/19 23:43 23:43 15:23 Creatine Kinase 106 CK-MB (CK-2) 0.74 Troponin I 0.046 NT-Pro-B Natriuret Pep 358 Impressions: Abdomen/Pelvis CT 05/28/19 20:11 IMPRESSION: High-grade distal small bowel obstruction with transition point in the mid pelvis, likely from mechanical bowel obstruction. Small Bowel X-Ray 05/31/19 00:00 IMPRESSION: No oral contrast seen in the colon on the 22 hour delayed film, consistent with obstruction. Chest X-Ray 06/04/19 00:00 IMPRESSION: Asymmetric opacity in the left retrocardiac space that could represent atelectasis or pneumonia. Correlation with clinical findings is recommended. KUB X-Ray 06/04/19 07:00 IMPRESSION: Unchanged radiographic appearance of the abdomen with air- filled/distended loops of small bowel in the mid abdomen that measure up to 4.1 cm in diameter. Lung Scan-VQ NM 06/05/19 09:20 IMPRESSION: No perfusion abnormality of the lungs to suggest pulmonary embolism on perfusion only scintigraphic lung scan. Assessment and Plan - Diagnosis (1) Acute respiratory failure Qualifiers: Respiratory failure complication: unspecified whether with hypoxia or hypercapnia Qualified Code(s): J96.00 - Acute respiratory failure, unspecified whether with hypoxia or hypercapnia Is this a current diagnosis for this admission?: Yes Plan: Unchanged. Worsening leukocytosis. Running fevers. Likely due to underlying pneumonia/pneumonitis. 05/27/2019. Chest x-ray asymmetric opacity in the left retrocardiac space that could represent atelectasis or pneumonia. Patient still has significant leukocytosis, tachypneic however SPO2 is WNL on 2 L. 06/05/2019. Mild hypoxia with respiratory alkalosis. VQ scan negative for PE. Continue supplemental oxygen, duo nebs, PRN BiPAP empiric IV antibiotics. 06/07/2018. Switch levofloxacin to ceftriaxone. Repeat blood culture. (2) Aspiration pneumonitis Is this a current diagnosis for this admission?: Yes Plan: Patient is febrile. Worsening leukocytosis. Due to worsening neurodegenerative disorder. Patient has advanced supranuclear palsy. I have consulted Dr. Gomez dinking machine operator and his recommendations are to continue BiPAP, antibiotics, Nasal trumpet suctioning every 4 hours, NG for intermittent gastric suction and anxiolytics. Continue BiPAP, antibiotics, anti-anxiety, morphine, nasal trumpet every 4 hours. Patient family refusing nasogastric tube placement. (3) Tachypnea Is this a current diagnosis for this admission?: Yes Plan: Unchanged. Patient very tachypneic however has not been very hypoxic. Unfortunately due to profound neurological I have been unable to find out if he is in pain or anxious. I have consulted Dr. Gomez dinking machine operator who thinks his tachypnea could be due to underlying tidal volumes caused by neuromuscular weakness due to underlying neurodegenerative disorder as well as anxiety and pain. He is suggesting BiPAP, continuation of antibiotics, Nasal trumpet suctioning every 4 hours, NG for intermittent gastric suction and anxiolytics. Continue BiPAP, anxiety lytics, morphine, nasal trumpet every 4 hours. Patient family refusing nasogastric tube placement. (4) Acute exacerbation of CHF (congestive heart failure) Qualifiers: Heart failure type: unspecified Qualified Code(s): I50.9 - Heart failure, unspecified Is this a current diagnosis for this admission?: Yes Plan: Appears euvolemic based on physical examination. This was likely due to aggressive volume resuscitation for underlying hypernatremia and CAD medications were on hold. Appears euvolemic. DC IV Lasix. proBNP 358 down from 2240. Continue monitoring volume status, and vitals. Note. Patient has not been able to take his p.o. meds due to p.o. intolerance. Family is refusing nasogastric tube placement. (5) Small bowel obstruction Is this a current diagnosis for this admission?: Yes Plan: Resolved. Normal bowel movements. Initially was transferred to ICU. Surgery consulted. No surgical intervention was done. 06/03/2019 had a large bloody bowel movement. 06/04/2019 had regular bowel movement. KUB showed improvement of the obstruction. Family rescinded COMMERCIAL PLUMBER status. Continue supportive measures. Monitor vitals. (6) CAD (coronary artery disease) of artery bypass graft Qualifiers: Associated angina: without angina Is this a current diagnosis for this admission?: Yes Plan: History of CABG. Continue antiplatelets, beta-blockers and GLENN. Allergic to statins. Note. Patient has not been able to take his p.o. meds due to p.o. intolerance. Family is refusing nasogastric tube placement. (7) Acute kidney injury (nontraumatic) Is this a current diagnosis for this admission?: Yes Plan: Resolved with IV fluids. (8) Hypernatremia Is this a current diagnosis for this admission?: Yes Plan: Improving. 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 Currently DNR/DNI. Continue D5 W. Sodium level tomorrow. (9) Progressive supranuclear palsy Is this a current diagnosis for this admission?: Yes Plan: DNR/DNR status. Continue supportive measures.
[2019-06-08] MEDS: MORPHINE SULFATE 10 MG/ML INJ IV PRN (16:57)
[2019-06-08] MEDS: TEMAZEPAM 15 MG CAPSULE PO SCH (21:14)
[2019-06-08] MEDS: BACLOFEN 10 MG TABLET PO SCH (21:14)
[2019-06-08] MEDS: QUETIAPINE FUMARATE 100 MG TABLET PO SCH (21:15)
[2019-06-09] MEDS: IPRATROPIUM/ALBUTEROL 0.5-2.5 MG/3 ML AMPUL NEB SCH ×4 (02:17→20:11)
[2019-06-09] MEDS: MORPHINE SULFATE 10 MG/ML INJ IV PRN (02:59)
[2019-06-09] MEDS: HEPARIN SOD (PORCINE) 5,000 UNIT/ML 1 ML VIAL SUBCUT SCH ×3 (06:29→21:31)
[2019-06-09] MEDS: LORAZEPAM INJ 2 MG/1 ML VIAL IV SCH ×3 (06:30→21:31)
[2019-06-09] MEDS: MORPHINE SULFATE 10 MG/ML INJ IV SCH ×3 (06:31→21:31)
[2019-06-09 08:52] LABS: ABSOLUTE EOSINOPHILS # (AUTO) 0.1 10^3/uL (0.0-0.6); ABSOLUTE LYMPHOCYTES (AUTO) 1.2 10^3/uL (0.5-4.7); ABSOLUTE MONOCYTES (AUTO) 1.4 10^3/uL (0.1-1.4); ABSOLUTE NEUT (AUTO) 12.5 10^3/uL (1.7-8.2); BASOPHILS % (AUTO) 0.3 % (0-2); EOSINOPHILS % (AUTO) 0.8 % (0-6); HEMATOCRIT 34.5 % (37.9-51.0); HEMOGLOBIN 11.6 g/dL (13.5-17.0); LYMPHOCYTES % (AUTO) 7.6 % (13-45); MEAN CORPUSCULAR HGB CONC 33.5 g/dL (32.0-36.0); MEAN CORPUSCULAR VOLUME 98 fl (80-97); PLATELET COUNT 200 10^3/uL (150-450); RED BLOOD COUNT 3.51 10^6/uL (4.35-5.55); RED CELL DISTRIBUTION WIDTH 14.7 % (11.5-14.0); SEGMENTED NEUTROPHILS % (AUTO) 82.3 % (42-78); TOTAL CELLS COUNTED % (AUTO) 100 %; WHITE BLOOD COUNT 15.2 10^3/uL (4.0-10.5)
[2019-06-09 09:12] LABS: ANION GAP 5 (5-19); BLOOD UREA NITROGEN 18 mg/dL (7-20); CALCIUM 7.7 mg/dL (8.4-10.2); CARBON DIOXIDE 26 mmol/L (22-30); CHLORIDE 114 mmol/L (98-107); GLUCOSE 136 mg/dL (75-110); POTASSIUM 3.4 mmol/L (3.6-5.0)
[2019-06-09] MEDS: RAMIPRIL 5 MG CAPSULE PO SCH (10:22)
[2019-06-09] MEDS: ASPIRIN 81 MG TABLET, CHEWABLE PO SCH (10:22)
[2019-06-09] MEDS: DULOXETINE HCL 30 MG CAPSULE.DR PO SCH (10:23)
[2019-06-09] MEDS: POLYETHYLENE GLYCOL 3350 POWDER 17 GM/1 PACKET PO SCH (10:23)
[2019-06-09] MEDS: AMLODIPINE BESYLATE 5 MG TABLET PO SCH (10:24)
[2019-06-09] MEDS: FAMOTIDINE 20 MG TABLET PO SCH ×2 (10:24→17:14)
[2019-06-09] MEDS: GUAIFENESIN 600 MG TABLET.SA PO SCH ×2 (10:24→17:14)
[2019-06-09] MEDS: HYDROCODONE/ACETAMINOPHEN 5-325 MG TABLET PO SCH ×2 (10:24→21:32)
[2019-06-09] MEDS: CEFTRIAXONE 2 GM/D5W RTU 2 GM/50 ML RTUPB IV SCH (10:32)
[2019-06-09] MEDS: PREDNISOLONE ACETATE 1% OPH SUSP 5 ML OD SCH (10:33)
--- NOTE | 2019-06-09 12:18 | PDOC PROGRESS REPORT ---
Subjective Progress Note for:: 06/09/19 Subjective:: SURYA ALEXIS is a 74 year old male who presents the emergency room via EMS with his family complaining of a cough. Patient has supranuclear palsy and is unable to assist with the communication of his history. Family members admit that he has had a recently increased cough with decreased oral intake and one episode of vomiting at home prior to transport to the ER. EMS reported finding a fever of 101 F at the time of transport. In the emergency room patient was found to have an elevated lactic acid, tachycardia, leukocytosis, fever, radiographic evidence of a bowel obstruction and acute urinary retention. Patient was treated with IV fluids, Fernandez catheter and an NG tube was placed. He was started on Zosyn as antibiotic therapy and was subsequently admitted to the hospital service for further evaluation treatment. 06/05/2019. Patient CODE STATUS has been changed from SUPERVISOR RUBBER COVERING to DNR/DNI per family as patient is having normal bowel movements. Overnight patient was noted to have developed tachypnea and lower upper extremity swelling. Advised patient is not communicative however is present at bedside and daughter is on the phone while I am inpatient. They are very concerned about the fact that patient is having tachypnea, and they want us to rule out PE, but also wants to start TPN as patient is not able to eat. I have advised patient family that is better to involve speech therapy to see if patient could eat on his own instead of hav ing TPN which have multiple complications. Patient's family is agreeable with the plan at this point. They want patient to be transferred to rehab once he is stable enough. 06/06/2019. No acute events overnight, patient still tachypneic, unchanged neurological symptoms, failed swallow eval. patient family still wants to pursue TPN if he fails speech therapy. I have mentioned to family the long-term solution for his p.o. intolerance with the PEG tube versus TPN however patient family wants to use TPN before transitioning to PEG tube 06/07/2019. No acute events overnight. Patient slept very tachypneic and neurological status remains unchanged. Has failed swallow eval. I have consulted Dr. Gomez weaving machine operator for further input into tachycardia, eating tachycardia could be due to low tidal volume due to neuromuscular respiratory weakness and anxiety and pain. He was restarted on BiPAP for now, continue antibiotics. 06/08/2019. No significant change. Neurologically unchanged. Patient still very tachypneic while being on BiPAP. Worsening leukocytosis, sodium level improving. Has failed swallow evaluation. Family still wants to continue treatment. Has not been receiving p.o. meds due to p.o. intolerance, patient's family does not want PEG tube or nasogastric tube. 06/09/2019. No significant change. Neurologically unchanged. Patient still very tachypneic while being on BiPAP. Leukocytosis and sodium level improving. Has failed swallow evaluation. Family still wants to continue treatment. Has not been receiving p.o. meds due to p.o. intolerance, patient's family does not want PEG tube or nasogastric tube. Reason For Visit: ACUTE BOWEL OBSTRUCTION,ACUTE URINARY RETENTION Physical Exam Vital Signs: Temp Pulse Resp BP Pulse Ox 98.1 F 121 H 42 H 119/64 97 06/09/19 08:00 06/09/19 08:00 06/09/19 08:00 06/09/19 08:00 06/09/19 08:00 Intake & Output 06/08/19 06/09/19 06/10/19 06:59 06:59 05:59 Intake Total 50 50 Output Total 1150 1475 Balance -1100 -1425 Weight 81.8 kg General appearance: PRESENT: mild distress Head exam: PRESENT: atraumatic, normocephalic Respiratory exam: PRESENT: clear to auscultation feliz, symmetrical, tachypnea. ABSENT: rales, rhonchi, wheezes GI/Abdominal exam: PRESENT: normal bowel sounds, soft. ABSENT: distended, guarding, mass, organolmegaly, rebound, tenderness Neurological exam: PRESENT: other - GCS 5 Results Laboratory Results: 06/09/19 08:39 06/09/19 08:39 06/09/19 06/09/19 08:39 08:39 WBC 15.2 H RBC 3.51 L Hgb 11.6 L Hct 34.5 L MCV 98 H MCH 33.0 MCHC 33.5 RDW 14.7 H Plt Count 200 Seg Neutrophils % 82.3 H Sodium 145.4 H Potassium 3.4 L Chloride 114 H Carbon Dioxide 26 Anion Gap 5 BUN 18 Creatinine 0.55 Est GFR ( Amer) > 60 Glucose 136 H Calcium 7.7 L Magnesium 2.6 H 05/28/19 05/28/19 05/28/19 19:10 19:10 22:25 Creatine Kinase CK-MB (CK-2) Troponin I 0.050 0.054 NT-Pro-B Natriuret Pep 2240 H 05/31/19 05/31/19 06/05/19 23:43 23:43 15:23 Creatine Kinase 106 CK-MB (CK-2) 0.74 Troponin I 0.046 NT-Pro-B Natriuret Pep 358 Impressions: Abdomen/Pelvis CT 05/28/19 20:11 IMPRESSION: High-grade distal small bowel obstruction with transition point in the mid pelvis, likely from mechanical bowel obstruction. Small Bowel X-Ray 05/31/19 00:00 IMPRESSION: No oral contrast seen in the colon on the 22 hour delayed film, consistent with obstruction. Chest X-Ray 06/04/19 00:00 IMPRESSION: Asymmetric opacity in the left retrocardiac space that could represent atelectasis or pneumonia. Correlation with clinical findings is recommended. KUB X-Ray 06/04/19 07:00 IMPRESSION: Unchanged radiographic appearance of the abdomen with air- filled/distended loops of small bowel in the mid abdomen that measure up to 4.1 cm in diameter. Lung Scan-VQ NM 06/05/19 09:20 IMPRESSION: No perfusion abnormality of the lungs to suggest pulmonary embolism on perfusion only scintigraphic lung scan. Assessment and Plan - Diagnosis (1) Acute respiratory failure Qualifiers: Respiratory failure complication: unspecified whether with hypoxia or hypercapnia Qualified Code(s): J96.00 - Acute respiratory failure, unspecified whether with hypoxia or hypercapnia Is this a current diagnosis for this admission?: Yes Plan: Unchanged. Worsening leukocytosis. Running fevers. Likely due to underlying pneumonia/pneumonitis. 05/27/2019. Chest x-ray asymmetric opacity in the left retrocardiac space that could represent atelectasis or pneumonia. Patient still has significant leukocytosis, tachypneic however SPO2 is WNL on 2 L. 06/05/2019. Mild hypoxia with respiratory alkalosis. VQ scan negative for PE. Continue supplemental oxygen, duo nebs, PRN BiPAP empiric IV antibiotics. 06/07/2018. Switch levofloxacin to ceftriaxone. Repeat blood culture. (2) Aspiration pneumonitis Is this a current diagnosis for this admission?: Yes Plan: Patient is febrile. Worsening leukocytosis. Due to worsening neurodegenerative disorder. Patient has advanced supranuclear palsy. I have consulted Dr. Gomez weaving machine operator and his recommendations are to con tinue BiPAP, antibiotics, Nasal trumpet suctioning every 4 hours, NG for intermittent gastric suction and anxiolytics. Continue BiPAP, antibiotics, anti-anxiety, morphine, nasal trumpet every [address] [place] rs. Patient family refusing nasogastric tube placement. (3) Tachypnea Is this a current diagnosis for this admission?: Yes Plan: Unchanged. Patient very tachypneic however has not been very hypoxic. Unfortunately due to profound neurological I have been unable to find out if he is in pain or anxious. I have consulted Dr. Gomez weaving machine operator who thinks his tachypnea could be due to underlying tidal volumes caused by neuromuscular weakness due to underlying neurodegenerative disorder as well as anxiety and pain. He is suggesting BiPAP, continuation of antibiotics, Nasal trumpet suctioning every 4 hours, NG for intermittent gastric suction and anxiolytics. Continue BiPAP, anxiety lytics, morphine, nasal trumpet every 4 hours. Patient family refusing nasogastric tube placement. (4) Acute exacerbation of CHF (congestive heart failure) Qualifiers: Heart failure type: unspecified Qualified Code(s): I50.9 - Heart failure, unspecified Is this a current diagnosis for this admission?: Yes Plan: Appears euvolemic based on physical examination. This was likely due to aggressive volume resuscitation for underlying hypernatremia and CAD medications were on hold. Appears euvolemic. DC IV Lasix. proBNP 358 down from 2240. Continue monitoring volume status, and vitals. Note. Patient has not been able to take his p.o. meds due to p.o. intolerance. Family is refusing nasogastric tube placement. (5) Small bowel obstruction Is this a current diagnosis for this admission?: Yes Plan: Resolved. Normal bowel movements. Initially was transferred to ICU. Surgery consulted. No surgical intervention was done. 06/03/2019 had a large bloody bowel movement. 06/04/2019 had regular bowel movement. KUB showed improvement of the obstruction. Family rescinded SUPERVISOR RUBBER COVERING status. Continue supportive measures. Monitor vitals. (6) CAD (coronary artery disease) of artery bypass graft Qualifiers: Associated angina: without angina Is this a current diagnosis for this admission?: Yes Plan: History of CABG. Continue antiplatelets, beta-blockers and GLENN. Allergic to statins. Note. Patient has not been able to take his p.o. meds due to p.o. intolerance. Family is refusing nasogastric tube placement. (7) Acute kidney injury (nontraumatic) Is this a current diagnosis for this admission?: Yes Plan: Resolved with IV fluids. (8) Hypernatremia Is this a current diagnosis for this admission?: Yes Plan: Resovled. Patient's SUPERVISOR RUBBER COVERING status has been rescinded by family. Currently DNR/DNI. [facility] D5W to D5W / NS. (9) Progressive supranuclear palsy Is this a current diagnosis for this admission?: Yes Plan: DNR/DNR status. Continue supportive measures.
[2019-06-09] MEDS ORDERED: POTASSI CL 20 MEQ/50 ML RIDER 20 MEQ/50 ML RTUPB IV ONE (12:19)
[2019-06-09] MEDS: BACLOFEN 10 MG TABLET PO SCH (21:31)
[2019-06-09] MEDS: TEMAZEPAM 15 MG CAPSULE PO SCH (21:32)
[2019-06-09] MEDS: QUETIAPINE FUMARATE 100 MG TABLET PO SCH (21:32)
[2019-06-10] MEDS: IPRATROPIUM/ALBUTEROL 0.5-2.5 MG/3 ML AMPUL NEB SCH ×4 (02:21→20:15)
[2019-06-10] MEDS: MORPHINE SULFATE 10 MG/ML INJ IV SCH ×3 (05:13→21:26)
[2019-06-10] MEDS: LORAZEPAM INJ 2 MG/1 ML VIAL IV SCH ×3 (05:14→21:25)
[2019-06-10] MEDS: HEPARIN SOD (PORCINE) 5,000 UNIT/ML 1 ML VIAL SUBCUT SCH ×3 (05:14→21:27)
[2019-06-10] MEDS: DEXTROSE 5%-1/4 NORMAL SALINE 1,000 ML IV PRN (05:15)
[2019-06-10 05:38] LABS: ABSOLUTE BASOPHILS # (AUTO) 0.1 10^3/uL (0.0-0.2); ABSOLUTE EOSINOPHILS # (AUTO) 0.2 10^3/uL (0.0-0.6); ABSOLUTE LYMPHOCYTES (AUTO) 1.4 10^3/uL (0.5-4.7); ABSOLUTE MONOCYTES (AUTO) 1.5 10^3/uL (0.1-1.4); ABSOLUTE NEUT (AUTO) 11.8 10^3/uL (1.7-8.2); BASOPHILS % (AUTO) 0.8 % (0-2); EOSINOPHILS % (AUTO) 1.1 % (0-6); HEMATOCRIT 36.1 % (37.9-51.0); HEMOGLOBIN 12.1 g/dL (13.5-17.0); LYMPHOCYTES % (AUTO) 9.2 % (13-45); MEAN CORPUSCULAR HEMOGLOBIN 32.7 pg (27.0-33.4); MEAN CORPUSCULAR HGB CONC 33.4 g/dL (32.0-36.0); MEAN CORPUSCULAR VOLUME 98 fl (80-97); MONOCYTES % (AUTO) 9.8 % (3-13); PLATELET COUNT 278 10^3/uL (150-450); RED BLOOD COUNT 3.68 10^6/uL (4.35-5.55); RED CELL DISTRIBUTION WIDTH 14.7 % (11.5-14.0); SEGMENTED NEUTROPHILS % (AUTO) 79.1 % (42-78); TOTAL CELLS COUNTED % (AUTO) 100 %; WHITE BLOOD COUNT 14.9 10^3/uL (4.0-10.5)
[2019-06-10 06:00] LABS: ALBUMIN 2.3 g/dL (3.5-5.0); ALKALINE PHOSPHATASE 141 U/L (38-126); ASPARTATE AMINO TRANSFERASE 89 U/L (17-59); BILIRUBIN,DIRECT 0.6 mg/dL (0.0-0.4); BILIRUBIN,TOTAL 1.1 mg/dL (0.2-1.3); BLOOD UREA NITROGEN 18 mg/dL (7-20); CARBON DIOXIDE 28 mmol/L (22-30); GLUCOSE 115 mg/dL (75-110); POTASSIUM 3.7 mmol/L (3.6-5.0); TOTAL PROTEIN 5.9 g/dL (6.3-8.2)
[2019-06-10 06:06] LABS: ANION GAP 5 (5-19); CHLORIDE 110 mmol/L (98-107)
[2019-06-10] MEDS: HYDROCODONE/ACETAMINOPHEN 5-325 MG TABLET PO SCH ×2 (09:51→21:27)
[2019-06-10] MEDS: DULOXETINE HCL 30 MG CAPSULE.DR PO SCH (09:51)
[2019-06-10] MEDS: AMLODIPINE BESYLATE 5 MG TABLET PO SCH (09:51)
[2019-06-10] MEDS: GUAIFENESIN 600 MG TABLET.SA PO SCH ×2 (09:51→17:47)
[2019-06-10] MEDS: RAMIPRIL 5 MG CAPSULE PO SCH (09:51)
[2019-06-10] MEDS: POLYETHYLENE GLYCOL 3350 POWDER 17 GM/1 PACKET PO SCH (09:51)
[2019-06-10] MEDS: FAMOTIDINE 20 MG TABLET PO SCH ×2 (09:51→17:47)
[2019-06-10] MEDS: ASPIRIN 81 MG TABLET, CHEWABLE PO SCH (09:51)
[2019-06-10] MEDS: PREDNISOLONE ACETATE 1% OPH SUSP 5 ML OD SCH (10:13)
[2019-06-10] MEDS: CEFTRIAXONE 2 GM/D5W RTU 2 GM/50 ML RTUPB IV SCH (10:14)
--- NOTE | 2019-06-10 11:11 | PDOC PROGRESS REPORT ---
Subjective Progress Note for:: 06/10/19 Subjective:: SURYA ALEXIS is a 74 year old male who presents the emergency room via EMS with his family complaining of a cough. Patient has supranuclear palsy and is unable to assist with the communication of his history. Family members admit that he has had a recently increased cough with decreased oral intake and one episode of vomiting at home prior to transport to the ER. EMS reported finding a fever of 101 F at the time of transport. In the emergency room patient was found to have an elevated lactic acid, tachycardia, leukocytosis, fever, radiographic evidence of a bowel obstruction and acute urinary retention. Patient was treated with IV fluids, Fernandez catheter and an NG tube was placed. He was started on Zosyn as antibiotic therapy and was subsequently admitted to the hospital service for further evaluation treatment. 06/05/2019. Patient CODE STATUS has been changed from TEST ENGINE EVALUATOR to DNR/DNI per family as patient is having normal bowel movements. Overnight patient was noted to have developed tachypnea and lower upper extremity swelling. Advised patient is not communicative however is present at bedside and daughter is on the phone while I am inpatient. They are very concerned about the fact that patient is having tachypnea, and they want us to rule out PE, but also wants to start TPN as patient is not able to eat. I have advised patient family that is better to involve speech therapy to see if patient could eat on his own instead of hav ing TPN which have multiple complications. Patient's family is agreeable with the plan at this point. They want patient to be transferred to rehab once he is stable enough. 06/06/2019. No acute events overnight, patient still tachypneic, unchanged neurological symptoms, failed swallow eval. patient family still wants to pursue TPN if he fails speech therapy. I have mentioned to family the long-term solution for his p.o. intolerance with the PEG tube versus TPN however patient family wants to use TPN before transitioning to PEG tube 06/07/2019. No acute events overnight. Patient slept very tachypneic and neurological status remains unchanged. Has failed swallow eval. I have consulted Dr. Gomez base wad operator adjuster for further input into tachycardia, eating tachycardia could be due to low tidal volume due to neuromuscular respiratory weakness and anxiety and pain. He was restarted on BiPAP for now, continue antibiotics. 06/08/2019. No significant change. Neurologically unchanged. Patient still very tachypneic while being on BiPAP. Worsening leukocytosis, sodium level improving. Has failed swallow evaluation. Family still wants to continue treatment. Has not been receiving p.o. meds due to p.o. intolerance, patient's family does not want PEG tube or nasogastric tube. 06/09/2019. No significant change. Neurologically unchanged. Patient still very tachypneic while being on BiPAP. Leukocytosis and sodium level improving. Has failed swallow evaluation. Family still wants to continue treatment. Has not been receiving p.o. meds due to p.o. intolerance, patient's family does not want PEG tube or nasogastric tube. 06/10/2019. No significant changes compared to yesterday, patient is still tachypneic, and occasionally closes his eyes to command otherwise neurologically remains the same, is at the bedside who stating that there is still discussing TEST ENGINE EVALUATOR with her family however they have not made final decision and they also like to continue current treatment. Reason For Visit: ACUTE BOWEL OBSTRUCTION,ACUTE URINARY RETENTION Physical Exam Vital Signs: Temp Pulse Resp BP Pulse Ox 97.8 F 118 H 48 H 123/71 96 06/10/19 09:19 06/10/19 09:19 06/10/19 09:19 06/10/19 09:19 06/10/19 09:19 Intake & Output 06/09/19 06/10/19 06/11/19 07:59 06:59 06:59 Intake Total 0 Output Total 0 Balance 0 Weight Results Laboratory Results: 06/10/19 05:16 06/10/19 05:16 06/10/19 06/10/19 05:16 05:16 WBC 14.9 H RBC 3.68 L Hgb 12.1 L Hct 36.1 L MCV 98 H MCH 32.7 MCHC 33.4 RDW 14.7 H Plt Count 278 Seg Neutrophils % 79.1 H Sodium 142.7 Potassium 3.7 Chloride 110 H Carbon Dioxide 28 Anion Gap 5 BUN 18 Creatinine 0.62 Est GFR ( Amer) > 60 Glucose 115 H Calcium 8.0 L Total Bilirubin 1.1 AST 89 H Alkaline Phosphatase 141 H Total Protein 5.9 L Albumin 2.3 L 05/28/19 05/28/1905/28/19 19:10 19:10 22:25 Creatine Kinase CK-MB (CK-2) Troponin I 0.050 0.054 NT-Pro-B Natriuret Pep 2240 H 05/31/19 05/31/19 06/05/19 23:43 23:43 15:23 Creatine Kinase 106 CK-MB (CK-2) 0.74 Troponin I 0.046 NT-Pro-B Natriuret Pep 358 Impressions: Abdomen/Pelvis CT 05/28/19 20:11 IMPRESSION: High-grade distal small bowel obstruction with transition point in the mid pelvis, likely from mechanical bowel obstruction. Small Bowel X-Ray 05/31/19 00:00 IMPRESSION: No oral contrast seen in the colon on the 22 hour delayed film, consistent with obstruction. Chest X-Ray 06/04/19 00:00 IMPRESSION: Asymmetric opacity in the left retrocardiac space that could represent atelectasis or pneumonia. Correlation with clinical findings is recommended. KUB X-Ray 06/04/19 07:00 IMPRESSION: Unchanged radiographic appearance of the abdomen with air- filled/distended loops of small bowel in the mid abdomen that measure up to 4.1 cm in diameter. Lung Scan-VQ NM 06/05/19 09:20 IMPRESSION: No perfusion abnormality of the lungs to suggest pulmonary embolism on perfusion only scintigraphic lung scan. Assessment and Plan - Diagnosis (1) Acute respiratory failure Qualifiers: Respiratory failure complication: unspecified whether with hypoxia or hypercapnia Qualified Code(s): J96.00 - Acute respiratory failure, unspecified whether with hypoxia or hypercapnia Is this a current diagnosis for this admission?: Yes Plan: Unchanged. Leukocytosis improving. Afebrile for the last 24 hours. Likely due to underlying pneumonia/pneumonitis. 05/27/2019. Chest x-ray asymmetric opacity in the left retrocardiac space that could represent atelectasis or pneumonia. Patient still has significant leukocytosis, tachypneic however SPO2 is WNL on 2 L. 06/05/2019. Mild hypoxia with respiratory alkalosis. VQ scan negative for PE. Continue supplemental oxygen, duo nebs, PRN BiPAP empiric IV antibiotics. 06/07/2018. Switch levofloxacin to ceftriaxone. Repeat blood culture negative so far. (2) Aspiration pneumonitis Is this a current diagnosis for this admission?: Yes Plan: Patient is febrile. Worsening leukocytosis. Due to worsening neurodegenerative disorder. Patient has advanced supranuclear palsy. I have consulted Dr. Gomez base wad operator adjuster and his recommendations are to continue BiPAP, antibiotics, Nasal trumpet suctioning every 4 hours, NG for intermittent gastric suction and anxiolytics. Continue BiPAP, antibiotics, anti-anxiety, morphine, nasal trumpet every 4 hours. Patient family refusing nasogastric tube or PEG tube placement. (3) Tachypnea Is this a current diagnosis for this admission?: Yes Plan: Unchanged. Patient very tachypneic however has not been very hypoxic. Unfortunately due to profound neurological I have been unable to find out if he is in pain or anxious. I have consulted Dr. Gomez base wad operator adjuster who thinks his tachypnea could be due to underlying tidal volumes caused by neuromuscular weakness due to underlying neurodegenerative disorder as well as anxiety and pain. He is suggesting BiPAP, continuation of antibiotics, Nasal trumpet suctioning every 4 hours, NG for intermittent gastric suction and anxiolytics. Continue BiPAP, anxiety lytics, morphine, nasal trumpet every 4 hours. Patient family refusing nasogastric tube placement. (4) Acute exacerbation of CHF (congestive heart failure) Qualifiers: Heart failure type: unspecified Qualified Code(s): I50.9 - Heart failure, unspecified Is this a current diagnosis for this admission?: Yes Plan: Appears euvolemic based on physical examination. This was likely due to aggressive volume resuscitation for underlying hypernatremia and CAD medications were on hold. Appears euvolemic. DC IV Lasix. proBNP 358 down from 2240. Continue monitoring volume status, and vitals. Note. Patient has not been able to take his p.o. meds due to p.o. intolerance. Family is refusing nasogastric tube placement. (5) Small bowel obstruction Is this a current diagnosis for this admission?: Yes Plan: Resolved. Normal bowel movements. Initially was transferred to ICU. Surgery consulted. No surgical intervention was done. 06/03/2019 had a large bloody bowel movement. 06/04/2019 had regular bowel movement. KUB showed improvement of the obstruction. Family rescinded TEST ENGINE EVALUATOR status. Continue supportive measures. Monitor vitals. (6) CAD (coronary artery disease) of artery bypass graft Qualifiers: Associated angina: without angina Is this a current diagnosis for this admission?: Yes Plan: History of CABG. Continue antiplatelets, beta-blockers and GLENN. Allergic to statins. Note. Patient has not been able to take his p.o. meds due to p.o. intolerance. Family is refusing nasogastric tube placement. (7) Acute kidney injury (nontraumatic) Is this a current diagnosis for this admission?: Yes Plan: Resolved with IV fluids. (8) Hypernatremia Is this a current diagnosis for this admission?: Yes Plan: Resovled. Patient's TEST ENGINE EVALUATOR status has been rescinded by family. Currently DNR/DNI. [facility] D5W to D5W 08/11 NS. BMP tomorrow. (9) Progressive supranuclear palsy Is this a current diagnosis for this admission?: Yes Plan: DNR/DNR status. Continue supportive measures.
[2019-06-10] MEDS: MORPHINE SULFATE 10 MG/ML INJ IV PRN (15:29)
[2019-06-10] MEDS: BACLOFEN 10 MG TABLET PO SCH (21:27)
[2019-06-10] MEDS: TEMAZEPAM 15 MG CAPSULE PO SCH (21:27)
[2019-06-10] MEDS: QUETIAPINE FUMARATE 100 MG TABLET PO SCH (21:27)
[2019-06-11] MEDS: IPRATROPIUM/ALBUTEROL 0.5-2.5 MG/3 ML AMPUL NEB SCH ×4 (02:14→20:04)
[2019-06-11] MEDS: LORAZEPAM INJ 2 MG/1 ML VIAL IV SCH ×3 (05:09→21:18)
[2019-06-11] MEDS: HEPARIN SOD (PORCINE) 5,000 UNIT/ML 1 ML VIAL SUBCUT SCH ×3 (05:10→21:18)
[2019-06-11] MEDS: DEXTROSE 5%-1/4 NORMAL SALINE 1,000 ML IV PRN ×2 (05:10→18:34)
[2019-06-11] MEDS: MORPHINE SULFATE 10 MG/ML INJ IV SCH ×3 (05:10→21:17)
[2019-06-11 05:27] LABS: ABSOLUTE BASOPHILS # (AUTO) 0.1 10^3/uL (0.0-0.2); ABSOLUTE EOSINOPHILS # (AUTO) 0.2 10^3/uL (0.0-0.6); ABSOLUTE LYMPHOCYTES (AUTO) 0.8 10^3/uL (0.5-4.7); ABSOLUTE NEUT (AUTO) 8.4 10^3/uL (1.7-8.2); BASOPHILS % (AUTO) 0.6 % (0-2); EOSINOPHILS % (AUTO) 2.2 % (0-6); HEMATOCRIT 33.4 % (37.9-51.0); HEMOGLOBIN 11.3 g/dL (13.5-17.0); MEAN CORPUSCULAR HEMOGLOBIN 33.1 pg (27.0-33.4); MEAN CORPUSCULAR HGB CONC 33.8 g/dL (32.0-36.0); MEAN CORPUSCULAR VOLUME 98 fl (80-97); MONOCYTES % (AUTO) 9.5 % (3-13); PLATELET COUNT 262 10^3/uL (150-450); RED BLOOD COUNT 3.41 10^6/uL (4.35-5.55); RED CELL DISTRIBUTION WIDTH 14.3 % (11.5-14.0); SEGMENTED NEUTROPHILS % (AUTO) 79.7 % (42-78); TOTAL CELLS COUNTED % (AUTO) 100 %; WHITE BLOOD COUNT 10.5 10^3/uL (4.0-10.5)
[2019-06-11 05:56] LABS: ANION GAP 7 (5-19); BLOOD UREA NITROGEN 17 mg/dL (7-20); CALCIUM 7.9 mg/dL (8.4-10.2); CARBON DIOXIDE 26 mmol/L (22-30); CHLORIDE 112 mmol/L (98-107); GLUCOSE 114 mg/dL (75-110); POTASSIUM 3.7 mmol/L (3.6-5.0)
[2019-06-11] MEDS: MORPHINE SULFATE 10 MG/ML INJ IV PRN (09:49)
--- NOTE | 2019-06-11 10:31 | PDOC PROGRESS REPORT ---
Subjective Progress Note for:: 06/11/19 Subjective:: SURYA ALEXIS is a 74 year old male who presents the emergency room via EMS with his family complaining of a cough. Patient has supranuclear palsy and is unable to assist with the communication of his history. Family members admit that he has had a recently increased cough with decreased oral intake and one episode of vomiting at home prior to transport to the ER. EMS reported finding a fever of 101 F at the time of transport. In the emergency room patient was found to have an elevated lactic acid, tachycardia, leukocytosis, fever, radiographic evidence of a bowel obstruction and acute urinary retention. Patient was treated with IV fluids, Fernandez catheter and an NG tube was placed. He was started on Zosyn as antibiotic therapy and was subsequently admitted to the hospital service for further evaluation treatment. 06/05/2019. Patient CODE STATUS has been changed from EDUCATIONAL ADVISOR to DNR/DNI per family as patient is having normal bowel movements. Overnight patient was noted to have developed tachypnea and lower upper extremity swelling. Advised patient is not communicative however is present at bedside and daughter is on the phone while I am inpatient. They are very concerned about the fact that patient is having tachypnea, and they want us to rule out PE, but also wants to start TPN as patient is not able to eat. I have advised patient family that is better to involve speech therapy to see if patient could eat on his own instead of hav ing TPN which have multiple complications. Patient's family is agreeable with the plan at this point. They want patient to be transferred to rehab once he is stable enough. 06/06/2019. No acute events overnight, patient still tachypneic, unchanged neurological symptoms, failed swallow eval. patient family still wants to pursue TPN if he fails speech therapy. I have mentioned to family the long-term solution for his p.o. intolerance with the PEG tube versus TPN however patient family wants to use TPN before transitioning to PEG tube 06/07/2019. No acute events overnight. Patient slept very tachypneic and neurological status remains unchanged. Has failed swallow eval. I have consulted Dr. Gomez technology teacher for further input into tachycardia, eating tachycardia could be due to low tidal volume due to neuromuscular respiratory weakness and anxiety and pain. He was restarted on BiPAP for now, continue antibiotics. 06/08/2019. No significant change. Neurologically unchanged. Patient still very tachypneic while being on BiPAP. Worsening leukocytosis, sodium level improving. Has failed swallow evaluation. Family still wants to continue treatment. Has not been receiving p.o. meds due to p.o. intolerance, patient's family does not want PEG tube or nasogastric tube. 06/09/2019. No significant change. Neurologically unchanged. Patient still very tachypneic while being on BiPAP. Leukocytosis and sodium level improving. Has failed swallow evaluation. Family still wants to continue treatment. Has not been receiving p.o. meds due to p.o. intolerance, patient's family does not want PEG tube or nasogastric tube. 06/10/2019. No significant changes compared to yesterday, patient is still tachypneic, and occasionally closes his eyes to command otherwise neurologically remains the same, is at the bedside who stating that there is still discussing EDUCATIONAL ADVISOR with her family however they have not made final decision and they also like to continue current treatment. 06/11/2019. No significant changes compared to yesterday, patient is still tachypneic, neurologically remains the same, is at the bedside who stating that there is still discussing EDUCATIONAL ADVISOR with her family however she is waiting for her daughter who is coming from [place], they like to continue current treatment meanwhile. Reason For Visit: ACUTE BOWEL OBSTRUCTION,ACUTE URINARY RETENTION Physical Exam Vital Signs: Temp Pulse Resp BP Pulse Ox 98.1 F 88 48 H 129/70 H 93 06/10/19 20:28 06/11/19 07:55 06/11/19 07:55 06/10/19 20:28 06/11/19 07:55 Intake & Output 06/10/19 06/11/19 06/12/19 06:59 06:59 06:59 Intake Total 1050 Output Total 575 Balance 475 Weight General appearance: PRESENT: no acute distress, well-developed, well-nourished Respiratory exam: PRESENT: clear to auscultation feliz, tachypnea. ABSENT: rales, rhonchi, wheezes Cardiovascular exam: PRESENT: RRR. ABSENT: diastolic murmur, rubs, systolic murmur Neurological exam: PRESENT: other - GCS 4-5 Results Laboratory Results: 06/11/19 04:48 06/11/19 04:48 06/11/19 06/11/19 04:48 04:48 WBC 10.5 RBC 3.41 L Hgb 11.3 L Hct 33.4 L MCV 98 H MCH 33.1 MCHC 33.8 RDW 14.3 H Plt Count 262 Seg Neutrophils % 79.7 H Sodium 144.9 Potassium 3.7 Chloride 112 H Carbon Dioxide 26 Anion Gap 7 BUN 17 Creatinine 0.54 Est GFR ( Amer) > 60 Glucose 114 H Calcium 7.9 L 05/28/19 05/28/19 05/28/19 19:10 19:10 22:25 Creatine Kinase CK-MB (CK-2) Troponin I 0.050 0.054 NT-Pro-B Natriuret Pep 2240 H 05/31/19 05/31/19 06/05/19 23:43 23:43 15:23 Creatine Kinase 106 CK-MB (CK-2) 0.74 Troponin I 0.046 NT-Pro-B Natriuret Pep 358 Impressions: Abdomen/Pelvis CT 05/28/19 20:11 IMPRESSION: High-grade distal small bowel obstruction with transition point in the mid pelvis, likely from mechanical bowel obstruction. Small Bowel X-Ray 05/31/19 00:00 IMPRESSION: No oral contrast seen in the colon on the 22 hour delayed film, con sistent with obstruction. Chest X-Ray 06/04/19 00:00 IMPRESSION: Asymmetric opacity in the left retrocardiac space that could represent atelectasis or pneumonia. Correlation with clinical findings is recommended. KUB X-Ray 06/04/19 07:00 IMPRESSION: Unchanged radiographic appearance of the abdomen with air- filled/distended loops of small bowel in the mid abdomen that measure up to 4.1 cm in diameter. Lung Scan-VQ NM 06/05/19 09:20 IMPRESSION: No perfusion abnormality of the lungs to suggest pulmonary embolism on perfusion only scintigraphic lung scan. Assessment and Plan - Diagnosis (1) Acute respiratory failure Qualifiers: Respiratory failure complication: unspecified whether with hypoxia or hypercapnia Qualified Code(s): J96.00 - Acute respiratory failure, unspecified whether with hypoxia or hypercapnia Is this a current diagnosis for this admission?: Yes Plan: Unchanged. tachypneic however SPO2 is WNL on BiPAP . Leukocytosis resolved. Afebrile. Likely due to underlying pneumonia/pneumonitis. 05/27/2019. Chest x-ray asymmetric opacity in the left retrocardiac space that could represent atelectasis or pneumonia. Patient still has significant leukocytosis, 06/05/2019. Mild hypoxia with respiratory alkalosis. VQ scan negative for PE. Continue supplemental oxygen, duo nebs, PRN BiPAP empiric IV antibiotics. 06/07/2018. Switch levofloxacin to ceftriaxone. Repeat blood culture negative so far. (2) Aspiration pneumonitis Is this a current diagnosis for this admission?: Yes Plan: Afebrile, WBC wnl. Due to worsening neurodegenerative disorder. Patient has advanced supranuclear palsy. I have consulted Dr. Gomez technology teacher and his recommendations are to continue BiPAP, antibiotics, Nasal trumpet suctioning every 4 hours, NG for intermittent gastric suction and anxiolytics. Continue BiPAP, antibiotics, anti-anxiety, morphine, nasal trumpet every 4 hours. Patient family refusing nasogastric tube or PEG tube placement. (3) Tachypnea Is this a current diagnosis for this admission?: Yes Plan: Unchanged. Patient very tachypneic however has not been very hypoxic. Unfortunately due to profound neurological I have been unable to find out if he is in pain or anxious. I have consulted Dr. Gomez technology teacher who thinks his tachypnea could be due to underlying tidal volumes caused by neuromuscular weakness due to underlying neurodegenerative disorder as well as anxiety and pain. He is suggesting BiPAP, continuation of antibiotics, Nasal trumpet suctioning every 4 hours, NG for intermittent gastric suction and anxiolytics. Continue BiPAP, anxiety lytics, morphine, nasal trumpet every 4 hours. Patient family refusing nasogastric tube placement. (4) Acute exacerbation of CHF (congestive heart failure) Qualifiers: Heart failure type: unspecified Qualified Code(s): I50.9 - Heart failure, unspecified Is this a current diagnosis for this admission?: Yes Plan: Appears euvolemic based on physical examination. This was likely due to aggressive volume resuscitation for underlying hypernatremia and CAD medications were on hold. Appears euvolemic. DC IV Lasix. proBNP 358 down from 2240. Continue monitoring volume status, and vitals. Note. Patient has not been able to take his p.o. meds due to p.o. intolerance. Family is refusing nasogastric tube placement. (5) Small bowel obstruction Is this a current diagnosis for this admission?: Yes Plan: Resolved. Normal bowel movements. Initially was transferred to ICU. Surgery consulted. No surgical intervention was done. 06/03/2019 had a large bloody bowel movement. 06/04/2019 had regular bowel movement. KUB showed improvement of the obstruction. Family rescinded EDUCATIONAL ADVISOR status. Continue supportive measures. Monitor vitals. (6) CAD (coronary artery disease) of artery bypass graft Qualifiers: Associated angina: without angina Is this a current diagnosis for this admission?: Yes Plan: History of CABG. Continue antiplatelets, beta-blockers and GLENN. Allergic to statins. Note. Patient has not been able to take his p.o. meds due to p.o. intolerance. Family is refusing nasogastric tube placement. (7) Acute kidney injury (nontraumatic) Is this a current diagnosis for this admission?: Yes Plan: Resolved with IV fluids. (8) Hypernatremia Is this a current diagnosis for this admission?: Yes Plan: Resovled. Patient's EDUCATIONAL ADVISOR status has been rescinded by family. Currently DNR/DNI. [facility] D5W to D5W 08/11 NS. [facility] tomorrow. (9) Progressive supranuclear palsy Is this a current diagnosis for this admission?: Yes Plan: DNR/DNR status. Continue supportive measures.
[2019-06-11] MEDS: FENTANYL 25 MCG/HR PATCH.TD72 TD SCH (10:38)
[2019-06-11] MEDS: CEFTRIAXONE 2 GM/D5W RTU 2 GM/50 ML RTUPB IV SCH (10:38)
[2019-06-11] MEDS: SCOPOLAMINE HYDROBROMIDE 1.5 MG PATCH.TD72 TD SCH (10:42)
[2019-06-11] MEDS: PREDNISOLONE ACETATE 1% OPH SUSP 5 ML OD SCH (12:09)
[2019-06-11] MEDS: RAMIPRIL 5 MG CAPSULE PO SCH (12:13)
[2019-06-11] MEDS: ASPIRIN 81 MG TABLET, CHEWABLE PO SCH (12:13)
[2019-06-11] MEDS: DULOXETINE HCL 30 MG CAPSULE.DR PO SCH (12:13)
[2019-06-11] MEDS: POLYETHYLENE GLYCOL 3350 POWDER 17 GM/1 PACKET PO SCH (12:14)
[2019-06-11] MEDS: GUAIFENESIN 600 MG TABLET.SA PO SCH ×2 (12:14→18:03)
[2019-06-11] MEDS: HYDROCODONE/ACETAMINOPHEN 5-325 MG TABLET PO SCH ×2 (12:14→21:15)
[2019-06-11] MEDS: AMLODIPINE BESYLATE 5 MG TABLET PO SCH (12:15)
[2019-06-11] MEDS: FAMOTIDINE 20 MG TABLET PO SCH ×2 (12:15→18:03)
[2019-06-11] MEDS: BACLOFEN 10 MG TABLET PO SCH (21:15)
[2019-06-11] MEDS: TEMAZEPAM 15 MG CAPSULE PO SCH (21:15)
[2019-06-11] MEDS: QUETIAPINE FUMARATE 100 MG TABLET PO SCH (21:16)
[2019-06-12] MEDS: IPRATROPIUM/ALBUTEROL 0.5-2.5 MG/3 ML AMPUL NEB SCH ×3 (02:18→13:15)
[2019-06-12] MEDS: LORAZEPAM INJ 2 MG/1 ML VIAL IV SCH (05:10)
[2019-06-12] MEDS: HEPARIN SOD (PORCINE) 5,000 UNIT/ML 1 ML VIAL SUBCUT SCH (05:10)
[2019-06-12] MEDS: MORPHINE SULFATE 10 MG/ML INJ IV SCH (05:10)
[2019-06-12] MEDS: PREDNISOLONE ACETATE 1% OPH SUSP 5 ML OD SCH (08:05)
[2019-06-12 09:18] VITALS: BP 140/71
[2019-06-12] MEDS: ASPIRIN 81 MG TABLET, CHEWABLE PO SCH (09:40)
[2019-06-12] MEDS: RAMIPRIL 5 MG CAPSULE PO SCH (09:40)
[2019-06-12] MEDS: DULOXETINE HCL 30 MG CAPSULE.DR PO SCH (09:41)
[2019-06-12] MEDS: POLYETHYLENE GLYCOL 3350 POWDER 17 GM/1 PACKET PO SCH (09:41)
[2019-06-12] MEDS: GUAIFENESIN 600 MG TABLET.SA PO SCH (09:41)
[2019-06-12] MEDS: AMLODIPINE BESYLATE 5 MG TABLET PO SCH (09:42)
[2019-06-12] MEDS: FAMOTIDINE 20 MG TABLET PO SCH (09:42)
[2019-06-12] MEDS: CEFTRIAXONE 2 GM/D5W RTU 2 GM/50 ML RTUPB IV SCH (09:46)
[2019-06-12] MEDS: DEXTROSE 5%-1/4 NORMAL SALINE 1,000 ML IV PRN (09:49)
[2019-06-12] MEDS: MORPHINE SULFATE 10 MG/ML INJ IV PRN ×4 (10:11→16:44)
[2019-06-12 11:29] LABS: HEMATOCRIT 35.6 % (37.9-51.0); MEAN CORPUSCULAR HGB CONC 33.7 g/dL (32.0-36.0); MEAN CORPUSCULAR VOLUME 98 fl (80-97); RED BLOOD COUNT 3.63 10^6/uL (4.35-5.55); RED CELL DISTRIBUTION WIDTH 14.4 % (11.5-14.0)
[2019-06-12 11:57] LABS: ABSOLUTE LYMPHOCYTES# (MANUAL) 0.2 10^3/uL (0.5-4.7); ABSOLUTE MONOCYTES # (MANUAL) 0.8 10^3/uL (0.1-1.4); BASOPHILS % (MANUAL) 0 % (0-2); EOSINOPHILS % (MANUAL) 0 % (0-6); LYMPHOCYTES % (MANUAL) 1 % (13-45); MONOCYTES % (MANUAL) 4 % (3-13); SEGMENTED NEUTROPHILS % (MAN) 95 % (42-78); TOTAL CELLS COUNTED 100
[2019-06-12 11:58] LABS: ANISOCYTOSIS SLIGHT; PLATELET CLUMPS PRESENT; PLATELET COMMENT ADEQUATE; PLATELET COUNT 292 10^3/uL (150-450); POLYCHROMASIA SLIGHT
[2019-06-12] MEDS: LORAZEPAM INJ 2 MG/1 ML VIAL IV PRN ×2 (12:41→16:44)
[2019-06-12] MEDS: ACETAMINOPHEN 650 MG SUPP.RECT PR PRN (12:45)
[2019-06-12] MEDS: DEXTROSE 5%-NORMAL SALINE 1,000 ML IV PRN (12:52)
--- NOTE | 2019-06-12 15:59 | PDOC PROGRESS REPORT ---
Subjective Progress Note for:: 06/12/19 Subjective:: SURYA ALEXIS is a 74 year old male who presents the emergency room via EMS with his family complaining of a cough. Patient has supranuclear palsy and is unable to assist with the communication of his history. Family members admit that he has had a recently increased cough with decreased oral intake and one episode of vomiting at home prior to transport to the ER. EMS reported finding a fever of 101 F at the time of transport. In the emergency room patient was found to have an elevated lactic acid, tachycardia, leukocytosis, fever, radiographic evidence of a bowel obstruction and acute urinary retention. Patient was treated with IV fluids, Frenandez catheter and an NG tube was placed. He was started on Zosyn as antibiotic therapy and was subsequently admitted to the hospital service for further evaluation treatment. 06/05/2019. Patient CODE STATUS has been changed from DESIGN ENGINEER AGRICULTURAL EQUIPMENT to DNR/DNI per family as patient is having normal bowel movements. Overnight patient was noted to have developed tachypnea and lower upper extremity swelling. Advised patient is not communicative however is present at bedside and daughter is on the phone while I am inpatient. They are very concerned about the fact that patient is having tachypnea, and they want us to rule out PE, but also wants to start TPN as patient is not able to eat. I have advised patient family that is better to involve speech therapy to see if patient could eat on his own instead of hav ing TPN which have multiple complications. Patient's family is agreeable with the plan at this point. They want patient to be transferred to rehab once he is stable enough. 06/06/2019. No acute events overnight, patient still tachypneic, unchanged neurological symptoms, failed swallow eval. patient family still wants to pursue TPN if he fails speech therapy. I have mentioned to family the long-term solution for his p.o. intolerance with the PEG tube versus TPN however patient family wants to use TPN before transitioning to PEG tube 06/07/2019. No acute events overnight. Patient slept very tachypneic and neurological status remains unchanged. Has failed swallow eval. I have consulted Dr. Gomez resource forester for further input into tachycardia, eating tachycardia could be due to low tidal volume due to neuromuscular respiratory weakness and anxiety and pain. He was restarted on BiPAP for now, continue antibiotics. 06/08/2019. No significant change. Neurologically unchanged. Patient still very tachypneic while being on BiPAP. Worsening leukocytosis, sodium level improving. Has failed swallow evaluation. Family still wants to continue treatment. Has not been receiving p.o. meds due to p.o. intolerance, patient's family does not want PEG tube or nasogastric tube. 06/09/2019. No significant change. Neurologically unchanged. Patient still very tachypneic while being on BiPAP. Leukocytosis and sodium level improving. Has failed swallow evaluation. Family still wants to continue treatment. Has not been receiving p.o. meds due to p.o. intolerance, patient's family does not want PEG tube or nasogastric tube. 06/10/2019. No significant changes compared to yesterday, patient is still tachypneic, and occasionally closes his eyes to command otherwise neurologically remains the same, is at the bedside who stating that there is still discussing DESIGN ENGINEER AGRICULTURAL EQUIPMENT with her family however they have not made final decision and they also like to continue current treatment. 06/11/2019. No significant changes compared to yesterday, patient is still tachypneic, neurologically remains the same, is at the bedside who stating that there is still discussing DESIGN ENGINEER AGRICULTURAL EQUIPMENT with her family however she is waiting for her daughter who is coming from [place], they like to continue current treatment meanwhile. 06/12/2019. Had an extensive discussion with his and children and they have all decided to switch CODE STATUS to comfort measures but as per 's request they still want to treat his fever and continue BiPAP until tomorrow when his daughter will be in town. Reason For Visit: ACUTE BOWEL OBSTRUCTION,ACUTE URINARY RETENTION Physical Exam Vital Signs: Temp Pulse Resp BP Pulse Ox 102.3 F H 104 H 48 H 140/71 H 96 06/12/19 09:18 06/12/19 13:15 06/12/19 13:15 06/12/19 09:18 06/12/19 13:15 Intake & Output 06/11/19 06/12/19 06/13/19 06:59 06:59 06:59 Intake Total 1050 854 965 Output Total 575 300 Balance 475 554 965 General appearance: PRESENT: no acute distress, well-developed, well-nourished, other - GCS 4. Head exam: PRESENT: atraumatic, normocephalic Respiratory exam: PRESENT: decreased breath sounds, symmetrical, tachypnea Cardiovascular exam: PRESENT: RRR, tachycardia. ABSENT: diastolic murmur, rubs, systolic murmur GI/Abdominal exam: PRESENT: normal bowel sounds, soft. ABSENT: distended, g uarding, mass, organolmegaly, rebound, tenderness Neurological exam: PRESENT: other - GCS 4. Skin exam: PRESENT: warm Results Laboratory Results: 06/12/19 10:38 06/11/19 04:48 06/12/19 10:38 WBC 19.0 H RBC 3.63 L Hgb 12.0 L Hct 35.6 L MCV 98 H MCH 33.0 MCHC 33.7 RDW 14.4 H Plt Count 292 Seg Neutrophils % Not Reportable 06/06/19 11:20 Blood Blood Culture - Final NO GROWTH IN 5 DAYS 06/06/19 11:26 Blood Blood Culture - Final NO GROWTH IN 5 DAYS 05/28/19 05/28/19 05/28/19 19:10 19:10 22:25 Creatine Kinase CK-MB (CK-2) Troponin I 0.050 0.054 NT-Pro-B Natriuret Pep 2240 H 05/31/19 05/31/19 06/05/19 23:43 23:43 15:23 Creatine Kinase 106 CK-MB (CK-2) 0.74 Troponin I 0.046 NT-Pro-B Natriuret Pep 358 Impressions: Abdomen/Pelvis CT 05/28/19 20:11 IMPRESSION: High-grade distal small bowel obstruction with transition point in the mid pelvis, likely from mechanical bowel obstruction. Small Bowel X-Ray 05/31/19 00:00 IMPRESSION: No oral contrast seen in the colon on the 22 hour delayed film, consistent with obstruction. Chest X-Ray 06/04/19 00:00 IMPRESSION: Asymmetric opacity in the left retrocardiac space that could repre sent atelectasis or pneumonia. Correlation with clinical findings is recommended. KUB X-Ray 06/04/19 07:00 IMPRESSION: Unchanged radiographic appearance of the abdomen with air- filled/distended loops of small bowel in the mid abdomen that measure up to 4.1 cm in diameter. Lung Scan-VQ NM 06/05/19 09:20 IMPRESSION: No perfusion abnormality of the lungs to suggest pulmonary embolism on perfusion only scintigraphic lung scan. Assessment and Plan - Diagnosis (1) Comfort measures only status Is this a current diagnosis for this admission?: Yes Plan: Had an extensive discussion with his and children and they have all decided to switch CODE STATUS to comfort measures but as per 's request they still want to treat his fever and continue BiPAP until tomorrow when his daughter will be in town. (2) Acute respiratory failure Qualifiers: Respiratory failure complication: unspecified whether with hypoxia or hypercapnia Qualified Code(s): J96.00 - Acute respiratory failure, unspecified whether with hypoxia or hypercapnia Is this a current diagnosis for this admission?: Yes Plan: CODE STATUS changed to DESIGN ENGINEER AGRICULTURAL EQUIPMENT as of 06/12/2019. Previous plan was as below. Unchanged. tachypneic however SPO2 is WNL on BiPAP . Leukocytosis resolved. Afebrile. Likely due to underlying pneumonia/pneumonitis. 05/27/2019. Chest x-ray asymmetric opacity in the left retrocardiac space that could represent atelectasis or pneumonia. Patient still has significant leukocytosis, 06/05/2019. Mild hypoxia with respiratory alkalosis. VQ scan negative for PE. Continue supplemental oxygen, duo nebs, PRN BiPAP empiric IV antibiotics. 06/07/2018. Switch levofloxacin to ceftriaxone. Repeat blood culture negative so far. (3) Aspiration pneumonitis Is this a current diagnosis for this admission?: Yes Plan: CODE STATUS changed to DESIGN ENGINEER AGRICULTURAL EQUIPMENT as of 06/12/2019. Previous plan was as below. Afebrile, WBC wnl. Due to worsening neurodegenerative disorder. Patient has advanced supranuclear palsy. I have consulted Dr. Gomez resource forester and his recommendations are to continue BiPAP, antibiotics, Nasal trumpet suctioning every 4 hours, NG for intermittent gastric suction and anxiolytics. Continue BiPAP, antibiotics, anti-anxiety, morphine, nasal trumpet every 4 hours. Patient family refusing nasogastric tube or PEG tube placement. (4) Tachypnea Is this a current diagnosis for this admission?: Yes Plan: CODE STATUS changed to DESIGN ENGINEER AGRICULTURAL EQUIPMENT as of 06/12/2019. Previous plan was as below. Patient very tachypneic however has not been very hypoxic. Unfortunately due to profound neurological I have been unable to find out if he is in pain or anxious. I have consulted Dr. Gomez resource forester who thinks his tachypnea could be due to underlying tidal volumes caused by neuromuscular weakness due to underlying neurodegenerative disorder as well as anxiety and pain. He is suggesting BiPAP, continuation of antibiotics, Nasal trumpet suctioning every 4 hours, NG for intermittent gastric suction and anxiolytics. Continue BiPAP, anxiety lytics, morphine, nasal trumpet every 4 hours. Patient family refusing nasogastric tube placement. (5) Acute exacerbation of CHF (congestive heart failure) Qualifiers: Heart failure type: unspecified Qualified Code(s): I50.9 - Heart failure, unspecified Is this a current diagnosis for this admission?: Yes Plan: CODE STATUS changed to DESIGN ENGINEER AGRICULTURAL EQUIPMENT as of 06/12/2019. Previous plan was as below. Appears euvolemic based on physical examination. This was likely due to aggressive volume resuscitation for underlying hypernatremia and CAD medications were on hold. Appears euvolemic. DC IV Lasix. proBNP 358 down from 2240. Continue monitoring volume status, and vitals. Note. Patient has not been able to take his p.o. meds due to p.o. intolerance. Family is refusing nasogastric tube placement. (6) Small bowel obstruction Is this a current diagnosis for this admission?: Yes Plan: Resolved. Normal bowel movements. Initially was transferred to ICU. Surgery consulted. No surgical intervention was done. 06/03/2019 had a large bloody bowel movement. 06/04/2019 had regular bowel movement. KUB showed improvement of the obstruction. Family rescinded DESIGN ENGINEER AGRICULTURAL EQUIPMENT status. Continue supportive measures. Monitor vitals. (7) CAD (coronary artery disease) of artery bypass graft Qualifiers: Associated angina: without angina Is this a current diagnosis for this admission?: Yes Plan: CODE STATUS changed to DESIGN ENGINEER AGRICULTURAL EQUIPMENT as of 06/12/2019. Previous plan was as below. History of CABG. Continue antiplatelets, beta-blockers and GLENN. Allergic to statins. Note. Patient has not been able to take his p.o. meds due to p.o. intolerance. Family is refusing nasogastric tube placement. (8) Acute kidney injury (nontraumatic) Is this a current diagnosis for this admission?: Yes Plan: CODE STATUS changed to DESIGN ENGINEER AGRICULTURAL EQUIPMENT as of 06/12/2019. Previous plan was as below. Resolved with IV fluids. (9) Hypernatremia Is this a current diagnosis for this admission?: Yes Plan: CODE STATUS changed to DESIGN ENGINEER AGRICULTURAL EQUIPMENT as of 06/12/2019. Previous plan was as below. Resovled. Patient's DESIGN ENGINEER AGRICULTURAL EQUIPMENT status has been rescinded by family. Currently DNR/DNI. [facility] D5W to D5W 08/11 NS. [facility] tomorrow. (10) Progressive supranuclear palsy Is this a current diagnosis for this admission?: Yes Plan: CODE STATUS changed to DESIGN ENGINEER AGRICULTURAL EQUIPMENT as of 06/12/2019. Previous plan was as below. DNR/DNR status. Continue supportive measures.
--- NOTE | 2019-06-12 16:00 | ADVANCED CARE ---
- Diagnosis (1) Comfort measures only status Diagnosis Current: Yes (2) Acute respiratory failure Diagnosis Current: Yes (3) Aspiration pneumonitis Diagnosis Current: Yes (4) Tachypnea Diagnosis Current: Yes (5) Acute exacerbation of CHF (congestive heart failure) Diagnosis Current: Yes (6) Small bowel obstruction Diagnosis Current: Yes (7) CAD (coronary artery disease) of artery bypass graft Diagnosis Current: Yes (8) Acute kidney injury (nontraumatic) Diagnosis Current: Yes (9) Hypernatremia Diagnosis Current: Yes (10) Progressive supranuclear palsy Diagnosis Current: Yes Resuscitation Status: Comfort Measures Only Discussion: Had an extensive discussion regarding patient's underlying medical conditions and futility of continuing medical care with his and children and they have all decided to switch CODE STATUS to comfort measures but as per 's request they still want to treat his fever and continue BiPAP until tomorrow when his daughter will be in town. Care Planning Goals: DIRECTOR OF RECRUITMENT AND ADMISSIONS. Time Spent: 30
[2019-06-13] MEDS: MORPHINE SULFATE 10 MG/ML INJ IV PRN ×5 (02:38→21:37)
[2019-06-13 05:09] LABS: ANION GAP 6 (5-19); BLOOD UREA NITROGEN 14 mg/dL (7-20); CARBON DIOXIDE 26 mmol/L (22-30); CHLORIDE 112 mmol/L (98-107); GLUCOSE 119 mg/dL (75-110); POTASSIUM 4.1 mmol/L (3.6-5.0)
[2019-06-13] MEDS: DEXTROSE 5%-NORMAL SALINE 1,000 ML IV PRN (06:40)
[2019-06-13] MEDS: PREDNISOLONE ACETATE 1% OPH SUSP 5 ML OD SCH (08:27)
[2019-06-13] MEDS: LORAZEPAM INJ 2 MG/1 ML VIAL IV PRN ×3 (12:59→21:37)
--- NOTE | 2019-06-13 17:25 | PDOC PROGRESS REPORT ---
Subjective Progress Note for:: 06/13/19 Subjective:: No adverse events overnight. He remains unresponsive. He remains on BiPAP. I spoke with his family who reiterated their desire for him to be on comfort measures, but did want his antibiotics and respiratory support continued until more of his family can arrive. Reason For Visit: ACUTE BOWEL OBSTRUCTION,ACUTE URINARY RETENTION Physical Exam Vital Signs: Temp Pulse Resp BP Pulse Ox 98.8 F 104 H 45 H 140/71 H 96 06/12/19 20:16 06/12/19 13:15 06/13/19 16:00 06/12/19 09:18 06/13/19 16:00 Intake & Output 06/12/19 06/13/19 06/14/19 06:59 06:59 06:59 Intake Total 854 1855 Output Total 300 850 Balance 554 1005 General appearance: PRESENT: no acute distress Respiratory exam: PRESENT: crackles, symmetrical, tachypnea - Display Abel- Hernandez respirations at one-point. ABSENT: accessory muscle use, chest wall tenderness, prolonged expiratory phas, rhonchi, unlabored, wheezes Cardiovascular exam: PRESENT: RRR, +S1, +S2 Pulses: PRESENT: normal carotid pulses Vascular exam: PRESENT: normal capillary refill GI/Abdominal exam: PRESENT: hypoactive bowel sounds, soft. ABSENT: distended, guarding, rebound, tenderness Extremities exam: PRESENT: +1 edema. ABSENT: clubbing Musculoskeletal exam: PRESENT: normal inspection. ABSENT: deformity Neurological exam: ABSENT: awake Skin exam: PRESENT: dry, warm Results Laboratory Results: 06/12/19 10:38 06/13/19 04:15 06/13/19 04:15 Sodium 143.7 Potassium 4.1 Chloride 112 H Carbon Dioxide 26 Anion Gap 6 BUN 14 Creatinine 0.48 L Est GFR ( Amer) > 60 Glucose 119 H Calcium 8.0 L 05/28/19 05/28/19 05/28/19 19:10 19:10 22:25 Creatine Kinase CK-MB (CK-2) Troponin I 0.050 0.054 NT-Pro-B Natriuret Pep 2240 H 05/31/19 05/31/19 06/05/19 23:43 23:43 15:23 Creatine Kinase 106 CK-MB (CK-2) 0.74 Troponin I 0.046 NT-Pro-B Natriuret Pep 358 Impressions: Abdomen/Pelvis CT 05/28/19 20:11 IMPRESSION: High-grade distal small bowel obstruction with transition point in the mid pelvis, likely from mechanical bowel obstruction. Small Bowel X-Ray 05/31/19 00:00 IMPRESSION: No oral contrast seen in the colon on the 22 hour delayed film, consistent with obstruction. Chest X-Ray 06/04/19 00:00 IMPRESSION: Asymmetric opacity in the left retrocardiac space that could represent atelectasis or pneumonia. Correlation with clinical findings is recommended. KUB X-Ray 06/04/19 07:00 IMPRESSION: Unchanged radiographic appearance of the abdomen with air-filled/ distended loops of small bowel in the mid abdomen that measure up to 4.1 cm in diameter. Lung Scan-VQ NM 06/05/19 09:20 IMPRESSION: No perfusion abnormality of the lungs to suggest pulmonary embolism on perfusion only scintigraphic lung scan. 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 Previous plan was as below. Appears euvolemic based on physical examination. This was likely due to aggressive volume resuscitation for underlying hypernatremia and CAD medications were on hold. Appears euvolemic. DC IV Lasix. Continue monitoring volume status, and vitals. (2) Acute respiratory failure with hypoxia and hypercapnia Is this a current diagnosis for this admission?: Yes Plan: Continue supplemental oxygen support for reasons noted above (3) Comfort measures only status Is this a current diagnosis for this admission?: Yes Plan: As per 's request they still want to treat his fever and continue BiPAP until when his daughter will be in town. (4) Small bowel obstruction Is this a current diagnosis for this admission?: Yes Plan: Resolved. Now on comfort measures (5) Supranuclear palsies, progressive Is this a current diagnosis for this admission?: Yes - Time Time Spent with patient: 15-24 minutes
[2019-06-14] MEDS: LORAZEPAM INJ 2 MG/1 ML VIAL IV PRN ×9 (00:54→22:26)
[2019-06-14] MEDS: MORPHINE SULFATE 10 MG/ML INJ IV PRN ×9 (00:54→22:25)
[2019-06-14] MEDS: DEXTROSE 5%-NORMAL SALINE 1,000 ML IV PRN ×2 (02:53→22:28)
[2019-06-14] MEDS: SCOPOLAMINE HYDROBROMIDE 1.5 MG PATCH.TD72 TD SCH (09:51)
[2019-06-14] MEDS: PREDNISOLONE ACETATE 1% OPH SUSP 5 ML OD SCH (09:52)
--- NOTE | 2019-06-14 16:21 | PDOC PROGRESS REPORT ---
Subjective Progress Note for:: 06/14/19 Subjective:: No adverse events overnight. He has had some tachypnea and apparently when he gets the morphine it helps a little bit but it does not hold him for very long. He is on a very small dose. He remains unresponsive. Reason For Visit: ACUTE BOWEL OBSTRUCTION,ACUTE URINARY RETENTION Physical Exam Vital Signs: Temp Pulse Resp BP Pulse Ox 98.8 F 104 H 43 H 140/71 H 96 06/12/19 20:16 06/12/19 13:15 06/14/19 08:30 06/12/19 09:18 06/14/19 08:30 Intake & Output 06/13/19 06/14/19 06/15/19 06:59 06:59 06:59 Intake Total 1855 1000 Output Total 850 350 Balance 1005 650 Weight 80 kg General appearance: PRESENT: no acute distress Respiratory exam: PRESENT: crackles, symmetrical, tachypnea. ABSENT: accessory muscle use, chest wall tenderness, prolonged expiratory phas, rhonchi, unlabo red, wheezes Cardiovascular exam: PRESENT: RRR, +S1, +S2 Pulses: PRESENT: normal carotid pulses Vascular exam: PRESENT: normal capillary refill GI/Abdominal exam: PRESENT: hypoactive bowel sounds, soft. ABSENT: distended, guarding, rebound, tenderness Extremities exam: PRESENT: +1 edema. ABSENT: clubbing Musculoskeletal exam: PRESENT: normal inspection. ABSENT: deformity Neurological exam: ABSENT: awake Skin exam: PRESENT: dry, warm Results Laboratory Results: 06/12/19 10:38 06/13/19 04:15 05/28/19 05/28/19 05/28/19 19:10 19:10 22:25 Creatine Kinase CK-MB (CK-2) Troponin I 0.050 0.054 NT-Pro-B Natriuret Pep 2240 H 05/31/19 05/31/19 06/05/19 23:43 23:43 15:23 Creatine Kinase 106 CK-MB (CK-2) 0.74 Troponin I 0.046 NT-Pro-B Natriuret Pep 358 Impressions: Abdomen/Pelvis CT 05/28/19 20:11 IMPRESSION: High-grade distal small bowel obstruction with transition point in the mid pelvis, likely from mechanical bowel obstruction. Small Bowel X-Ray 05/31/19 00:00 IMPRESSION: No oral contrast seen in the colon on the 22 hour delayed film, consistent with obstruction. Chest X-Ray 06/04/19 00:00 IMPRESSION: Asymmetric opacity in the left retrocardiac space that could represent atelectasis or pneumonia. Correlation with clinical findings is recommended. KUB X-Ray 06/04/19 07:00 IMPRESSION: Unchanged radiographic appearance of the abdomen with air- filled/distended loops of small bowel in the mid abdomen that measure up to 4.1 cm in diameter. Lung Scan-VQ NM 06/05/19 09:20 IMPRESSION: No perfusion abnormality of the lungs to suggest pulmonary embolism on perfusion only scintigraphic lung scan. 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 Previous plan was as below. Appears euvolemic based on physical examination. This was likely due to aggressive volume resuscitation for underlying hypernatremia and CAD medications were on hold. Appears euvolemic. DC IV Lasix. Continue monitoring volume status, and vitals. (2) Acute respiratory failure with hypoxia and hypercapnia Is this a current diagnosis for this admission?: Yes Plan: Continue supplemental oxygen support for reasons noted above (3) Comfort measures only status Is this a current diagnosis for this admission?: Yes Plan: As per 's request they still want to treat his fever and continue BiPAP until when his daughter will be in town. I have increased his morphine to help with his tachypnea. (4) Small bowel obstruction Is this a current diagnosis for this admission?: Yes Plan: Resolved. Now on comfort measures (5) Supranuclear palsies, progressive Is this a current diagnosis for this admission?: Yes - Time Time Spent with patient: 15-24 minutes
[2019-06-14] MEDS ORDERED: KETOROLAC TROMETHAMINE INJ/PF 30 MG/1 ML SDV IV ONE (18:00)
[2019-06-15] MEDS: MORPHINE SULFATE 10 MG/ML INJ IV PRN ×7 (02:30→21:56)
[2019-06-15] MEDS: LORAZEPAM INJ 2 MG/1 ML VIAL IV PRN ×5 (02:30→21:56)
[2019-06-15] MEDS: PREDNISOLONE ACETATE 1% OPH SUSP 5 ML OD SCH (08:58)
--- NOTE | 2019-06-15 16:23 | PDOC PROGRESS REPORT ---
Subjective Progress Note for:: 06/15/19 Subjective:: SURYA ALEXIS is a 74 year old male who presents the emergency room via EMS with his family complaining of a cough. Patient has supranuclear palsy and is unable to assist with the communication of his history. Family members admit that he has had a recently increased cough with decreased oral intake and one episode of vomiting at home prior to transport to the ER. EMS reported finding a fever of 101 F at the time of transport. In the emergency room patient was found to have an elevated lactic acid, tachycardia, leukocytosis, fever, radiographic evidence of a bowel obstruction and acute urinary retention. Patient was treated with IV fluids, Fernandez catheter and an NG tube was placed. He was started on Zosyn as antibiotic therapy and was subsequently admitted to the hospital service for further evaluation treatment. 06/05/2019. Patient CODE STATUS has been changed from SUBWAY TRAIN OPERATOR to DNR/DNI per family as patient is having normal bowel movements. Overnight patient was noted to have developed tachypnea and lower upper extremity swelling. Advised patient is not communicative however is present at bedside and daughter is on the phone while I am inpatient. They are very concerned about the fact that patient is having tachypnea, and they want us to rule out PE, but also wants to start TPN as patient is not able to eat. I have advised patient family that is better to involve speech therapy to see if patient could eat on his own instead of hav ing TPN which have multiple complications. Patient's family is agreeable with the plan at this point. They want patient to be transferred to rehab once he is stable enough. 06/06/2019. No acute events overnight, patient still tachypneic, unchanged neurological symptoms, failed swallow eval. patient family still wants to pursue TPN if he fails speech therapy. I have mentioned to family the long-term solution for his p.o. intolerance with the PEG tube versus TPN however patient family wants to use TPN before transitioning to PEG tube 06/07/2019. No acute events overnight. Patient slept very tachypneic and neurological status remains unchanged. Has failed swallow eval. I have consulted Dr. Gomez electro tech for further input into tachycardia, eating tachycardia could be due to low tidal volume due to neuromuscular respiratory weakness and anxiety and pain. He was restarted on BiPAP for now, continue antibiotics. 06/08/2019. No significant change. Neurologically unchanged. Patient still very tachypneic while being on BiPAP. Worsening leukocytosis, sodium level improving. Has failed swallow evaluation. Family still wants to continue treatment. Has not been receiving p.o. meds due to p.o. intolerance, patient's family does not want PEG tube or nasogastric tube. 06/09/2019. No significant change. Neurologically unchanged. Patient still very tachypneic while being on BiPAP. Leukocytosis and sodium level improving. Has failed swallow evaluation. Family still wants to continue treatment. Has not been receiving p.o. meds due to p.o. intolerance, patient's family does not want PEG tube or nasogastric tube. 06/10/2019. No significant changes compared to yesterday, patient is still tachypneic, and occasionally closes his eyes to command otherwise neurologically remains the same, is at the bedside who stating that there is still discussing SUBWAY TRAIN OPERATOR with her family however they have not made final decision and they also like to continue current treatment. 06/11/2019. No significant changes compared to yesterday, patient is still tachypneic, neurologically remains the same, is at the bedside who stating that there is still discussing SUBWAY TRAIN OPERATOR with her family however she is waiting for her daughter who is coming from [place], they like to continue current treatment meanwhile. 06/12/2019. Had an extensive discussion with his and children and they have all decided to switch CODE STATUS to comfort measures but as per 's request they still want to treat his fever and continue BiPAP until tomorrow when his daughter will be in town. 06/15/2019. No acute events overnight. Patient is on CPAP, tachypnea seems to have improved, as per patient is still not does not communicate. wants to remove BiPAP and switch to nasal cannula. Patient is accompanied by his , daughter and son. All questions answered. Concerns addressed. Reason For Visit: ACUTE BOWEL OBSTRUCTION,ACUTE URINARY RETENTION Physical Exam Vital Signs: Temp Pulse Resp BP Pulse Ox 100.9 F H 104 H 32 H 140/71 H 94 06/14/19 22:00 06/12/19 13:15 06/15/19 12:00 06/12/19 09:18 06/15/19 08:00 Intake & Output 06/14/19 06/15/19 06/16/19 06:59 06:59 06:59 Intake Total 1000 979 Output Total 350 225 Balance 650 754 Weight 80 kg Head exam: PRESENT: atraumatic, normocephalic Respiratory exam: PRESENT: clear to auscultation feliz. ABSENT: rales, rhonchi, wheezes Cardiovascular exam: PRESENT: RRR. ABSENT: diastolic murmur, rubs, systolic murmur Neurological exam: PRESENT: other - GCS 3. Results Laboratory Results: 06/12/19 10:38 06/13/19 04:15 05/28/19 05/28/19 05/28/19 19:10 19:10 22:25 Creatine Kinase CK-MB (CK-2) Troponin I 0.050 0.054 NT-Pro-B Natriuret Pep 2240 H 05/31/19 05/31/19 06/05/19 23:43 23:43 15:23 Creatine Kinase 106 CK-MB (CK-2) 0.74 Troponin I 0.046 NT-Pro-B Natriuret Pep 358 Impressions: Abdomen/Pelvis CT 05/28/19 20:11 IMPRESSION: High-grade distal small bowel obstruction with transition point in the mid pelvis, likely from mechanical bowel obstruction. Small Bowel X-Ray 05/31/19 00:00 IMPRESSION: No oral contrast seen in the colon on the 22 hour delayed film, consistent with obstruction. Chest X-Ray 06/04/19 00:00 IMPRESSION: Asymmetric opacity in the left retrocardiac space that could represent atelectasis or pneumonia. Correlation with clinical findings is recommended. KUB X-Ray 06/04/19 07:00 IMPRESSION: Unchanged radiographic appearance of the abdomen with air- filled/distended loops of small bowel in the mid abdomen that measure up to 4.1 cm in diameter. Lung Scan-VQ NM 06/05/19 09:20 IMPRESSION: No perfusion abnormality of the lungs to suggest pulmonary embolism on perfusion only scintigraphic lung scan. Assessment and Plan - Diagnosis (1) Comfort measures only status Is this a current diagnosis for this admission?: Yes Plan: As per request to remove BiPAP and switch to nasal cannula. Continue comfort measures. Increase morphine and Ativan if patient shows any signs of air hunger or distress. (2) Acute respiratory failure Qualifiers: Respiratory failure complication: unspecified whether with hypoxia or hypercapnia Qualified Code(s): J96.00 - Acute respiratory failure, unspecified whether with hypoxia or hypercapnia Is this a current diagnosis for this admission?: Yes Plan: CODE STATUS changed to SUBWAY TRAIN OPERATOR as of 06/12/2019. Previous plan was as below. Unchanged. tachypneic however SPO2 is WNL on BiPAP . Leukocytosis resolved. Afebrile. Likely due to underlying pneumonia/pneumonitis. 05/27/2019. Chest x-ray asymmetric opacity in the left retrocardiac space that could represent atelectasis or pneumonia. Patient still has significant leukocytosis, 06/05/2019. Mild hypoxia with respiratory alkalosis. VQ scan negative for PE. Continue supplemental oxygen, duo nebs, PRN BiPAP empiric IV antibiotics. 06/07/2018. Switch levofloxacin to ceftriaxone. Repeat blood culture negative so far. (3) Aspiration pneumonitis Is this a current diagnosis for this admission?: Yes Plan: CODE STATUS changed to SUBWAY TRAIN OPERATOR as of 06/12/2019. Previous plan was as below. Afebrile, WBC wnl. Due to worsening neurodegenerative disorder. Patient has advanced supranuclear palsy. I have consulted Dr. Gomez electro tech and his recommendations are to continue BiPAP, antibiotics, Nasal trumpet suctioning every 4 hours, NG for intermittent gastric suction and anxiolytics. Continue BiPAP, antibiotics, anti-anxiety, morphine, nasal trumpet every 4 hours. Patient family refusing nasogastric tube or PEG tube placement. (4) Tachypnea Is this a current diagnosis for this admission?: Yes Plan: CODE STATUS changed to SUBWAY TRAIN OPERATOR as of 06/12/2019. Previous plan was as below. Patient very tachypneic however has not been very hypoxic. Unfortunately due to profound neurological I have been unable to find out if he is in pain or anxious. I have consulted Dr. Gomez electro tech who thinks his tachypnea could be due to underlying tidal volumes caused by neuromuscular weakness due to underlying neurodegenerative disorder as well as anxiety and pain. He is suggesting BiPAP, continuation of antibiotics, Nasal trumpet suctioning e very 4 hours, NG for intermittent gastric suction and anxiolytics. Continue BiPAP, anxiety lytics, morphine, nasal trumpet every 4 hours. Patient family refusing nasogastric tube placement. (5) Acute exacerbation of CHF (congestive heart failure) Qualifiers: Heart failure type: unspecified Qualified Code(s): I50.9 - Heart failure, unspecified Is this a current diagnosis for this admission?: Yes Plan: CODE STATUS changed to SUBWAY TRAIN OPERATOR as of 06/12/2019. Previous plan was as below. Appears euvolemic based on physical examination. This was likely due to aggressive volume resuscitation for underlying hypernatremia and CAD medications were on hold. Appears euvolemic. DC IV Lasix. Continue monitoring volume status, and vitals. (6) Small bowel obstruction Is this a current diagnosis for this admission?: Yes Plan: Resolved. Now on comfort measures (7) CAD (coronary artery disease) of artery bypass graft Qualifiers: Associated angina: without angina Is this a current diagnosis for this admission?: Yes Plan: CODE STATUS changed to SUBWAY TRAIN OPERATOR as of 06/12/2019. Previous plan was as below. History of CABG. Continue antiplatelets, beta-blockers and GLENN. Allergic to statins. Note. Patient has not been able to take his p.o. meds due to p.o. intolerance. Family is refusing nasogastric tube placement. (8) Acute kidney injury (nontraumatic) Is this a current diagnosis for this admission?: Yes Plan: CODE STATUS changed to SUBWAY TRAIN OPERATOR as of 06/12/2019. Previous plan was as below. Resolved with IV fluids. (9) Hypernatremia Is this a current diagnosis for this admission?: Yes Plan: CODE STATUS changed to SUBWAY TRAIN OPERATOR as of 06/12/2019. Previous plan was as below. Resovled. Patient's SUBWAY TRAIN OPERATOR status has been rescinded by family. Currently DNR/DNI. [facility] D5W to D5W / NS. BMP tomorrow. (10) Progressive supranuclear palsy Is this a current diagnosis for this admission?: Yes Plan: CODE STATUS changed to SUBWAY TRAIN OPERATOR as of 06/12/2019. Previous plan was as below. DNR/DNR status. Continue supportive measures.
[2019-06-15] MEDS: DEXTROSE 5%-NORMAL SALINE 1,000 ML IV PRN (16:54)
[2019-06-16] MEDS: MORPHINE SULFATE 10 MG/ML INJ IV PRN ×7 (11:00→23:33)
[2019-06-16] MEDS: LORAZEPAM INJ 2 MG/1 ML VIAL IV PRN ×7 (11:13→23:34)
[2019-06-16] MEDS: PREDNISOLONE ACETATE 1% OPH SUSP 5 ML OD SCH (11:28)
[2019-06-16] MEDS ORDERED: LORAZEPAM INJ 2 MG/1 ML VIAL IM ONE (11:30)
--- NOTE | 2019-06-16 13:08 | PDOC PROGRESS REPORT ---
Subjective Progress Note for:: 06/16/19 Subjective:: SURYA ALEXIS is a 74 year old male who presents the emergency room via EMS with his family complaining of a cough. Patient has supranuclear palsy and is unable to assist with the communication of his history. Family members admit that he has had a recently increased cough with decreased oral intake and one episode of vomiting at home prior to transport to the ER. EMS reported finding a fever of 101 F at the time of transport. In the emergency room patient was found to have an elevated lactic acid, tachycardia, leukocytosis, fever, radiographic evidence of a bowel obstruction and acute urinary retention. Patient was treated with IV fluids, Fernandez catheter and an NG tube was placed. He was started on Zosyn as antibiotic therapy and was subsequently admitted to the hospital service for further evaluation treatment. 06/05/2019. Patient CODE STATUS has been changed from BEAD STRINGER to DNR/DNI per family as patient is having normal bowel movements. Overnight patient was noted to have developed tachypnea and lower upper extremity swelling. Advised patient is not communicative however is present at bedside and daughter is on the phone while I am inpatient. They are very concerned about the fact that patient is having tachypnea, and they want us to rule out PE, but also wants to start TPN as patient is not able to eat. I have advised patient family that is better to involve speech therapy to see if patient could eat on his own instead of hav ing TPN which have multiple complications. Patient's family is agreeable with the plan at this point. They want patient to be transferred to rehab once he is stable enough. 06/06/2019. No acute events overnight, patient still tachypneic, unchanged neurological symptoms, failed swallow eval. patient family still wants to pursue TPN if he fails speech therapy. I have mentioned to family the long-term solution for his p.o. intolerance with the PEG tube versus TPN however patient family wants to use TPN before transitioning to PEG tube 06/07/2019. No acute events overnight. Patient slept very tachypneic and neurological status remains unchanged. Has failed swallow eval. I have consulted Dr. Gomez real estate rental agent for further input into tachycardia, eating tachycardia could be due to low tidal volume due to neuromuscular respiratory weakness and anxiety and pain. He was restarted on BiPAP for now, continue antibiotics. 06/08/2019. No significant change. Neurologically unchanged. Patient still very tachypneic while being on BiPAP. Worsening leukocytosis, sodium level improving. Has failed swallow evaluation. Family still wants to continue treatment. Has not been receiving p.o. meds due to p.o. intolerance, patient's family does not want PEG tube or nasogastric tube. 06/09/2019. No significant change. Neurologically unchanged. Patient still very tachypneic while being on BiPAP. Leukocytosis and sodium level improving. Has failed swallow evaluation. Family still wants to continue treatment. Has not been receiving p.o. meds due to p.o. intolerance, patient's family does not want PEG tube or nasogastric tube. 06/10/2019. No significant changes compared to yesterday, patient is still tachypneic, and occasionally closes his eyes to command otherwise neurologically remains the same, is at the bedside who stating that there is still discussing BEAD STRINGER with her family however they have not made final decision and they also like to continue current treatment. 06/11/2019. No significant changes compared to yesterday, patient is still tachypneic, neurologically remains the same, is at the bedside who stating that there is still discussing BEAD STRINGER with her family however she is waiting for her daughter who is coming from [place], they like to continue current treatment meanwhile. 06/12/2019. Had an extensive discussion with his and children and they have all decided to switch CODE STATUS to comfort measures but as per 's request they still want to treat his fever and continue BiPAP until tomorrow when his daughter will be in town. 06/15/2019. No acute events overnight. Patient is on CPAP, tachypnea seems to have improved, as per patient is still not does not communicate. wants to remove BiPAP and switch to nasal cannula. Patient is accompanied by his , daughter and son. All questions answered. Concerns addressed. 06/15/2019. Patient's IV access lost and had to get another one after several attempts by ICU nurses. I had to DC IV fluids as patient has only one IV access were not able to establish on the room. Patient family agrees. Patient's family are present in the room, stating that they would want to remove BiPAP but waiting for some family members. Reason For Visit: ACUTE BOWEL OBSTRUCTION,ACUTE URINARY RETENTION Physical Exam Vital Signs: Temp Pulse Resp BP Pulse Ox 100.9 F H 104 H 49 H 140/71 H 100 06/14/19 22:00 06/12/19 13:15 06/16/19 09:13 06/12/19 09:18 06/16/19 09:13 Intake & Output 06/15/19 06/16/19 06/17/19 06:59 06:59 06:59 Intake Total 979 922 Output Total 225 Balance 754 922 General appearance: PRESENT: severe distress Respiratory exam: PRESENT: accessory muscle use, decreased breath sounds, tachypnea Cardiovascular exam: PRESENT: tachycardia Neurological exam: PRESENT: other - GCS 3 Results Laboratory Results: 06/12/19 10:38 06/13/19 04:15 05/28/19 05/28/19 05/28/19 19:10 19:10 22:25 Creatine Kinase CK-MB (CK-2) Troponin I 0.050 0.054 NT-Pro-B Natriuret Pep 2240 H 05/31/19 05/31/19 06/05/19 23:43 23:43 15:23 Creatine Kinase 106 CK-MB (CK-2) 0.74 Troponin I 0.046 NT-Pro-B Natriuret Pep 358 Impressions: Abdomen/Pelvis CT 05/28/19 20:11 IMPRESSION: High-grade distal small bowel obstruction with transition point in the mid pelvis, likely from mechanical bowel obstruction. Small Bowel X-Ray 05/31/19 00:00 IMPRESSION: No oral contrast seen in the colon on the 22 hour delayed film, consistent with obstruction. Chest X-Ray 06/04/19 00:00 IMPRESSION: Asymmetric opacity in the left retrocardiac space that could represent atelectasis or pneumonia. Correlation with clinical findings is recommended. KUB X-Ray 06/04/19 07:00 IMPRESSION: Unchanged radiographic appearance of the abdomen with air- filled/distended loops of small bowel in the mid abdomen that measure up to 4.1 cm in diameter. Lung Scan-VQ PA 06/05/19 09:20 IMPRESSION: No perfusion abnormality of the lungs to suggest pulmonary embolism on perfusion only scintigraphic lung scan. Assessment and Plan - Diagnosis (1) Comfort measures only status Is this a current diagnosis for this admission?: Yes Plan: As per request to remove BiPAP and switch to nasal cannula considering removing BiPAP but waiting for for family members. Continue comfort measures. Increase morphine and Ativan if patient shows any signs of air hunger or distress. (2) Acute respiratory failure Qualifiers: Respiratory failure complication: unspecified whether with hypoxia or hyperc apnia Qualified Code(s): J96.00 - Acute respiratory failure, unspecified whether with hypoxia or hypercapnia Is this a current diagnosis for this admission?: Yes Plan: CODE STATUS changed to BEAD STRINGER as of 06/12/2019. Previous plan was as below. Unchanged. tachypneic however SPO2 is WNL on BiPAP . Leukocytosis resolved. Afebrile. Likely due to underlying pneumonia/pneumonitis. 05/27/2019. Chest x-ray asymmetric opacity in the left retrocardiac space that could represent atelectasis or pneumonia. Patient still has significant leukocytosis, 06/05/2019. Mild hypoxia with respiratory alkalosis. VQ scan negative for PE. Continue supplemental oxygen, duo nebs, PRN BiPAP empiric IV antibiotics. 06/07/2018. Switch levofloxacin to ceftriaxone. Repeat blood culture negative so far. (3) Aspiration pneumonitis Is this a current diagnosis for this admission?: Yes Plan: CODE STATUS changed to BEAD STRINGER as of 06/12/2019. Previous plan was as below. Afebrile, WBC wnl. Due to worsening neurodegenerative disorder. Patient has advanced supranuclear palsy. I have consulted Dr. Gomez real estate rental agent and his recommendations are to continue BiPAP, antibiotics, Nasal trumpet suctioning every 4 hours, NG for intermittent gastric suction and anxiolytics. Continue BiPAP, antibiotics, anti-anxiety, morphine, nasal trumpet every 4 hours. Patient family refusing nasogastric tube or PEG tube placement. (4) Tachypnea Is this a current diagnosis for this admission?: Yes Plan: CODE STATUS changed to BEAD STRINGER as of 06/12/2019. Previous plan was as below. Patient very tachypneic however has not been very hypoxic. Unfortunately due to profound neurological I have been unable to find out if he is in pain or anxious. I have consulted Dr. Gomez real estate rental agent who thinks his tachypnea could be due to underlying tidal volumes caused by neuromuscular weakness due to underlying neurodegenerative disorder as well as anxiety and pain. He is suggesting BiPAP, continuation of antibiotics, Nasal trumpet suctioning every 4 hours, NG for intermittent gastric suction and anxiolytics. Continue BiPAP, anxiety lytics, morphine, nasal trumpet every 4 hours. Patient family refusing nasogastric tube placement. (5) Acute exacerbation of CHF (congestive heart failure) Qualifiers: Heart failure type: unspecified Qualified Code(s): I50.9 - Heart failure, unspecified Is this a current diagnosis for this admission?: Yes Plan: CODE STATUS changed to BEAD STRINGER as of 06/12/2019. Previous plan was as below. Appears euvolemic based on physical examination. This was likely due to aggressive volume resuscitation for underlying hypernatremia and CAD medications were on hold. Appears euvolemic. DC IV Lasix. Continue monitoring volume status, and vitals. (6) Small bowel obstruction Is this a current diagnosis for this admission?: Yes Plan: Resolved. Now on comfort measures (7) CAD (coronary artery disease) of artery bypass graft Qualifiers: Associated angina: without angina Is this a current diagnosis for this admission?: Yes Plan: CODE STATUS changed to BEAD STRINGER as of 06/12/2019. Previous plan was as below. History of CABG. Continue antiplatelets, beta-blockers and GLENN. Allergic to statins. Note. Patient has not been able to take his p.o. meds due to p.o. intolerance. Family is refusing nasogastric tube placement. (8) Acute kidney injury (nontraumatic) Is this a current diagnosis for this admission?: Yes Plan: CODE STATUS changed to BEAD STRINGER as of 06/12/2019. Previous plan was as below. Resolved with IV fluids. (9) Hypernatremia Is this a current diagnosis for this admission?: Yes Plan: CODE STATUS changed to BEAD STRINGER as of 06/12/2019. Previous plan was as below. Resovled. Patient's BEAD STRINGER status has been rescinded by family. Currently DNR/DNI. tic D5W to D5W 08/11 NS. BMP tomorrow. (10) Progressive supranuclear palsy Is this a current diagnosis for this admission?: Yes Plan: CODE STATUS changed to BEAD STRINGER as of 06/12/2019. Previous plan was as below. DNR/DNR status. Continue supportive measures.
[2019-06-17] MEDS: LORAZEPAM INJ 2 MG/1 ML VIAL IV PRN ×11 (00:34→18:49)
[2019-06-17] MEDS: MORPHINE SULFATE 10 MG/ML INJ IV PRN ×10 (00:34→11:42)
[2019-06-17] MEDS: DEXTROSE 5%-NORMAL SALINE 1,000 ML IV PRN (01:40)
[2019-06-17] MEDS: PREDNISOLONE ACETATE 1% OPH SUSP 5 ML OD SCH (08:07)
[2019-06-17] MEDS: SCOPOLAMINE HYDROBROMIDE 1.5 MG PATCH.TD72 TD SCH (09:15)
[2019-06-17] MEDS: ACETAMINOPHEN 650 MG SUPP.RECT PR PRN ×2 (12:28→21:00)
[2019-06-17] MEDS: HYDROMORPHONE HCL 30 MG/60 ML RTUINJ IV PRN (12:57)
--- NOTE | 2019-06-17 15:20 | PDOC PROGRESS REPORT ---
Subjective Progress Note for:: 06/17/19 Subjective:: No adverse events overnight. He is requiring very frequent dosing with morphine and so we decided to switch him to a Dilaudid continuous infusion today. His family was in agreement with that plan. Reason For Visit: ACUTE BOWEL OBSTRUCTION,ACUTE URINARY RETENTION Physical Exam Vital Signs: Temp Pulse Resp BP Pulse Ox 98.5 F 104 H 40 H 140/71 H 100 06/17/19 14:14 06/12/19 13:15 06/17/19 12:58 06/12/19 09:18 06/16/19 09:13 Intake & Output 06/16/19 06/17/19 06/18/19 06:59 06:59 06:59 Intake Total 922 1000 Balance 922 1000 General appearance: PRESENT: no acute distress Respiratory exam: PRESENT: crackles, symmetrical, tachypnea. ABSENT: accessory muscle use, chest wall tenderness, prolonged expiratory phas, rhonchi, unlabored, wheezes Cardiovascular exam: PRESENT: RRR, +S1, +S2 Pulses: PRESENT: normal carotid pulses Vascular exam: PRESENT: normal capillary refill GI/Abdominal exam: PRESENT: hypoactive bowel sounds, soft. ABSENT: distended, guarding, rebound, tenderness Extremities exam: PRESENT: +1 edema. ABSENT: clubbing Musculoskeletal exam: PRESENT: normal inspection. ABSENT: deformity Neurological exam: ABSENT: awake Skin exam: PRESENT: dry, warm Results Laboratory Results: 06/12/19 10:38 06/13/19 04:15 05/28/19 05/28/19 05/28/19 19:10 19:10 22:25 Creatine Kinase CK-MB (CK-2) Troponin I 0.050 0.054 NT-Pro-B Natriuret Pep 2240 H 05/31/19 05/31/19 06/05/19 23:43 23:43 15:23 Creatine Kinase 106 CK-MB (CK-2) 0.74 Troponin I 0.046 NT-Pro-B Natriuret Pep 358 Impressions: Abdomen/Pelvis CT 05/28/19 20:11 IMPRESSION: High-grade distal small bowel obstruction with transition point in the mid pelvis, likely from mechanical bowel obstruction. Small Bowel X-Ray 05/31/19 00:00 IMPRESSION: No oral contrast seen in the colon on the 22 hour delayed film, consistent with obstruction. Chest X-Ray 06/04/19 00:00 IMPRESSION: Asymmetric opacity in the left retrocardiac space that could represent atelectasis or pneumonia. Correlation with clinical findings is recommended. KUB X-Ray 06/04/19 07:00 IMPRESSION: Unchanged radiographic appearance of the abdomen with air- filled/distended loops of small bowel in the mid abdomen that measure up to 4.1 cm in diameter. Lung Scan-VQ NM 06/05/19 09:20 IMPRESSION: No perfusion abnormality of the lungs to suggest pulmonary embolism on perfusion only scintigraphic lung scan. Assessment and Plan - Diagnosis (1) Acute exacerbation of CHF (congestive heart failure) Qualifiers: Heart failure type: unspecified Qualified Code(s): I50.9 - Heart failure, unspecified Is this a current diagnosis for this admission?: Yes Plan: On comfort measures (2) Acute respiratory failure with hypoxia and hypercapnia Is this a current diagnosis for this admission?: Yes Plan: On comfort measures, appears fairly comfortable at this time (3) Comfort measures only status Is this a current diagnosis for this admission?: Yes (4) Small bowel obstruction Is this a current diagnosis for this admission?: Yes Plan: Resolved, now on comfort measures (5) Supranuclear palsies, progressive Is this a current diagnosis for this admission?: Yes - Time Time Spent with patient: 15-24 minutes
[2019-06-18] MEDS: LORAZEPAM INJ 2 MG/1 ML VIAL IV PRN ×2 (01:13→05:56)
[2019-06-18] MEDS: PREDNISOLONE ACETATE 1% OPH SUSP 5 ML OD SCH (07:47)
[2019-06-18] MEDS: HYDROMORPHONE HCL 30 MG/60 ML RTUINJ IV PRN (10:19)
[2019-06-18] MEDS ORDERED: KETOROLAC TROMETHAMINE INJ/PF 30 MG/1 ML SDV IV ONE (10:20)
--- NOTE | 2019-06-18 15:04 | Death Summary ---
Summary Date : 06/18/19 Time of :: 12:38 Autopsy: No Resuscitation Status: Comfort Measures Only - Final Diagnosis (1) Acute exacerbation of CHF (congestive heart failure) Is this a current diagnosis for this admission?: Yes (2) Acute respiratory failure with hypoxia and hypercapnia Is this a current diagnosis for this admission?: Yes (3) Comfort measures only status Is this a current diagnosis for this admission?: Yes (4) Small bowel obstruction Is this a current diagnosis for this admission?: Yes (5) Supranuclear palsies, progressive Is this a current diagnosis for this admission?: Yes Hospital Course:: He was initially admitted with a small bowel obstruction, managed conservatively, required a lot of IV fluids. This wound up triggering some acute heart failure. This did improve some with diuretics. He wound up having to go on antibiotics for an aspiration pneumonia as a result of his progressive supranuclear palsy. Because of his declining condition and poor baseline status, his family ultimately decided to make him hospice, and then decided to put him on comfort measures only. He was managed here expectantly until he this afternoon at 1238 hrs.
== END 2019-06-18 12:30 | DRG 388 ==
LOC: ER 19:31 → EH 05-29 00:18 → 3W 05-29 03:13 → ICU 05-31 23:22 → 5 06-01 21:37
PROVIDERS: ADMIT Emergency Medicine; ATTEND Internal Medicine
PROC: 5A09557 Assistance with Respiratory Ventilation, Greater than 96 Consecutive Hours, Continuous Positive Airway Pressure (ICD-10-PCS; principal; 2019-06-07)
DX: K56.600 Partial intestinal obstruction, unspecified as to cause (principal); J96.02 Acute respiratory failure with hypercapnia; J96.01 Acute respiratory failure with hypoxia; J69.0 Pneumonitis due to inhalation of food and vomit; N17.9 Acute kidney failure, unspecified; N39.0 Urinary tract infection, site not specified; E87.0 Hyperosmolality and hypernatremia; E87.2 Acidosis; K59.2 Neurogenic bowel, not elsewhere classified; I25.810 Atherosclerosis of coronary artery bypass graft(s) without angina pectoris; G23.1 Progressive supranuclear ophthalmoplegia [Steele-Richardson-Olszewski]; E86.0 Dehydration; I50.9 Heart failure, unspecified; F06.1 Catatonic disorder due to known physiological condition; R40.2430 Glasgow coma scale score 3-8, unspecified time; R33.9 Retention of urine, unspecified; K59.09 Other constipation; R11.2 Nausea with vomiting, unspecified; R53.1 Weakness; Z66 Do not resuscitate; Z79.2 Long term (current) use of antibiotics; Z79.82 Long term (current) use of aspirin; Z79.52 Long term (current) use of systemic steroids; Z79.899 Other long term (current) drug therapy; Z94.7 Corneal transplant status; Z95.1 Presence of aortocoronary bypass graft
CPT/HCPCS: 36415; 36600; 51702; 71045; 74018; 74177; 74250; 78580; 80048; 80053; 81001; 82150; 82550; 82553; 82803; 82962; 83605; 83690; 83735; 83880; 84295; 84439; 84443; 84481; 84484; 85025; 85027; 85379; 85610; 87040; 87077; 87086; 87150; 87186; 93005; 93010; 94660; 94667; 94668; 96365; 96366; 96368; 96375; 99285; 99291; A4315; A9540; C9113; J0696; J1170; J1644; J1885; J1940; J1956; J2060; J2270; J2300; J2543; J2765; J3370; J3480; J3490; J7030; J7042; J7050; J7060; J7120; J7614; J7620; Q9969; S0028